=== PATIENT | male | born 1960 | race African-American/Black ===

== ENCOUNTER 2018-09-30 00:09 | Inpatient (IN) ==
[2018-09-30] MEDS ORDERED: D5% in 0.45% NACL 1,000 ML IVC PRN (01:43)
[2018-09-30] MEDS ORDERED: Insulin Regular, Human 100 UNIT/ML IV PRN ×2 (01:43)
[2018-09-30] MEDS ORDERED: 0.9 % Sodium Chloride 1,000 ML IVC PRN ×2 (01:45)
[2018-09-30] MEDS ORDERED: 0.9 % Sodium Chloride w KCl 20 MEQ/1,000 ML MLS IVC PRN (01:45)
--- NOTE | 2018-09-30 01:47 | Internal Med History&Physical ---
<Taniya San N - Last Filed: 09/30/18 05:51> Date of Encounter: 09/30/18 Time of Encounter: 01:47 Internal Medicine - H&P: HPI Chief complaint: Nausea/vomiting Admitted From: Hospital to Hospital Transfer Plans for Post Hospital Care: Home History of present illness: Mr. Vick is a 58 year old male with a history of asthma, CAD, diabetes, hypertension, renal disease, hypercholesterolemia, and myocardial infarction. Recent medical history is significant for hospitalization at this facility on 09/19/2018 for management of DKA and NSTEMI, with discharge on 09/25/2018. He arrived at [facility] as a transfer from [facility], where he presented for evaluation of nausea and vomiting. Patient was found to be in DKA, with glucose >700. Laboratory studies were also significant for WBC 28, troponin 0.67, and lactic acid 6.9. Patient was started on an insulin gtt and fluid hydration per DKA protocol. Patient was seen and evaluated shortly after arrival to this facility. At that time, he was somewhat uncooperative with exam, providing minimal response to questions. He voices significant nausea, but denies any abdominal pain, chest pain, shortness of breath, or other complaints at this time. Past Med Surg Social Fam HX - Past Medical History Medical history: asthma, coronary artery disease, diabetes, hypertension, myocardial infarction, RA, renal disease, other Additional medical history: hypercholesterolemia. chronic renal insufficiency stage III. diabetic neuropathy. diabetic retinopathy. vitamin d deficiency. overweight. riht sided spondyloysis. bronchitis Psychiatric history: no psych history - Past Surgical History Surgical History: cataract, cholecystectomy, orthopedic, other, other Additional surgical history: rotator cuff repair left. laser treatmet of both eyes. rotator cuff repair right. gallbladder surgery. left elbow surgery secondary to arthritis. right elbow surgery secondary to arthritis. heart cath- no stents. L elbow lateral epicondylitis. steroid injection back - Social History Smoking Status: Never smoker Smokeless Tobacco Status: No Alcohol use: none Drug use: none Internal Medicine - H&P: Meds Albuterol Sulfate [Proair Hfa] 2 puff IH Q4-6H PRN 09/19/18 [History] Atorvastatin Calcium [Lipitor] 20 mg PO DAILY 09/19/18 [History] Gabapentin 600 mg PO TID 09/19/18 [History] Insulin DETEMIR [Levemir] 20 unit SQ HS 09/19/18 [History] Insulin LISPRO [HumaLOG] 0 unit SQ TID 09/19/18 [History] Losartan Potassium 100 mg PO DAILY 09/19/18 [History] Metoprolol Succinate [Toprol Xl] 25 mg PO DAILY 09/19/18 [History] Famotidine [Pepcid] 20 mg PO BID tablet 09/25/18 [Rx] Famotidine [Pepcid] 20 mg PO BID 30 Days #60 tablet 09/25/18 [Rx] Mag Hydrox/Al Hydrox/Simeth [Maalox] 30 ml PO Q4H PRN udc 09/25/18 [Rx] Metoclopramide [Reglan] 10 mg PO QIDAC tablet 09/25/18 [Rx] Metoclopramide [Reglan] 10 mg PO QIDAC #120 tablet 09/25/18 [Rx] Omeprazole [PriLOSEC] 20 mg PO BIDAC #30 cap 09/25/18 [Rx] Omeprazole [PriLOSEC] 20 mg PO DAILY@0630 capsule. 09/25/18 [Rx] Sucralfate [Carafate] 1 gm PO TIDAC udc 09/25/18 [Rx] Sucralfate [Carafate] 1 gm PO TIDAC #90 mls 09/25/18 [Rx] Allergy/AdvReac Type Severity Reaction Status Date / Time morphine Allergy Itching Verified 07/13/18 13:39 ROS unobtainable: due to mental status, other (lack of patient cooperation) All Systems PM: A 10-system review of systems was performed and is negative for pertinent findings except as documented above in the HPI. - Constitutional Exam: GENERAL: Ill-appearing adult male in mild distress secondary to nausea. Patient is reluctant to answer questions, and provides limited information. HEENT: Atraumatic and normocephalic. CARDIOVASCULAR: Regular rate and rhythm. S1 and S2 present. No murmurs, gallops, or rubs. RESPIRATORY: Clear to auscultation bilaterally. Chest rises and falls symmetric ally without accessory muscle use. GASTROINTESTINAL: Abdomen is soft, nontender, nondistended. Bowel sounds present 4 quadrants. EXTREMITIES: No clubbing, cyanosis, or edema present in bilateral lower extremities. Mild right upper extremity edema present. SKIN: Warm, dry, and intact. NEUROLOGIC: No apparent focal deficits. Patient is minimally cooperative with exam. PSYCHIATRIC: Appropriate mood and affect. Internal Med - H&P Results - Labs CBC & Chem 7: 09/30/18 02:11 09/30/18 02:11 - Assessment and Plan (1) DKA (diabetic ketoacidoses) Current Visit: Yes Status: Acute Assessment and plan: Suspect secondary to medication noncompliance. Patient reportedly had initial serum glucose >700. Repeat laboratory studies obtained after arrival at [facility] were significant for glucose 324, with beta hydroxybutyric acid >2.00, and anion gap of 30. VBG demonstrates pH 7.37, PCO2 18, PO2 121, and HCO3 10. Hemoglobin A1c was noted to be elevated at 9.2 on 09/19/2018. Plan: - Continue insulin gtt and IVF hydration per DKA protocol. - Monitor and replete electrolytes Q2H per protocol. Qualifiers: Diabetes mellitus type: type 2 Diabetes mellitus complication detail: without coma Qualified Code(s): E11.10 - Type 2 diabetes mellitus with ketoacidosis without coma (2) NSTEMI (non-ST elevated myocardial infarction) Current Visit: Yes Status: Acute Assessment and plan: Initial troponin at outside facility was elevated at 0.67; repeat troponin obtained after arrival to [facility] was found to be significantly elevated at 13.78. Patient denies any chest pain or discomfort, and EKG performed at [facility] did not show any ST abnormalities or evidence of acute ischemia. - Stat repeat troponin pending. If troponin elevation is confirmed, will start heparin gtt. - Cardiology consult ordered. - Repeat and trend troponin Q6H. (3) Leukocytosis Current Visit: Yes Status: Acute Assessment and plan: Unclear etiology, secondary to DKA versus underlying infectious process. Patient was found to have initial CBC count of 28 at outside facility; repeat laboratory studies upon arrival to [facility] shows persistent leukocytosis with WBC 27.9. Patient was recently hospitalized for DKA, with discharge on 09/25/2018. During that admission, he was treated for suspected community acquired pneumonia //with doxycycline and ceftriaxone. Chest x-ray obtained at [facility] on 09/29/2018 does not demonstrate any findings concerning for acute pneumonia, and appears to be improved from previous studies. Patient does not have any apparent source of infection, and denies any fevers, chills, or acute illness. - No antimicrobial therapy initiated at this time. Patient's leukocytosis may be secondary to DKA; repeat CBC pending at ~1500. Qualifiers: Leukocytosis type: unspecified Qualified Code(s): D72.829 - Elevated white blood cell count, unspecified (4) Lactic acidosis Current Visit: Yes Status: Acute Assessment and plan: Unclear etiology, secondary to DKA versus underlying infectious process. Initial lactic acid at outside facility was elevated at 6.9; repeat obtained after arrival at [facility] was WNL at 1.3. - Continue IVF hydration as detailed above. (5) SENTHIL (acute kidney injury) Current Visit: Yes Status: Acute Assessment and plan: Suspect prerenal etiology of dehydration secondary to DKA. Laboratory studies are significant for a serum creatinine of 2.14; previous serum creatinine on 09/24/2018 was WNL at 1.00. - Continue IVF hydration per DKA protocol. - Avoid nephrotoxins and renally dose medications as appropriate. - Repeat and trend serum creatinine. (6) Swelling of right upper extremity Current Visit: Yes Status: Acute Assessment and plan: Patient reports right upper extremity swelling that has been present for the last week. He denies any pain or discomfort, and extremity does not appear to be cellulitic. - Right upper extremity doppler exam pending to rule out DVT. (7) DVT prophylaxis Current Visit: Yes Status: Acute Assessment and plan: - Heparin 5000units SQ Q12H. - Time Spent With Patient Total time spent is greater than 50% in coordination of care (as documented) at patient's floor/unit and/or counseling patient: <Aneesh Colón - Last Filed: 09/30/18 07:34> Date of Encounter: 09/30/18 Internal Medicine - H&P: HPI History of present illness: Mr. Vick is a 58 year old male All Systems PM: A 10-system review of systems was performed and is negative for pertinent findings except as documented above in the HPI. - Constitutional Vitals: Temp Pulse Resp BP Pulse Ox 100.0 F H 114 18 136/66 98 09/30/18 06:36 09/30/18 06:36 09/30/18 06:36 09/30/18 06:36 09/30/18 06:36 Internal Med - H&P Results - Labs CBC & Chem 7: 09/30/18 02:11 05/18/19 05:51 Labs: Short CBC 09/30/18 Range/Units 02:11 WBC 27.9 H D (4.3-11.1) K/mcL Hgb 11.0 L (12.9-16.9) g/dL Hct 34.4 L (37.5-50.1) % Plt Count 282 (140-400) K/mcL Neutrophils # 23.8 H (1.6-8.9) K/mcL BMP 09/30/18 09/30/18 02:11 05:51 Sodium 144 148 H Potassium 3.4 L 3.1 L Chloride 102 111 H Carbon Dioxide 12 L 16 L BUN 30 H 28 H Creatinine 2.14 H 1.94 H Glucose 324 H 158 H Calcium 8.3 L 8.3 L Cardiac Enzymes 09/30/18 09/30/18 Range/Units 02:11 05:51 Troponin I 13.78 H* 17.23 H* (< 0.04) ng/mL Liver Function 09/30/18 Range/Units 02:11 Total Bilirubin 0.5 (0.3-1.0) mg/dL AST 31 (13-39) Units/L ALT 15 (7-52) Units/L Alkaline Phosphatase 114 H (34-104) Units/L Albumin 3.6 (3.5-5.7) g/dL - ABG Interpretation ABG results: 09/30/18 02:49 VBG pH 7.37 VBG pCO2 18 L VBG pO2 121 H VBG HCO3 10 L - Time Spent With Patient Total time spent is greater than 50% in coordination of care (as documented) at patient's floor/unit and/or counseling patient: - Attending Attestation I saw and evaluated the patient. I reviewed the residents note, performed my own physical examination and agree with findings and plan as documented in the residents note. Patient seen and examined on 09/30/18. Patient presented with DKA, recently in the hospital for DKA, NSTEMI and gastroparesis. He has a history of non-compliance. Currently anion gap not closed, and troponin has elevated to 13.78. Stat repeat this morn ing shows that it has elevated again to 17.23. Patient denies chest pain, EKG does not show ST elevations. Heparin drip ordered, will have cardiology see patient this morning as well. Continue DKA protocol, follow up cardiology recommendations.
[2018-09-30] MEDS: Ondansetron 4 MG/2 ML VIAL IVP PRN ×2 (02:04→14:40)
[2018-09-30] MEDS: 0.9 % Sodium Chloride 1,000 ML IVC SCH (02:09)
[2018-09-30] MEDS: 0.9 % Sodium Chloride w KCl 20 MEQ/1,000 ML MLS IVC PRN ×2 (02:20→04:31)
[2018-09-30 02:22] LABS: Basophils % 0.2 %; Immature Granulocytes % 1.9 % (0-4); Lymphocytes % 3.5 %; Mean Corpuscular Hemoglobin 28.1 pg (28.0-33.3); Mean Platelet Volume 11.3 fL (9.4-12.4); Red Blood Count 3.92 M/mcL (4.19-5.50)
[2018-09-30] MEDS: Insulin Human Regular 100 UNIT in 0.9 % Sodium Chloride 100 ML IVC SCH ×4 (02:22→10:50)
[2018-09-30 02:24] LABS: Basophils # 0.1 K/mcL (0.0-0.2); Hematocrit 34.4 % (37.5-50.1); Mean Corpuscular Volume 87.8 fL (83.0-100.0); Monocytes # 2.5 K/mcL (0.0-1.3); Neutrophils # 23.8 K/mcL (1.6-8.9); Platelet Count 282 K/mcL (140-400); Segmented Neutrophils % 85.4 %
[2018-09-30 02:41] LABS: Albumin 3.6 g/dL (3.5-5.7); Albumin/Globulin Ratio 1.9 (1.1-2.2); Bilirubin,Total 0.5 mg/dL (0.3-1.0); Calcium 8.3 mg/dL (8.6-10.3); Globulin 1.9 g/dL (2.4-3.5); Magnesium 1.9 mg/dL (1.6-2.6); Platelet Estimate Normal (Normal); Potassium 3.4 mEq/L (3.5-5.1); Total Protein 5.5 g/dL (6.4-8.9)
[2018-09-30 02:52] LABS: VBG HCO3 10 mEq/L (21-27); VBG Ionized Calcium 0.97 mmol/L (1.15-1.35); VBG PCO2 18 mmHg (41-51); VBG PH 7.37 pH Units (7.32-7.42); VBG PO2 121 mmHg (25-50)
[2018-09-30 02:55] LABS: Phosphorous 2.5 mg/dL (2.7-4.5)
[2018-09-30] MEDS ORDERED: Naloxone 0.4 MG/ML INJ IVP PRN (03:25)
[2018-09-30] MEDS: D5% in 0.45% NACL w KCl 20 MEQ/1,000 ML MLS IVC PRN ×4 (05:47→22:34)
[2018-09-30] MEDS ORDERED: *HR* Heparin 5,000 UNIT/ML VIAL SQ SCH (06:00)
[2018-09-30 06:18] LABS: Calcium 8.3 mg/dL (8.6-10.3); Potassium 3.1 mEq/L (3.5-5.1)
[2018-09-30 06:39] LABS: Estimated Average Glucose 226 mg/dl; Hemoglobin A1C 9.5 %
[2018-09-30] MEDS ORDERED: *HR* Heparin 5,000 UNIT/ML VIAL IVP PRN ×2 (06:39)
[2018-09-30] MEDS ORDERED: *HR* Heparin 5,000 UNIT/ML VIAL IVP ONE (06:39)
--- NOTE | 2018-09-30 07:34 | Internal Med Progress Note ---
Hospitalist Progress Note - Encounter Date of Encounter: 09/30/18 Time of Encounter: 08:26 - Subjective Interval History: mild central chest pain abdominal pain no headache no dyspnea one PIV, needs central IV access for electrolyte replacement and NSTEMI mgmt - Exam Vitals: Temp Pulse Resp BP Pulse Ox 100.0 F H 114 18 136/66 98 09/30/18 06:36 09/30/18 06:36 09/30/18 06:36 09/30/18 06:36 09/30/18 06:36 Exam: GENERAL: Ill-appearing, no carido resp distress. Patient is reluctant to answer questions, and provides limited information. HEENT: Atraumatic and normocephalic. CARDIOVASCULAR: Regular rate and rhythm. S1 and S2 present. No murmurs, gallops, or rubs. RESPIRATORY: Clear to auscultation bilaterally. Chest rises and falls symmetrically without accessory muscle use. GASTROINTESTINAL: Abdomen is soft, nontender, nondistended. No guarding or rebound EXTREMITIES: No clubbing, cyanosis, or edema present in bilateral lower extremities. Mild right upper extremity edema present. SKIN: Warm, dry, and intact. NEUROLOGIC: No apparent focal deficits. Patient is minimally cooperative with exam. Wakes up to voice and no dysarthria - Assessment and Plan (1) SENTHIL (acute kidney injury) Current Visit: Yes Status: Acute (2) DKA (diabetic ketoacidoses) Current Visit: Yes Status: Acute (3) DVT prophylaxis Current Visit: Yes Status: Acute (4) Leukocytosis Current Visit: Yes Status: Acute (5) NSTEMI (non-ST elevated myocardial infarction) Current Visit: Yes Status: Acute (6) SENTHIL (acute kidney injury) Current Visit: No Status: Acute - Summary of Assessment and Plan Summary of Assessment and Plan: Per H&P: ""Mr. Vick is a 58 year old male with a history of asthma, CAD, di abetes, hypertension, renal disease, hypercholesterolemia, and myocardial infarction. Recent medical history is significant for hospitalization at this facility on 09/19/2018 for management of DKA and NSTEMI, with discharge on 09/25/2018. He arrived at [facility] as a transfer from [facility], where he presented for evaluation of nausea and vomiting. Patient was found to be in DKA, with glucose >700. Laboratory studies were also significant for WBC 28, troponin 0.67, and lactic acid 6.9. Patient was started on an insulin gtt and fluid hydration per DKA protocol. Patient was seen and evaluated shortly after arrival to this facility. At that time, he was somewhat uncooperative with exam, pro viding minimal response to questions. He voices significant nausea, but denies any abdominal pain, chest pain, shortness of breath, or other complaints at this time."" (1) DKA (diabetic ketoacidoses) Suspect secondary to medication non-adherence Hemoglobin A1c was noted to be elevated at 9.2 on 09/19/2018. Plan: - Continue insulin gtt and IVF hydration per DKA protocol. - Monitor and replete electrolytes Q2H per protocol. - IR not available, GS consulted for central venous access, appreciated (2) NSTEMI (non-ST elevated myocardial infarction) Troponin 0.67 --> 13 --> 17 - start heparin gtt once IV access available - Cardiology consult requested, will optimize fluid status and renal function in case he needs a [facility] today - Repeat and trend troponin Q6H - EKG prn chest pain (3) Leukocytosis Unclear etiology, secondary to DKA versus underlying infectious process. Patient was found to have initial CBC count of 28 at outside facility; repeat laboratory studies upon arrival to [facility] shows persistent leukocytosis with WBC 27.9. Patient was recently hospitalized for DKA, with discharge on 09/25/2018. During that admission, he was treated for suspected community acquired pneumonia //with doxycycline and ceftriaxone. Chest x-ray obtained at [facility] on 09/29/2018 does not demonstrate any findings concerning for acute pneumonia, and appears to be improved from previous studies. Patient does not have any apparent source of infection, and denies any fevers, chills, or acute illness. - No antimicrobial therapy initiated at this time. Patient's leukocytosis may be secondary to DKA; repeat CBC pending at ~1500. (4) Lactic acidosis Unclear etiology, secondary to DKA versus underlying infectious process. Initial lactic acid at outside facility was elevated at 6.9; repeat obtained after arrival at [facility] was WNL at 1.3. - Continue IVF hydration as detailed above. (5) SENTHIL (acute kidney injury) Suspect prerenal etiology of dehydration secondary to DKA. Laboratory studies are significant for a serum creatinine of 2.14; previous serum creatinine on 09/24/2018 was WNL at 1.00. - Continue IVF hydration per DKA protocol. - Avoid nephrotoxins and renally dose medications as appropriate. - Repeat and trend serum creatinine. (6) Swelling of right upper extremity Patient reports right upper extremity swelling that has been present for the las t week. He denies any pain or discomfort, and extremity does not appear to be cellulitic. - Right upper extremity doppler exam pending to rule out DVT. (7) DVT prophylaxis - Heparin gtt - Time Spent with Patient Total time spent is greater than 50% in coordination of care (as documented) at patient's floor/unit and/or counseling patient: Internal Medicine: Result - Labs CBC & Chem 7: 09/30/18 02:11 09/30/18 05:51 Labs: Short CBC 09/30/18 Range/Units 02:11 WBC 27.9 H D (4.3-11.1) K/mcL Hgb 11.0 L (12.9-16.9) g/dL Hct 34.4 L (37.5-50.1) % Plt Count 282 (140-400) K/mcL Neutrophils # 23.8 H (1.6-8.9) K/mcL BMP 09/30/18 09/30/18 02:11 05:51 Sodium 144 148 H Potassium 3.4 L 3.1 L Chloride 102 111 H Carbon Dioxide 12 L 16 L BUN 30 H 28 H Creatinine 2.14 H 1.94 H Glucose 324 H 158 H Calcium 8.3 L 8.3 L Cardiac Enzymes 09/30/18 09/30/18 Range/Units 02:11 05:51 Troponin I 13.78 H* 17.23 H* (< 0.04) ng/mL Liver Function 09/30/18 Range/Units 02:11 Total Bilirubin 0.5 (0.3-1.0) mg/dL AST 31 (13-39) Units/L ALT 15 (7-52) Units/L Alkaline Phosphatase 114 H (34-104) Units/L Albumin 3.6 (3.5-5.7) g/dL (2) DKA (diabetic ketoacidoses) Qualifiers: Diabetes mellitus type: type 2 Diabetes mellitus complication detail: without coma Qualified Code(s): E11.10 - Type 2 diabetes mellitus with ketoacidosis without coma (4) Leukocytosis Qualifiers: Leukocytosis type: unspecified Qualified Code(s): D72.829 - Elevated white blood cell count, unspecified
--- NOTE | 2018-09-30 08:59 | Cardiology Consult Note ---
Date of Encounter: 09/30/18 Time of Encounter: 08:00 Assessment and Plan (1) Leukocytosis Current Visit: Yes Status: Acute Per cardiology: -WBC elevated, lactic acid elevated, tachycardic. -Blood cultures pending. -Temp 100.2. -Reports fever, chills. -Management per primary service. Qualifiers: Leukocytosis type: unspecified Qualified Code(s): D72.829 - Elevated white blood cell count, unspecified (2) NSTEMI (non-ST elevated myocardial infarction) Current Visit: Yes Status: Acute Per cardiology: -NSTEMI, trops 0.18 Vani, 13.78, 17.23. -Denies chest pain. -ECG with ST, non-specific ST and T wave abnormalities noted. -Heparin drip ordered, however not on currently due to need for peripheral IV access-Central line placement pending. -ON asa, statin. -TTE 09/2018 with LVEF preserved, no wall motion abnromalities. -[facility] [place] [place] with moderate CAD. -Recommend heparin drip. Will add BB. -Will repeat limited echo. -Plan for LHC when medically stable, prior to discharge. No urgent need for LHC at this time. (3) SENTHIL (acute kidney injury) Current Visit: Yes Status: Acute Per cardiology: -SENTHIL noted, creatinine 2.6 Vani. -Improving. -Management per primary service. (4) DKA (diabetic ketoacidoses) Current Visit: Yes Status: Acute Per cardiology: -DKA noted. -Management per primary service. Qualifiers: Diabetes mellitus type: type 2 Diabetes mellitus complication detail: without coma Qualified Code(s): E11.10 - Type 2 diabetes mellitus with ketoacidosis without coma Discussion w patient/family: The assessment and plan as outlined above was discussed with the patient who expressed understanding and agreement. All questions were answered. Thank you for involving us in the care of your patient. Please call with any questions. Discussed and reviewed with . History of Present Illness Consult date: 09/30/18 Requesting physician: Taniya San Consult reason: NSTEMI Chief complaint: abdominal pain History of present illness: Mr. Vick is a 58 year old male with a relevant past medical history of DM, HTN, HLD, CAD, renal insufficiency, diabetic neuropathy, asthma, recent admission for DKA, pneumonia, who presented to [facility] with complaints of abdominal pain and nausea, vomiting. Patient is somewhat uncooperative with history today. Patient refusing to speak, however will nod his head "yes and no" to questions. Patient denies chest pain. Denies shortness of breath. Reports fatigue. Reports fever, chills. Past Med Surg Social Fam HX - Past Medical History Attestation: Yes The following information was validated with the patient. Source: patient, old records reviewed Medical history: asthma, coronary artery disease, diabetes, hypertension, myocardial infarction, RA, renal disease, other Additional medical history: hypercholesterolemia. chronic renal insufficiency stage III. diabetic neuropathy. diabetic retinopathy. vitamin d deficiency. overweight. riht sided spondyloysis. bronchitis Psychiatric history: no psych history - Past Surgical History Surgical History: cataract, cholecystectomy, orthopedic, other, other Additional surgical history: rotator cuff repair left. laser treatmet of both eyes. rotator cuff repair right. gallbladder surgery. left elbow surgery secondary to arthritis. right elbow surgery secondary to arthritis. heart cath- no stents. L elbow lateral epicondylitis. steroid injection back - Social History Smoking Status: Never smoker Smokeless Tobacco Status: No Alcohol use: none Drug use: none Medications and Allergies Albuterol Sulfate [Proair Hfa] 2 puff IH Q4-6H PRN 09/19/18 [History] Atorvastatin Calcium [Lipitor] 20 mg PO DAILY 09/19/18 [History] Gabapentin 600 mg PO TID 09/19/18 [History] Insulin DETEMIR [Levemir] 20 unit SQ HS 09/19/18 [History] Insulin LISPRO [HumaLOG] 0 unit SQ TID 09/19/18 [History] Losartan Potassium 100 mg PO DAILY 09/19/18 [History] Metoprolol Succinate [Toprol Xl] 25 mg PO DAILY 09/19/18 [History] Famotidine [Pepcid] 20 mg PO BID tablet 09/25/18 [Rx] Famotidine [Pepcid] 20 mg PO BID 30 Days #60 tablet 09/25/18 [Rx] Mag Hydrox/Al Hydrox/Simeth [Maalox] 30 ml PO Q4H PRN udc 09/25/18 [Rx] Metoclopramide [Reglan] 10 mg PO QIDAC tablet 09/25/18 [Rx] Metoclopramide [Reglan] 10 mg PO QIDAC #120 tablet 09/25/18 [Rx] Omeprazole [PriLOSEC] 20 mg PO BIDAC #30 cap 09/25/18 [Rx] Omeprazole [PriLOSEC] 20 mg PO DAILY@0630 capsule. 09/25/18 [Rx] Sucralfate [Carafate] 1 gm PO TIDAC udc 09/25/18 [Rx] Sucralfate [Carafate] 1 gm PO TIDAC #90 mls 09/25/18 [Rx] Allergy/AdvReac Type Severity Reaction Status Date / Time morphine Allergy Itching Verified 07/13/18 13:39 All Systems Review: The remainder of the systems were reviewed and are negative - Cardiovascular Cardiovascular: as per HPI - Gastrointestinal Gastrointestinal: abdominal pain, nausea Physical Examination Vital Signs, Last 4 Hours Temp Pulse Resp BP Pulse Ox 09/30/18 07:30 100.2 F H 09/30/18 06:36 100.0 F H 114 18 136/66 98 General: Other (Ill appearing) HEENT: Atraumatic, Normocephaly, Mucus Membranes Moist Neck: No JVD, Normal carotid pulses Cardiac: Reg Rate and Rhythm, Normal S1 and S2, No Murmur Lungs: Normal Breath Sounds, No Wheeze, Rales, Rhonchi Neuro: Alert and responsive, No focal deficits noted Abdomen: Soft Skin: No rashes noted on visualized skin Musculoskeletal: No Chest Wall Tenderness Extremities: No Clubbing, No Cyanosis, No Edema, Normal Pulses Results 09/30/18 02:11 09/30/18 05:51 Lab Results Active Medications Aspirin (Aspirin) 325 mg PO ONCE ONE Stop: 09/30/18 09:06 Aspirin (Aspirin) 81 mg PO DAILY MAYRA Stop: 04/02/19 09:01 Atorvastatin Calcium (Lipitor) 80 mg PO HS MAYRA Stop: 04/01/19 09:16 Dextrose/Water (Dextrose 50% (Syg)) 25 ml IVP [id number] PRN PRN Reason: Hypoglycemia Stop: 04/01/19 01:44 Heparin Sodium (Porcine) (Heparin) 4,000 unit IVP Q6HR PRN PRN Reason: SEE COMMENTS Stop: 04/01/19 06:40 Heparin Sodium (Porcine) (Heparin) 2,000 unit IVP Q6H PRN PRN Reason: SEE COMMENTS Stop: 04/01/19 06:40 Sodium Chloride (0.9 % Sodium Chloride) 1,000 mls @ 500 mls/hr IVC .Q2H PRN; Protocol PRN Reason: SEE COMMENTS Stop: 04/01/19 01:46 Sodium Chloride (0.9 % Sodium Chloride) 1,000 mls @ 750 mls/hr IVC .Q1H20M PRN; Protocol PRN Reason: SEE COMMENTS Stop: 04/01/19 01:46 Potassium Chloride/Sodium Chloride (Kcl 20 Meq In 0.9% Sodium Chloride) 20 meq in 1,000 mls @ 500 mls/hr IVC .Q2H PRN; Protocol PRN Reason: SEE COMMENTS Stop: 04/01/19 01:46 Last Titration: 09/30/18 05:48 Dose: 0 mls/hr, 0 mls/hr Documented by: Potassium Chloride/Sodium Chloride (Kcl 20 Meq In 0.9% Sodium Chloride) 20 meq in 1,000 mls @ 750 mls/hr IVC .Q1H20M PRN; Protocol PRN Reason: SEE COMMENTS Stop: 04/01/19 01:46 Dextrose/Sodium Chloride (D5% And 0.45% Nacl 1000 Ml Bag) 1,000 mls @ 250 mls/hr IVC .Q4H PRN PRN Reason: See comments Stop: 04/01/19 01:44 Potassium Chloride/Dextrose/Sod Cl (Kcl 20meq In D5%-0.45 Nacl) 20 meq in 1,000 mls @ 250 mls/hr IVC .Q4H PRN PRN Reason: See Comments Stop: 04/01/19 01:44 Last Admin: 09/30/18 05:47 Dose: 250 mls/hr Documented by: Insulin Human Regular 100 unit (/ Sodium Chloride) 101 mls @ 9.272 mls/hr IVC CONT MAYRA; Protocol Stop: 04/01/19 01:46 Last Titration: 09/30/18 08:43 Dose: 0.35 unit/kg/hr, 32.5 mls/hr Documented by: Insulin Human Regular 100 unit (/ Sodium Chloride) 101 mls @ 9.272 mls/hr IVC CONT MAYRA; Protocol Stop: 04/01/19 01:46 Last Titration: 09/30/18 06:20 Dose: Infused Documented by: Potassium Chloride (Potassium Chloride 10 Meq/100ml) 10 meq in 100 mls @ 100 mls/hr IVPB Q1H PRN PRN Reason: Potassium less than 3.3 mEq/L Calcium Gluconate 1,000 mg/ (Sodium Chloride) 110 mls @ 220 mls/hr IVPB Q6HR PRN PRN Reason: Hypocalcemia Stop: 04/01/19 02:58 Magnesium Sulfate 2 gm/ Sodium (Chloride) 104 mls @ 52 mls/hr IVPB Q6H PRN PRN Reason: hypomagnesemia Stop: 04/01/19 02:58 Last Admin: 09/30/18 05:00 Dose: 52 mls/hr Documented by: Potassium Phosphate 44 meq/ (Sodium Chloride) 260 mls @ 40 mls/hr IVPB Q10H PRN PRN Reason: Phosphate less than 3 Stop: 04/01/19 02:58 Heparin Sodium/Dextrose (Heparin 25,000 Unit/250 Ml D5w) 25,000 unit in 250 mls @ 10.098 mls/hr IVC .Q24H [facility]; Protocol Stop: 04/01/19 06:46 Insulin Human Regular (Humulin R) 10 unit 0.14 unit/kg (10 unit) IV ONCE PRN PRN Reason: SEE COMMENTS Insulin Human Regular (Humulin R) 5 unit IV ONCE PRN PRN Reason: SEE COMMENTS Stop: 04/01/19 01:44 Naloxone HCl (Narcan) 0.4 mg IVP Q2MPRN PRN PRN Reason: SEE COMMENTS Stop: 04/01/19 03:26 Ondansetron HCl (Zofran) 4 mg IVP Q6HR PRN; Protocol PRN Reason: Nausea And Vomiting Stop: 04/01/19 01:47 Last Admin: 09/30/18 02:04 Dose: 4 mg Documented by: Promethazine HCl (Phenergan) 12.5 mg IVP Q6HR PRN PRN Reason: Nausea And Vomiting Stop: 04/01/19 07:13 Last Admin: 09/30/18 09:13 Dose: 12.5 mg Documented by: Laboratory Tests 09/24/18 09/30/18 09/30/18 06:15 02:11 02:11 WBC 27.9 H D Hgb 11.0 L Creatinine 1.00 2.14 H Troponin I 09/30/18 09/30/18 02:11 05:51 WBC Hgb Creatinine Troponin I 13.78 H* 17.23 H* - Imaging and Cardiology Chest Xray: report reviewed Echo: pending, report reviewed - EKG Interpretation EKG results cardiology: personally reviewed (ECG with ST, HR 107. Non-specific ST and T wave abnormalities noted.), other (Telemetry reviewed with average HR previous 12 hours noted to be 111, ST. PVCs and PACs noted.)
[2018-09-30] MEDS ORDERED: Aspirin 325 MG TABLET PO ONE (09:05)
--- NOTE | 2018-09-30 09:10 | Acute Care Surg Procedure Note ---
Date of procedure: 09/30/18 Pre-op diagnosis: Difficult IV access Post-op diagnosis: same Procedure: Right IJ CVC placement Findings: After obtaining consent the patient right lateral neck was prepped and draped in normal fashion. A timeout was performed and the patient was placed in a Trendelenburg position. First a sterile ultrasound probe was used to identify the location of the right internal jugular vein. 1% lidocaine was then used to infiltrate the epidermal and dermal layer overlying the vein followed by accessing the vein via the Seldinger technique with an 16-gauge needle. A guidewire was then advanced through the needle into the vein followed by removal of the vein and advancement of a 16 cm triple lumen catheter. The catheter was secured in place with 3-0 silk sutures and each port was tested for patency with withdrawal of blood and infusion of normal saline. A Tegaderm was placed over the insertion site had a chest x-ray is pending for placement. Anesthesia: local Surgeon: Benji Lima Pathology: none sent Condition: stable Disposition: no change
[2018-09-30] MEDS: *HR* Promethazine 25 MG/ML VIAL IVP PRN ×2 (09:13→20:40)
[2018-09-30] MEDS ORDERED: Nitroglycerin 1 INCH/GM PACKET TP ONE (09:21)
[2018-09-30 09:39] LABS: Basophils % 0.1 %; Hematocrit 33.5 % (37.5-50.1); Hemoglobin 11.4 g/dL (12.9-16.9); Immature Granulocytes % 0.7 % (0-4); Lymphocytes # 1.2 K/mcL (0.6-4.6); Lymphocytes % 4.9 %; Mean Corpuscular Hemoglobin 28.7 pg (28.0-33.3); Mean Corpuscular Volume 84.4 fL (83.0-100.0); Mean Platelet Volume 10.6 fL (9.4-12.4); Monocytes # 2.2 K/mcL (0.0-1.3); Monocytes % 9.3 %; Neutrophils # 20.3 K/mcL (1.6-8.9); Platelet Count 347 K/mcL (140-400); Red Blood Count 3.97 M/mcL (4.19-5.50); Red Cell Distribution Width 13.7 % (11.5-14.5)
[2018-09-30 09:46] LABS: Heparin anti-factor XA UFH 0.06 IU/mL (0.30-0.70)
[2018-09-30 09:47] LABS: Prothrombin Time 11.6 Seconds (9.4-12.1)
[2018-09-30 09:53] LABS: Albumin 3.5 g/dL (3.5-5.7); Albumin/Globulin Ratio 1.8 (1.1-2.2); Bilirubin,Total 0.4 mg/dL (0.3-1.0); Calcium 8.6 mg/dL (8.6-10.3); Globulin 1.9 g/dL (2.4-3.5); Magnesium 2.1 mg/dL (1.6-2.6); Potassium 2.7 mEq/L (3.5-5.1); Total Protein 5.4 g/dL (6.4-8.9)
[2018-09-30] MEDS: Potassium Phosphate 44 MEQ in 0.9 % Sodium Chloride 250 ML IVPB PRN (10:12)
[2018-09-30] MEDS: Heparin 25,000 UNIT/250 ML D5W 25,000 UNIT/250 ML IV.SOLN IVC SCH (10:13)
[2018-09-30] MEDS: *HR* Dextrose 50 % in Water (Syg) 50 ML SYRINGE IVP PRN (10:54)
[2018-09-30 11:21] LABS: Troponin I 15.72 ng/mL (< 0.04)
[2018-09-30] MEDS: Metoprolol XL (24 HR) Succ 25 MG TAB.ER.24H PO SCH (11:32)
[2018-09-30 13:10] LABS: Basophils % 0.1 %; Hematocrit 33.6 % (37.5-50.1); Hemoglobin 11.4 g/dL (12.9-16.9); Immature Granulocytes % 0.7 % (0-4); Lymphocytes # 1.4 K/mcL (0.6-4.6); Mean Corpuscular HGB Conc 33.9 g/dL (31.6-35.5); Mean Corpuscular Hemoglobin 28.8 pg (28.0-33.3); Mean Corpuscular Volume 84.8 fL (83.0-100.0); Mean Platelet Volume 10.5 fL (9.4-12.4); Monocytes # 2.9 K/mcL (0.0-1.3); Monocytes % 12.2 %; Neutrophils # 19.4 K/mcL (1.6-8.9); Platelet Count 336 K/mcL (140-400); Red Blood Count 3.96 M/mcL (4.19-5.50)
[2018-09-30 13:18] LABS: VBG HCO3 24 mEq/L (21-27); VBG PCO2 42 mmHg (41-51); VBG PH 7.36 pH Units (7.32-7.42); VBG PO2 141 mmHg (25-50)
[2018-09-30 13:30] LABS: Potassium 3.1 mEq/L (3.5-5.1)
[2018-09-30 16:08] LABS: Calcium 7.7 mg/dL (8.6-10.3); Potassium 3.7 mEq/L (3.5-5.1)
[2018-09-30 16:19] LABS: Troponin I 9.25 ng/mL (< 0.04)
[2018-09-30] MEDS: Piperacillin/Tazobactam 3.375 GM in 0.9 % Sodium Chloride Mini Bag 100 ML IVPB SCH ×2 (16:24→23:42)
[2018-09-30 17:09] LABS: VBG HCO3 22 mEq/L (21-27); VBG PCO2 39 mmHg (41-51); VBG PH 7.37 pH Units (7.32-7.42); VBG PO2 200 mmHg (25-50)
[2018-09-30 17:30] LABS: Calcium 7.7 mg/dL (8.6-10.3); Potassium 3.7 mEq/L (3.5-5.1)
[2018-09-30 21:07] LABS: VBG HCO3 24 mEq/L (21-27); VBG Ionized Calcium 1.17 mmol/L (1.15-1.35); VBG PCO2 41 mmHg (41-51); VBG PH 7.38 pH Units (7.32-7.42); VBG PO2 163 mmHg (25-50)
[2018-09-30 21:21] LABS: Albumin 3.1 g/dL (3.5-5.7); Albumin/Globulin Ratio 1.7 (1.1-2.2); Bilirubin,Total 0.4 mg/dL (0.3-1.0); Calcium 8.3 mg/dL (8.6-10.3); Globulin 1.8 g/dL (2.4-3.5); Potassium 3.1 mEq/L (3.5-5.1); Total Protein 4.9 g/dL (6.4-8.9)
[2018-09-30 21:21] LABS: Magnesium 1.8 mg/dL (1.6-2.6); Phosphorous 1.7 mg/dL (2.7-4.5)
[2018-09-30 21:31] LABS: Troponin I 7.01 ng/mL (< 0.04)
[2018-09-30] MEDS: Metoclopramide 10 MG/2 ML VIAL IVP SCH (23:40)
[2018-10-01] MEDS: *HR* Dextrose 50 % in Water (Syg) 50 ML SYRINGE IVP PRN (00:28)
[2018-10-01] MEDS: Potassium Phosphate 44 MEQ in 0.9 % Sodium Chloride 250 ML IVPB PRN (00:31)
[2018-10-01] MEDS: D5% in 0.45% NACL w KCl 20 MEQ/1,000 ML MLS IVC PRN ×3 (02:45→19:02)
[2018-10-01] MEDS: Insulin Human Regular 100 UNIT in 0.9 % Sodium Chloride 100 ML IVC SCH ×3 (04:40→22:06)
[2018-10-01 05:04] LABS: Basophils % 0.1 %; Eosinophils % 0.1 %; Hematocrit 31.8 % (37.5-50.1); Hemoglobin 10.4 g/dL (12.9-16.9); Immature Granulocytes % 0.3 % (0-4); Lymphocytes # 1.5 K/mcL (0.6-4.6); Lymphocytes % 10.1 %; Mean Corpuscular HGB Conc 32.7 g/dL (31.6-35.5); Mean Corpuscular Hemoglobin 28.1 pg (28.0-33.3); Mean Corpuscular Volume 85.9 fL (83.0-100.0); Monocytes # 1.3 K/mcL (0.0-1.3); Monocytes % 8.6 %; Neutrophils # 12.3 K/mcL (1.6-8.9); Platelet Count 264 K/mcL (140-400); Red Cell Distribution Width 14.1 % (11.5-14.5); Segmented Neutrophils % 80.8 %
[2018-10-01 05:09] LABS: VBG Ionized Calcium 1.12 mmol/L (1.15-1.35)
[2018-10-01 05:15] LABS: Heparin anti-factor XA UFH 0.35 IU/mL (0.30-0.70)
[2018-10-01 05:16] LABS: INR 1.1; Prothrombin Time 12.1 Seconds (9.4-12.1)
[2018-10-01 05:25] LABS: Albumin 2.9 g/dL (3.5-5.7); Albumin/Globulin Ratio 1.5 (1.1-2.2); Bilirubin,Total 0.5 mg/dL (0.3-1.0); Calcium 7.5 mg/dL (8.6-10.3); Globulin 1.9 g/dL (2.4-3.5); Potassium 3.4 mEq/L (3.5-5.1); Total Protein 4.8 g/dL (6.4-8.9)
[2018-10-01 05:28] LABS: Troponin I 5.27 ng/mL (< 0.04)
[2018-10-01] MEDS: Metoclopramide 10 MG/2 ML VIAL IVP SCH ×4 (05:57→23:00)
[2018-10-01] MEDS: Heparin 25,000 UNIT/250 ML D5W 25,000 UNIT/250 ML IV.SOLN IVC SCH (06:55)
--- NOTE | 2018-10-01 07:26 | Internal Med Progress Note ---
Hospitalist Progress Note - Encounter Date of Encounter: 10/01/18 Time of Encounter: 07:36 - Subjective Interval History: mild central chest pain from yesterday has now resolved abdominal pain from yesterday has now resolved no headache, dizziness no dyspnea no further cough, sputum, chills or rigors still having nausea, and unable to take PO intake - Exam Vitals: Temp Pulse Resp BP Pulse Ox 99.7 F H 113 20 164/102 94 10/01/18 06:37 10/01/18 06:37 10/01/18 06:37 10/01/18 06:37 10/01/18 06:37 Exam: GENERAL: appears better than yesterday, now chronically ill appearing, no cardio resp distress. Patient is reluctant to answer questions, and provides limited information though did answer non-leading quesitons today HEENT: Atraumatic and normocephalic. CARDIOVASCULAR: Regular rate and rhythm. S1 and S2 present. No murmurs, gallops, or rubs. RESPIRATORY: Left basilar crackles. Chest rises and falls symmetrically without accessory muscle use. GASTROINTESTINAL: Abdomen is soft, nontender, nondistended. No guarding or rebound EXTREMITIES: No clubbing, cyanosis, or edema present in bilateral lower extremities. Mild right upper extremity edema present. SKIN: Warm, dry, and intact. NEUROLOGIC: No apparent focal deficits. Wakes up to voice and no dysarthria or gross focal deficits. - Assessment and Plan (1) SENTHIL (acute kidney injury) Current Visit: Yes Status: Acute (2) DKA (diabetic ketoacidoses) Current Visit: Yes Status: Acute (3) DVT prophylaxis Current Visit: Yes Status: Acute (4) Leukocytosis Current Visit: Yes Status: Acute (5) NSTEMI (non-ST elevated myocardial infarction) Current Visit: Yes Status: Acute (6) SENTHIL (acute kidney injury) Current Visit: No Status: Acute (7) Pneumonia Current Visit: No Status: Acute (8) Sepsis Current Visit: No Status: Acute - Summary of Assessment and Plan Summary of Assessment and Plan: Per H&P: ""Mr. Vick is a 58 year old male with a history of asthma, CAD, diabetes, hypertension, renal disease, hypercholesterolemia, and myocardial infarction. Recent medical history is significant for hospitalization at this facility on 09/19/2018 for management of DKA and NSTEMI, with discharge on 09/25/2018. He arrived at [facility] as a transfer from [facility], where he presented for evaluation of nausea and vomiting. Patient was found to be in DKA, with glucose >700. Laboratory studies were also significant for WBC 28, troponin 0.67, and lactic acid 6.9. Patient was started on an insulin gtt and fluid hydration per DKA protocol. Patient was seen and evaluated shortly after arrival to this facility. At that time, he was somewhat uncooperative with exam, providing minimal response to questions. He voices significant nausea, but denies any abdominal pain, chest pain, shortness of breath, or other complaints at this time."" (1) DKA (diabetic ketoacidoses), resolving Suspect secondary to pneumonia. Medication non-adherence has been suspected in the past, but patient reports not missing basal insulin, his stated dose and administration corroborates with whats in the chart Hemoglobin A1c was noted to be elevated at 9.2 on 09/19/2018. - Continue insulin gtt and IVF hydration per DKA protocol; transition to subcutaneous insulin when able to tolerate oral intake - Monitor and replete electrolytes Q2H per protocol. (2) NSTEMI (non-ST elevated myocardial infarction) Troponin peak 17 - cont heparin gtt for 48 hours total - Cardiology appreciated: [facility] once recovered from SENTHIL and DKA - No further troponin checks indicated - EKG prn chest pain - Echo: 65-70%, left pleural effusion - Patient could not take aspirin and metoprolol due to nausea, counseled and he will try today (3) HCAP/sepsis - Patient reported chills, rigors, cough with brown sputum, symptoms similar to prior pneumonia and sepsis before admission. Initial CXR unremarkable at [facility] likely due to volume depletion, and repeat CXR here showed new basilar opacities. Recently treated for community acquired pneumonia with doxycycline and ceftriaxone around 09/25/18, so this could be HCAP, possibly Abx failure as he never completely recovered from last episode. - WBC 28k --> 15k - Cont Zosyn/vancomycin (09/30 PM - current) (4) Lactic acidosis, resolved - Unclear etiology, secondary to DKA versus underlying infectious process. Initial lactic acid at outside facility was elevated at 6.9; repeat obtained after arrival at [facility] was WNL at 1.3. - Continue IVF hydration as detailed above. (5) SENTHIL (acute kidney injury) (6) Urinary retention 09/30/18 with 700 ml retained - Cr 2.1 --> 1.5 (baseline 1.0) - Continue IVF hydration per DKA protocol. - Avoid nephrotoxins and renally dose medications as appropriate. (7) RUE basilic and cephalic vein supeficial thrombosis - Warm compresses (8) DVT prophylaxis - Heparin gtt, switch to SubQa after 48 hours - Time Spent with Patient Total time spent is greater than 50% in coordination of care (as documented) at patient's floor/unit and/or counseling patient: Internal Medicine: Result - Labs CBC & Chem 7: 10/01/18 04:25 10/01/18 04:25 Labs: Short CBC 09/30/18 09/30/18 10/01/18 Range/Units 09:17 12:56 04:25 WBC 23.9 H 23.9 H 15.2 H (4.3-11.1) K/mcL Hgb 11.4 L 11.4 L 10.4 L (12.9-16.9) g/dL Hct 33.5 L 33.6 L 31.8 L (37.5-50.1) % Plt Count 347 336 264 (140-400) K/mcL Neutrophils # 20.3 H 19.4 H 12.3 H (1.6-8.9) K/mcL BMP 09/30/18 09/30/18 09/30/18 09:17 12:56 15:25 Sodium 148 H 147 H 144 Potassium 2.7 L 3.1 L 3.7 Chloride 110 H 111 H 109 H Carbon Dioxide 25 23 21 L BUN 24 H 23 H 22 H Creatinine 1.78 H 1.67 H 1.56 H Glucose 119 H 140 H 231 H Calcium 8.6 8.0 L 7.7 L 09/30/18 09/30/18 10/01/18 16:55 20:44 04:25 Sodium 144 145 144 Potassium 3.7 3.1 L 3.4 L Chloride 109 H 113 H 112 H Carbon Dioxide 22 L 24 23 BUN 21 H 19 16 Creatinine 1.52 H 1.55 H 1.55 H Glucose 266 H 163 H 167 H Calcium 7.7 L 8.3 L 7.5 L Cardiac Enzymes 09/30/18 09/30/1819 Range/Units 09:17 15:25 20:44 Troponin I 15.72 H* 9.25 H* 7.01 H* (< 0.04) ng/mL 10/01/18 Range/Units 04:25 Troponin I 5.27 H* (< 0.04) ng/mL Liver Function 09/30/18 09/30/18 10/01/18 Range/Units 09:17 20:44 04:25 Total Bilirubin 0.4 0.4 0.5 (0.3-1.0) mg/dL AST 38 29 25 (13-39) Units/L ALT 16 14 13 (7-52) Units/L Alkaline Phosphatase 106 H 95 92 (34-104) Units/L Albumin 3.5 3.1 L 2.9 L (3.5-5.7) g/dL - ABG Interpretation ABG results: PT/INR, D-dimer PT 12.1 Seconds (9.4-12.1) 10/01/18 04:25 - Impressions Impressions Chest X-Ray 09/30/18 09:20 IMPRESSION: 1. Right CVC tip in the distal superior vena cava. No pneumothorax. 2. New mild medial bibasilar opacities which may represent atelectasis versus developing pneumonia. D/ / Devaughn Zeng MD / Devaughn Zeng MD Interpreting Provider: Devaughn Zeng MD Consult Discharge Plan - Plan Referrals: Darien Santiago MD [Primary Care Provider] - (2) DKA (diabetic ketoacidoses) Qualifiers: Diabetes mellitus type: type 2 Diabetes mellitus complication detail: without coma Qualified Code(s): E11.10 - Type 2 diabetes mellitus with ketoacidosis without coma (4) Leukocytosis Qualifiers: Leukocytosis type: unspecified Qualified Code(s): D72.829 - Elevated white blood cell count, unspecified (7) Pneumonia Qualifiers: Qualified Code(s): J18.9 - Pneumonia, unspecified organism (8) Sepsis Qualifiers: Sepsis type: sepsis due to unspecified organism Qualified Code(s): A41.9 - Sepsis, unspecified organism
[2018-10-01] MEDS: Metoprolol XL (24 HR) Succ 25 MG TAB.ER.24H PO SCH (08:04)
[2018-10-01] MEDS: Aspirin 81 MG TAB.CHEW PO SCH (08:04)
[2018-10-01] MEDS: Piperacillin/Tazobactam 3.375 GM in 0.9 % Sodium Chloride Mini Bag 100 ML IVPB SCH ×3 (08:04→23:01)
--- NOTE | 2018-10-01 08:04 | Event Note ---
Date of Encounter: 10/01/18 Time of Encounter: 08:02 - Cardiology Event Note NSTEMI in the setting of PNA, DKA. On heparin drip. Denies chest pain. No acute ECG changes noted. Plan for LHC once recovered from acute illness. TTE with LVEF preserved, large pleural effusion noted, no wall motion abnormalities. Ca rdiology will continue to monitor.
[2018-10-01 11:16] LABS: VBG HCO3 24 mEq/L (21-27); VBG PCO2 45 mmHg (41-51); VBG PH 7.35 pH Units (7.32-7.42); VBG PO2 209 mmHg (25-50)
[2018-10-01 11:17] LABS: Calcium 7.6 mg/dL (8.6-10.3); Phosphorous 3.2 mg/dL (2.7-4.5); Potassium 3.3 mEq/L (3.5-5.1)
[2018-10-01] MEDS ORDERED: Nitroglycerin 1 INCH/GM PACKET TP ONE (20:43)
[2018-10-01 23:27] LABS: VBG Ionized Calcium 1.26 mmol/L (1.15-1.35)
[2018-10-02] MEDS: Pantoprazole 40 MG VIAL IVP SCH ×2 (00:05→06:13)
[2018-10-02] MEDS: *HR* Dextrose 50 % in Water (Syg) 50 ML SYRINGE IVP PRN (00:07)
[2018-10-02] MEDS: Heparin 25,000 UNIT/250 ML D5W 25,000 UNIT/250 ML IV.SOLN IVC SCH (03:46)
[2018-10-02] MEDS: D5% in 0.45% NACL w KCl 20 MEQ/1,000 ML MLS IVC PRN (03:50)
[2018-10-02 04:03] LABS: Basophils % 0.2 %; Eosinophils # 0.1 K/mcL (0.0-0.6); Eosinophils % 1.2 %; Hematocrit 30.1 % (37.5-50.1); Hemoglobin 9.8 g/dL (12.9-16.9); Immature Granulocytes % 0.1 % (0-4); Lymphocytes # 1.9 K/mcL (0.6-4.6); Lymphocytes % 21.9 %; Mean Corpuscular HGB Conc 32.6 g/dL (31.6-35.5); Mean Corpuscular Hemoglobin 28.5 pg (28.0-33.3); Mean Corpuscular Volume 87.5 fL (83.0-100.0); Mean Platelet Volume 10.7 fL (9.4-12.4); Monocytes # 0.7 K/mcL (0.0-1.3); Monocytes % 8.4 %; Neutrophils # 5.9 K/mcL (1.6-8.9); Platelet Count 198 K/mcL (140-400); Red Blood Count 3.44 M/mcL (4.19-5.50); Red Cell Distribution Width 14.5 % (11.5-14.5); Segmented Neutrophils % 68.2 %
[2018-10-02 04:23] LABS: BUN/Creatinine Ratio 7 (6-26); Blood Urea Nitrogen 9 mg/dL (6-20); Carbon Dioxide 23 mEq/L (23-29); Chloride 111 mEq/L (98-107); Glucose 175 mg/dL (70-105); Potassium 3.7 mEq/L (3.5-5.1); Sodium 142 mEq/L (136-145); eGFR For Non-African Americans > 60 (> 60)
[2018-10-02 04:24] LABS: Alanine Aminotransferase 12 Units/L (7-52); Albumin 2.8 g/dL (3.5-5.7); Albumin/Globulin Ratio 1.5 (1.1-2.2); Alkaline Phosphatase 85 Units/L (34-104); Aspartate Amino Transferase 19 Units/L (13-39); Bilirubin,Total 0.7 mg/dL (0.3-1.0); Calcium 7.7 mg/dL (8.6-10.3); Globulin 1.9 g/dL (2.4-3.5); Magnesium 1.9 mg/dL (1.6-2.6); Osmolality,Calculated 297 (280-300); Phosphorous 3.1 mg/dL (2.7-4.5); Total Protein 4.7 g/dL (6.4-8.9)
[2018-10-02] MEDS: Metoclopramide 10 MG/2 ML VIAL IVP SCH ×3 (06:12→17:03)
[2018-10-02] MEDS: Aspirin 81 MG TAB.CHEW PO SCH ×2 (07:57→09:36)
[2018-10-02] MEDS: Metoprolol XL (24 HR) Succ 25 MG TAB.ER.24H PO SCH ×2 (07:57→09:35)
[2018-10-02] MEDS: Piperacillin/Tazobactam 3.375 GM in 0.9 % Sodium Chloride Mini Bag 100 ML IVPB SCH ×2 (07:58→16:12)
[2018-10-02] MEDS ORDERED: Insulin DETEMIR 100 UNIT/ML X5UNITS SQ SCH ×3 (09:30→21:00)
[2018-10-02] MEDS: Ondansetron 4 MG/2 ML VIAL IVP PRN (09:42)
--- NOTE | 2018-10-02 09:56 | Electrocardiograph Report ---
[address] [address] Test Date: 2018-09-30 Pat Name: Demetrius Vick Department: 110 Room: [facility] Gender: M Vamp Throater: : 1960 Requested By: Taniya San Order Number: [id number] Reading MD: Minh Menjivar Measurements Intervals [place] Rate: 107 P: 81 HI: 136 QRS: 80 QRSD: 94 T: 22 QT: 383 QTc: 445 Interpretive Statements SINUS TACHYCARDIA NONSPECIFIC ST & T-WAVE ABNORMALITY Electronically Signed On 10-02-2018 9:54:50 EDT by Minh Menjivar
--- NOTE | 2018-10-02 10:25 | Internal Med Progress Note ---
Hospitalist Progress Note - Encounter Date of Encounter: 10/02/18 Time of Encounter: 11:24 - Subjective Interval History: No acute event overnight. Reviewed the vitals oxygen saturation in high 90s on 2 L oxygen by nasal cannula. Review the lab with low potassium. Patient denies fever or chills vomiting headache dizziness chest pain shortness of breath abdominal pain diarrhea in a patient complained of nausea therefore refusing to eat. His anion gap is closed but it still insulin drip is running. - Exam Vitals: Temp Pulse Resp BP Pulse Ox 99.9 F H 93 18 146/97 94 10/02/18 06:55 10/02/18 06:55 10/02/18 06:55 10/02/18 06:55 10/02/18 06:55 Exam: GENERAL: No acute distress. Alert awake oriented 3. Not very much communicative. Slow speech and responds HEENT: Atraumatic and normocephalic. CARDIOVASCULAR: Regular rate and rhythm. S1 and S2 present. No murmurs, gallops, or rubs. RESPIRATORY: Decreased breath sound bilaterally GASTROINTESTINAL: Abdomen is soft, nontender, nondistended. No guarding or rebound EXTREMITIES: No clubbing, cyanosis, or edema present in bilateral lower extremities. SKIN: Warm, dry, and intact. NEUROLOGIC: No apparent focal deficits. Motor 5 x 5 in all 4 extremity. Cranial nerves II-12 intact - Summary of Assessment and Plan Summary of Assessment and Plan: Per H&P: ""Mr. Vick is a 58 year old male with a history of asthma, CAD, diabetes, hypertension, renal disease, hypercholesterolemia, and myocardial infarction. Recent medical history is significant for hospitalization at this facility on 09/19/2018 for management of DKA and NSTEMI, with discharge on 2018. He arrived at [facility] as a transfer from [facility], where he presented for evaluation of nausea and vomiting. Patient was found to be in DKA, with glucose >700. Laboratory studies were also significant for WBC 28, troponin 0.67, and lactic acid 6.9. Patient was started on an insulin gtt and fluid hydration per DKA protocol. Patient was seen and evaluated shortly after arrival to this facility. At that time, he was somewhat uncooperative with exam, providing minimal response to questions. He voices significant nausea, but denies any abdominal pain, chest pain, shortness of breath, or other complaints at this time."" (1) DKA (diabetic ketoacidoses), resolving. Anion gap is closed. Patient is is still nothing by mouth due to nausea. Antiemetic given and encouraged to take liquid diet. Long-acting Levemir 10 units twice a day started patient takes 20 units of Levemir in the night. Will restart to wean off insulin drip and medium sliding started. Continue Accu-Chek. Diabetic diet. Suspect secondary to pneumonia. Medication non-adherence has been suspected in the past, but patient reports not missing basal insulin, his stated dose and administration corroborates with whats in the chart Hemoglobin A1c was noted to be elevated at 9.2 on 09/19/2018. (2) NSTEMI (non-ST elevated myocardial infarction)- Troponin peak 17. Continue heparin drip. Cardiology on board and plan for heart catheterization once recover from acute illness. - Echo: 65-70%, left pleural effusion-will repeat chest x-ray and consult manager content if needed - Patient could not take aspirin and metoprolol due to nausea, counseled and he will try today (3) HCAP/sepsis - Patient reported chills, rigors, cough with brown sputum, symptoms similar to prior pneumonia and sepsis before admission. Initial CXR unremarkable at [facility] likely due to volume depletion, and repeat CXR here showed new basilar opacities. Recently treated for community acquired pneumonia with doxycycline and ceftriaxone around 09/25/18, so this could be HCAP, possibly Abx failure as he never completely recovered from last episode. Trending down white count and now normal. Continue broader spectrum antibiotic for now and will restart to de-escalate based on clinical response Cont Zosyn/vancomycin (09/30 PM - current)-MRSA nasal swab ordered Chest x-ray- MPRESSION: 1. Right CVC tip in the distal superior vena cava. No pneumothorax. 2. New mild medial bibasilar opacities which may represent atelectasis versus developing pneumonia. (4) Lactic acidosis, resolved - Unclear etiology, secondary to DKA versus underlying infectious process. Initial lactic acid at outside facility was elevated at 6.9; repeat obtained after arrival at [facility] was WNL at 1.3. - IV fluid and antibiotic. (5) SENTHIL (acute kidney injury)- Improved (6) Urinary retention 09/30/18 with 700 ml retained - Improved creatinine. Continue Iqbal catheter with a strict I&O's. Will give void trial. - Avoid nephrotoxins and renally dose medications as appropriate. (7) RUE basilic and cephalic vein supeficial thrombosis - Warm compresses (8) DVT prophylaxis - Heparin gtt, switch to SubQa after 48 hours Electrolyte imbalance replacement and monitoring- Specimen more than 35 minute inpatient care and communication with consultants,, nursing staff and patient. Reviewed the securities consultant notes - Time Spent with Patient Total time spent is greater than 50% in coordination of care (as documented) at patient's floor/unit and/or counseling patient: Greater than 35 minutes Plan of Care Discussed with: patient Internal Medicine: Result - Labs CBC & Chem 7: 10/02/18 03:50 10/02/18 03:50 Labs: Short CBC 10/02/18 Range/Units 03:50 WBC 8.6 (4.3-11.1) K/mcL Hgb 9.8 L (12.9-16.9) g/dL Hct 30.1 L (37.5-50.1) % Plt Count 198 (140-400) K/mcL Neutrophils # 5.9 (1.6-8.9) K/mcL BMP 10/01/18 10/02/18 10:40 03:50 Sodium 145 142 Potassium 3.3 L 3.7 Chloride 114 H 111 H Carbon Dioxide 24 23 BUN 14 9 Creatinine 1.48 H 1.23 Glucose 93 175 H Calcium 7.6 L 7.7 L Cardiac Enzymes 10/01/18 Range/Units 23:10 Troponin I 2.77 H* (< 0.04) ng/mL Liver Function 10/02/18 Range/Units 03:50 Total Bilirubin 0.7 (0.3-1.0) mg/dL AST 19 (13-39) Units/L ALT 12 (7-52) Units/L Alkaline Phosphatase 85 (34-104) Units/L Albumin 2.8 L (3.5-5.7) g/dL - ABG Interpretation ABG results: PT/INR, D-dimer PT 12.1 Seconds (9.4-12.1) 10/01/18 04:25 Consult Discharge Plan - Plan Referrals: Darien Santiago MD [Primary Care Provider] - 10/11/18 9:45 am
--- NOTE | 2018-10-02 10:25 | Electrocardiograph Report ---
[place] [id number] Test Date: 2018-10-01 Pat Name: Demetrius Vick Department: 110 Room: [facility] Gender: M Neon Glass Blower: : 1960 Requested By: Taniya San Order Number: [id number] Reading MD: Minh Menjivar Measurements Intervals [place] Rate: 93 P: 67 IN: 147 QRS: 83 QRSD: 95 T: 14 QT: 377 QTc: 427 Interpretive Statements SINUS RHYTHM NONSPECIFIC T-WAVE ABNORMALITY Electronically Signed On 10-02-2018 10:23:48 EDT by Minh Menjivar
[2018-10-02] MEDS ORDERED: Dextrose Gel 15 GM/37.5 ML TUBE PO PRN ×2 (11:11)
[2018-10-02] MEDS ORDERED: D5% in Water 1,000 ML IVC PRN (11:11)
[2018-10-02] MEDS ORDERED: *HR* Dextrose 50 % in Water (Syg) 50 ML SYRINGE IVP PRN (11:11)
[2018-10-02 11:12] LABS: Heparin anti-factor XA UFH 0.37 IU/mL (0.30-0.70); INR 1.1; Prothrombin Time 12.1 Seconds (9.4-12.1)
[2018-10-02] MEDS: Insulin LISPRO 300 UNITS/3 ML VIAL SQ SCH ×3 (11:19→21:45)
--- NOTE | 2018-10-02 11:20 | Cardiology Progress Note ---
Date of Encounter: 10/02/18 Time of Encounter: 09:45 Assessment and Plan (1) Leukocytosis Current Visit: Yes Status: Acute Per cardiology: -WBC elevated, lactic acid elevated, tachycardic. -Blood cultures pending. -Temp 100.2. -Reports fever, chills. -PNA noted. -Management per primary service. Qualifiers: Leukocytosis type: unspecified Qualified Code(s): D72.829 - Elevated white blood cell count, unspecified (2) NSTEMI (non-ST elevated myocardial infarction) Current Visit: Yes Status: Acute Per cardiology: -NSTEMI, with peak troponin 17.23, now downtrending. -Reports some atypical, plueritic chest pain. Denies angina. -ECG with ST, non-specific ST and T wave abnormalities noted. -ON asa, statin, BB heparin drip. -TTE 09/2018 with LVEF preserved, no wall motion abnromalities. -Repeat limited TTE with LVEF 65-70%, no wall motion abnormalities noted. -LHC [facility] [place] with moderate CAD. -Discussed with , patient has been on heparin drip for 48 hours, hemoglobin down trending. Will stop heparin drip. Will start plavix. -Plan for LHC when medically stable, prior to discharge. No urgent need for LHC at this time. (3) SENTHIL (acute kidney injury) Current Visit: Yes Status: Acute Per cardiology: -SENTHIL noted, creatinine 2.6 Vani. -Improving. -Management per primary service. (4) DKA (diabetic ketoacidoses) Current Visit: Yes Status: Acute Per cardiology: -DKA noted. -Management per primary service. Qualifiers: Diabetes mellitus type: type 2 Diabetes mellitus complication detail: without coma Qualified Code(s): E11.10 - Type 2 diabetes mellitus with ke toacidosis without coma (5) Anemia Current Visit: Yes Status: Acute Per cardiology: -Hemoglobin 9.6. -Baseline hemoglobin 11-13s. -Reports stools have been "dark" -Will check Stool OB. -May need GI evaluation prior to LHC. Qualifiers: Anemia type: unspecified type Qualified Code(s): D64.9 - Anemia, unspecified Discussion w patient/family: The assessment and plan as outlined above was discussed with the patient who expressed understanding and agreement. All questions were answered. Thank you for involving us in the care of your patient. Please call with any questions. Discussed and reviewed with . Subjective Principal diagnosis: Pneumonia, DKA, SENTHIL, NSTEMI Interval history: Patient reports fever, chills. States he feels terrible today. Reports some atypical, pleuritic chest pain. Concerned about not being able to eat, hold anythin down. Objective Vital Signs, Last 4 Hours Temp Pulse Resp BP Pulse Ox 10/02/18 11:14 99.4 F 86 16 153/93 94 General: Conversant, No Apparent Distress HEENT: Atraumatic, Normocephaly, Mucus Membranes Moist Neck: No JVD, Normal carotid pulses Cardiac: Reg Rate and Rhythm, Normal S1 and S2, No Murmur Lungs: Other (Lung sounds diminished throughout. ) Neuro: Alert and responsive, No focal deficits noted Abdomen: Soft, Non-Tender Skin: No rashes noted on visualized skin Musculoskeletal: No Chest Wall Tenderness Extremities: No Clubbing, No Cyanosis, No Edema, Normal Pulses Results 10/02/18 03:50 10/02/18 03:50 Lab Results Active Medications Aspirin (Aspirin) 81 mg PO DAILY [facility] Stop: 04/02/19 09:01 Last Admin: 10/02/18 09:36 Dose: 81 mg Documented by: Atorvastatin Calcium (Lipitor) 80 mg PO HS [facility] Stop: 04/01/19 09:16 Last Admin: 10/01/18 19:04 Dose: Not Given Documented by: Clopidogrel Bisulfate (Plavix) 75 mg PO DAILY [facility] Stop: 04/03/19 11:31 Dextrose/Water (Dextrose 50% (Syg)) 25 ml IVP [id number] PRN PRN Reason: Hypoglycemia Stop: 04/01/19 01:44 Last Admin: 10/02/18 00:07 Dose: 25 ml Documented by: Dextrose/Water (Dextrose 50% (Syg)) 25 ml IVP AD PRN PRN Reason: Hypoglycemia Stop: 04/03/19 11:12 Famotidine (Pepcid) 20 mg PO BIDAC [facility]; Protocol Stop: 04/03/19 16:31 Glucagon (Glucagen) 1 mg IM ONCE PRN PRN Reason: Hypoglycemia Stop: 04/03/19 11:12 Glucose (Gluctose) 15 gm PO ONCE PRN PRN Reason: Hypoglycemia Stop: 04/03/19 11:12 Glucose (Gluctose) 30 gm PO ONCE PRN PRN Reason: Hypoglycemia Stop: 04/03/19 11:12 Heparin Sodium (Porcine) (Heparin) 5,000 unit SQ Q12HCO [facility] Stop: 04/03/19 18:01 Dextrose/Sodium Chloride (D5% And 0.45% Nacl 1000 Ml Bag) 1,000 mls @ 250 mls/hr IVC .Q4H PRN PRN Reason: See comments Stop: 04/01/19 01:44 Calcium Gluconate 1,000 mg/ (Sodium Chloride) 110 mls @ 220 mls/hr IVPB Q6HR PRN PRN Reason: Hypocalcemia Stop: 04/01/19 02:58 Magnesium Sulfate 2 gm/ Sodium (Chloride) 104 mls @ 52 mls/hr IVPB Q6H PRN PRN Reason: hypomagnesemia Stop: 04/01/19 02:58 Last Admin: 10/02/18 07:58 Dose: 52 mls/hr Documented by: Potassium Phosphate 44 meq/ (Sodium Chloride) 260 mls @ 40 mls/hr IVPB Q10H PRN PRN Reason: Phosphate less than 3 Stop: 04/01/19 02:58 Last Infusion: 10/01/18 07:05 Dose: Infused Documented by: Piperacillin Sod/Tazobactam (Sod 3.375 gm/ Sodium Chloride) 100 mls @ 25 mls/hr IVPB Q8HR [facility] Stop: 04/01/19 16:01 Last Admin: 10/02/18 07:58 Dose: 25 mls/hr Documented by: Vancomycin HCl 1,500 mg/ (Sodium Chloride) 250 mls @ 166.667 mls/hr IVPB Q12H [facility] Stop: 04/03/19 18:01 Dextrose (Dextrose 5%) 1,000 mls @ 100 mls/hr IVC .Q10H PRN PRN Reason: HYPOGLYCEMIA Stop: 04/03/19 11:12 Insulin Detemir (Levemir) 10 unit SQ BID [facility] Stop: 04/03/19 21:01 Insulin Human Lispro (Humalog) 0 units SQ TIDAC [facility]; Protocol Stop: 04/03/19 11:31 Insulin Human Lispro (Humalog) 0 units SQ HS [facility]; Protocol Stop: 04/03/19 21:01 Metoclopramide HCl (Reglan) 10 mg IVP Q6HR [facility] Stop: 04/02/19 00:01 Last Admin: 10/02/18 06:12 Dose: 10 mg Documented by: Metoprolol Succinate (Toprol Xl) 25 mg PO DAILY [facility] Stop: 04/01/19 09:31 Last Admin: 10/02/18 09:35 Dose: 25 mg Documented by: Naloxone HCl (Narcan) 0.4 mg IVP Q2MPRN PRN PRN Reason: SEE COMMENTS Stop: 04/01/19 03:26 Ondansetron HCl (Zofran) 4 mg IVP Q6HR PRN; Protocol PRN Reason: Nausea And Vomiting Stop: 04/01/19 01:47 Last Admin: 10/02/18 09:42 Dose: 4 mg Documented by: Pantoprazole Sodium (Protonix) 40 mg IVP 0630 [facility] Stop: 04/02/19 23:16 Last Admin: 10/02/18 06:13 Dose: 40 mg Documented by: Sucralfate (Carafate) 1 gm PO TIDAC [facility] Stop: 04/03/19 11:3 Laboratory Tests 09/30/18 10/01/18 10/02/18 02:11 04:25 03:50 Hgb 11.0 L 9.8 L Creatinine 1.55 H 10/02/18 03:50 Hgb Creatinine 1.23 - Imaging and Cardiology Chest Xray: report reviewed Echo: report reviewed - EKG Interpretation EKG results cardiology: other (Telemetry reviewed with average HR previous 12 hours noted to be 90, SR. PVCs and PACs noted.) Consult Discharge Plan - Plan Referrals: Darien Santiago MD [Primary Care Provider] - 10/11/18 9:45 am
[2018-10-02] MEDS: Famotidine 20 MG TABLET PO SCH (16:13)
[2018-10-02] MEDS: *HR* Heparin 5,000 UNIT/ML VIAL SQ SCH (17:03)
[2018-10-02] MEDS: 0.9 % Sodium Chloride 1,000 ML IVC SCH (18:59)
[2018-10-02] MEDS: Insulin DETEMIR 100 UNIT/ML X5UNITS SQ SCH (21:45)
[2018-10-03] MEDS: Piperacillin/Tazobactam 3.375 GM in 0.9 % Sodium Chloride Mini Bag 100 ML IVPB SCH ×3 (01:12→16:40)
[2018-10-03] MEDS: Metoclopramide 10 MG/2 ML VIAL IVP SCH ×4 (01:12→16:40)
[2018-10-03] MEDS ORDERED: *HR* Metoprolol 5 MG/5 ML VIAL IVP ONE ×2 (01:13→11:04)
[2018-10-03 04:04] LABS: Basophils % 0.4 %; Eosinophils # 0.2 K/mcL (0.0-0.6); Hematocrit 32.6 % (37.5-50.1); Hemoglobin 10.7 g/dL (12.9-16.9); Immature Granulocytes % 0.3 % (0-4); Lymphocytes # 1.7 K/mcL (0.6-4.6); Lymphocytes % 18.4 %; Mean Corpuscular HGB Conc 32.8 g/dL (31.6-35.5); Mean Corpuscular Hemoglobin 28.6 pg (28.0-33.3); Mean Corpuscular Volume 87.2 fL (83.0-100.0); Mean Platelet Volume 10.9 fL (9.4-12.4); Monocytes # 0.7 K/mcL (0.0-1.3); Monocytes % 7.8 %; Neutrophils # 6.4 K/mcL (1.6-8.9); Platelet Count 188 K/mcL (140-400); Red Blood Count 3.74 M/mcL (4.19-5.50); Red Cell Distribution Width 13.9 % (11.5-14.5); Segmented Neutrophils % 71.1 %
[2018-10-03 04:18] LABS: BUN/Creatinine Ratio 9 (6-26); Blood Urea Nitrogen 9 mg/dL (6-20); Calcium 8.1 mg/dL (8.6-10.3); Carbon Dioxide 27 mEq/L (23-29); Chloride 103 mEq/L (98-107); Glucose 171 mg/dL (70-105); Magnesium 2.1 mg/dL (1.6-2.6); Osmolality,Calculated 291 (280-300); Potassium 3.9 mEq/L (3.5-5.1); Sodium 139 mEq/L (136-145); eGFR For Non-African Americans > 60 (> 60)
[2018-10-03] MEDS: 0.9 % Sodium Chloride 1,000 ML IVC SCH ×3 (05:16→20:01)
[2018-10-03] MEDS: Pantoprazole 40 MG VIAL IVP SCH (05:17)
[2018-10-03] MEDS: *HR* Heparin 5,000 UNIT/ML VIAL SQ SCH ×2 (05:35→16:40)
[2018-10-03] MEDS: Insulin LISPRO 300 UNITS/3 ML VIAL SQ SCH ×4 (08:18→20:12)
[2018-10-03] MEDS: Famotidine 20 MG TABLET PO SCH ×2 (08:25→16:30)
[2018-10-03] MEDS: Insulin DETEMIR 100 UNIT/ML X5UNITS SQ SCH ×3 (08:25→22:26)
[2018-10-03] MEDS: Aspirin 81 MG TAB.CHEW PO SCH (08:50)
[2018-10-03] MEDS: amLODIPine 5 MG TABLET PO SCH (08:51)
[2018-10-03] MEDS: Metoprolol XL (24 HR) Succ 50 MG TAB.ER.24H PO SCH (08:51)
[2018-10-03] MEDS ORDERED: *HR* Promethazine 25 MG/ML VIAL IVP PRN (08:54)
[2018-10-03] MEDS ORDERED: *HR* Labetalol 20 MG/4 ML SYRINGE IVP ONE ×2 (08:59→09:01)
[2018-10-03] MEDS ORDERED: NON-FORMULARY MEDICATION 1 EACH EACH (Atorvastatin Calcium [Lipitor] 20 MG) PO SCH (09:00)
[2018-10-03] MEDS: *HR* Metoprolol 5 MG/5 ML VIAL IVP SCH ×4 (11:13→20:01)
--- NOTE | 2018-10-03 11:16 | Internal Med Progress Note ---
Hospitalist Progress Note - Encounter Date of Encounter: 10/03/18 Time of Encounter: 11:55 - Subjective Interval History: No acute event overnight but is still has persistent nausea. He feels slight better on Reglan. Does not want to eat. Review the blood pressure-high. Review of the labs. Denies fever or chills headache vomiting dizziness chest pain short of breath abdominal pain and diarrhea. - Exam Vitals: Temp Pulse Resp BP Pulse Ox 98.5 F 91 16 202/106 97 10/03/18 11:03 10/03/18 11:03 10/03/18 11:03 10/03/18 11:03 10/03/18 11:03 Exam: GENERAL: No acute distress. Alert awake oriented 3. Son at bedside HEENT: Atraumatic and normocephalic. CARDIOVASCULAR: Regular rate and rhythm. S1 and S2 present. No murmurs, gallops, or rubs. RESPIRATORY: Decreased breath sound bilaterally GASTROINTESTINAL: Abdomen is soft, nontender, nondistended. No guarding or rebound EXTREMITIES: No clubbing, cyanosis, or edema present in bilateral lower extr emities. SKIN: Warm, dry, and intact. NEUROLOGIC: No apparent focal deficits. Motor 5 x 5 in all 4 extremity. Cranial nerves II-12 intact Psych-limited communication. Flat affect. Denies suicidal or homicidal thoughts or plan - Summary of Assessment and Plan Summary of Assessment and Plan: Per H&P: ""Mr. Vick is a 58 year old male with a history of asthma, CAD, diabetes, hypertension, renal disease, hypercholesterolemia, and myocardial infarction. Recent medical history is significant for hospitalization at this facility on 09/19/2018 for management of DKA and NSTEMI, with discharge on 09/25/2018. He arrived at [facility] as a transfer from [facility], where he presented for evaluation of nausea and vomiting. Patient was found to be in DKA, with glucose >700. Laboratory studies were also significant for WBC 28, troponin 0.67, and lactic acid 6.9. Patient was started on an insulin gtt and fluid hydration per DKA protocol. Patient was seen and evaluated shortly after arrival to this facility. At that time, he was somewhat uncooperative with exam, providing minimal response to questions. He voices significant nausea, but denies any abdominal pain, chest pain, shortness of breath, or other complaints at this time."" Persistent nausea-for few weeks and has seen GI specialist. patient had recent upper GI endoscope on 09/22/2018 with finding of nonbleeding the symphyseal ulcer, gastritis, gastroparesis secondary to diabetes mellitus, normal ampulla first and second portion of duodenum and recommended PPI and Carafate. I made adjustment in antiemetic medicine with [id number] Zofran when necessary, Reglan and added Phenergan. Consulted GI specialist. Will also give IV antihypertensive medicine as he is not willing to take by mouth medicine today. Hypertension- high blood pressure. Patient is refusing to take oral medication. IV metoprolol 5 mg 4 hours with hold parameter scheduled, hydralazine 10 mg every 4 hours when necessary. If is still high then will consider clonidine patch. (1) DKA (diabetic ketoacidoses), improved Anion gap is closed. Clear to advance diet as tolerated but patient has been elected and due to persistent nausea. Long-acting Levemir 10 units twice a day started patient takes 20 units of Levemir in the night. Stopped insulin drip and medium sliding started. Continue Accu-Chek. Diabetic diet. Suspect secondary to pneumonia. Medication non-adherence has been suspected in the past, but patient reports not missing basal insulin, his stated dose and administration corroborates with whats in the chart Hemoglobin A1c was noted to be elevated at 9.2 on 09/19/2018. (2) NSTEMI (non-ST elevated myocardial infarction)- Troponin peak 17. Continue heparin drip. Cardiology on board and plan for heart catheterization once recover from acute illness. as per cardio note- Echo: 65-70%, left pleural effusion-will repeat chest x-ray and consult nursery teacher if needed - Continue aspirin beta [place], nitroglycerin, statin. [employer] on board. -TTE 09/2018 with LVEF preserved, no wall motion abnromalities. -Repeat limited TTE with LVEF 65-70%, no wall motion abnormalities noted. -LHC [facility] [place] with moderate CAD. -Plan for LHC when medically stable, prior to discharge. No urgent need for LHC at this time. Counselled patient about the importance of taking aspirin and Plavix-he agreed to take (3) HCAP/sepsis - Patient reported chills, rigors, cough with brown sputum, symptoms similar to prior pneumonia and sepsis before admission. Initial CXR unremarkable at [facility] likely due to volume depletion, and repeat CXR here showed new basilar opacities. Recently treated for community acquired pneumonia with doxycycline and ceftriaxone around 09/25/18, so this could be HCAP, possibly Abx failure as he never completely recovered from last episode. Trending down white count and now normal. Continue broader spectrum antibiotic for now and will restart to de-escalate based on clinical response Cont Zosyn/vancomycin (09/30 PM - current)-MRSA nasal swab positive Chest x-ray- MPRESSION: 1. Right CVC tip in the distal superior vena cava. No pneumothorax. 2. New mild medial bibasilar opacities which may represent atelectasis versus developing pneumonia. (4) Lactic acidosis, resolved - Unclear etiology, secondary to DKA versus underlying infectious process. Initial lactic acid at outside facility was elevated at 6.9; repeat obtained after arrival at [facility] was WNL at 1.3. - IV fluid and antibiotic. (5) SENTHIL (acute kidney injury)- Improved (6) Urinary retention 09/30/18 with 700 ml retained - Improved creatinine. Continue Iqbal catheter with a strict I&O's. Will give void trial. - Avoid nephrotoxins and renally dose medications as appropriate. (7) RUE basilic and cephalic vein supeficial thrombosis - Warm compresses (8) DVT prophylaxis - Heparin gtt, switch to SubQa after 48 hours Electrolyte imbalance replacement and monitoring- Specimen more than 35 minute inpatient care and communication with consultants,, nursing staff and patient. Reviewed the men's custom hair piece consultant notes - Time Spent with Patient Total time spent is greater than 50% in coordination of care (as documented) at patient's floor/unit and/or counseling patient: Greater than 35 minutes Plan of Care Discussed with: patient Internal Medicine: Result - Labs CBC & Chem 7: 10/03/18 03:41 10/03/18 03:41 Labs: Short CBC 10/03/18 Range/Units 03:41 WBC 9.1 (4.3-11.1) K/mcL Hgb 10.7 L (12.9-16.9) g/dL Hct 32.6 L (37.5-50.1) % Plt Count 188 (140-400) K/mcL Neutrophils # 6.4 (1.6-8.9) K/mcL BMP 10/03/18 03:41 Sodium 139 Potassium 3.9 Chloride 103 Carbon Dioxide 27 BUN 9 Creatinine 0.95 Glucose 171 H Calcium 8.1 L - ABG Interpretation ABG results: PT/INR, D-dimer PT 12.1 Seconds (9.4-12.1) 10/02/18 10:41 - Impressions Impressions Chest X-Ray 10/02/18 15:50 IMPRESSION: Small left pleural effusion with patchy left basilar opacity suggesting possible pneumonia. Slight improvement compared to prior examination. D/ / Eris Farrell MD / Eris Farrell MD Interpreting Provider: Eris Farrell MD Consult Discharge Plan - Plan Referrals: Darien Santiago MD [Primary Care Provider] - 10/11/18 9:45 am
--- NOTE | 2018-10-03 14:05 | Cardiology Progress Note ---
Date of Encounter: 10/03/18 Time of Encounter: 13:00 Assessment and Plan (1) Leukocytosis Current Visit: Yes Status: Acute Per cardiology: -WBC elevated, lactic acid elevated, tachycardic. -Blood cultures pending. -Temp 100.2. -Reports fever, chills. -PNA noted. -Management per primary service. Qualifiers: Leukocytosis type: unspecified Qualified Code(s): D72.829 - Elevated white blood cell count, unspecified (2) NSTEMI (non-ST elevated myocardial infarction) Current Visit: Yes Status: Acute Per cardiology: -NSTEMI, with peak troponin 17.23, now downtrending. -Reports some atypical, plueritic chest pain. Denies angina. -ECG with ST, non-specific ST and T wave abnormalities noted. -ON asa, statin, BB, plavix. -TTE 09/2018 with LVEF preserved, no wall motion abnromalities. -Repeat limited TTE with LVEF 65-70%, no wall motion abnormalities noted. -LHC 2008 [facility] with moderate CAD. -Plan for LHC when medically stable, prior to discharge. No urgent need for LHC at this time. Of note, still coughing, unable to take oral medications due to nausea/vomiting, anemia stool OB pending. May need GI eval prior to LHC. -Of note, hypertensive today, however patient states unable to take oral meds. IV meds were added by primary service. -Will continue to monitor. (3) SENTHIL (acute kidney injury) Current Visit: Yes Status: Acute Per cardiology: -SENTHIL noted, creatinine 2.6 Vani. -Improving. -Management per primary service. (4) DKA (diabetic ketoacidoses) Current Visit: Yes Status: Acute Per cardiology: -DKA noted. -Management per primary service. Qualifiers: Diabetes mellitus type: type 2 Diabetes mellitus complication detail: without coma Qualified Code(s): E11.10 - Type 2 diabetes mellitus with ketoacidosis without coma (5) Anemia Current Visit: Yes Status: Acute Per cardiology: -Hemoglobin 9.6. -Baseline hemoglobin 11-13s. -Reports stools have been "dark" -Will check Stool OB. -May need GI evaluation prior to LHC. Qualifiers: Anemia type: unspecified type Qualified Code(s): D64.9 - Anemia, unspecified Discussion w patient/family: The assessment and plan as outlined above was discussed with the patient who expressed understanding and agreement. All questions were answered. Thank you for involving us in the care of your patient. Please call with any questions. Discussed and reviewed with . Subjective Principal diagnosis: Pneumonia, DKA, SENTHIL, NSTEMI Interval history: Patient states he feels terrible today. Reports some atypical, pleuritic chest pain. Concerned about not being able to eat, hold anything down. States he could not even take his medications last night without throwing up. Objective Vital Signs, Last 4 Hours Temp Pulse Resp BP Pulse Ox 10/03/18 12:34 107 149/84 10/03/18 11:54 168/96 10/03/18 11:46 87 182/97 10/03/18 11:03 98.5 F 91 16 202/106 97 General: Conversant, No Apparent Distress HEENT: Atraumatic, Normocephaly, Mucus Membranes Moist Neck: No JVD, Normal carotid pulses Cardiac: Reg Rate and Rhythm, Normal S1 and S2, No Murmur Lungs: Other (Lung sounds diminished throughout. ) Neuro: Alert and responsive, No focal deficits noted Abdomen: Soft, Non-Tender Skin: No rashes noted on visualized skin Musculoskeletal: No Chest Wall Tenderness Extremities: No Clubbing, No Cyanosis, No Edema, Normal Pulses Results 10/03/18 03:41 10/03/18 03:41 Lab Results Impressions Chest X-Ray 10/02/18 15:50 IMPRESSION: Small left pleural effusion with patchy left basilar opacity suggesting possible pneumonia. Slight improvement compared to prior examination. D/ / Eris Farrell MD / Eris Farrell MD Interpreting Provider: Eris Farrell MD Active Medications Amlodipine Besylate (Norvasc) 5 mg PO DAILY [facility]; Protocol Stop: 04/04/19 09:01 Last Admin: 10/03/18 08:51 Dose: Not Given Documented by: Aspirin (Aspirin) 81 mg PO DAILY [facility] Stop: 04/02/19 09:01 Last Admin: 10/03/18 08:50 Dose: Not Given Documented by: Atorvastatin Calcium (Lipitor) 80 mg PO HS [facility] Stop: 04/01/19 09:16 Last Admin: 10/02/18 21:37 Dose: 80 mg Documented by: Clopidogrel Bisulfate (Plavix) 75 mg PO DAILY [facility] Stop: 04/03/19 11:31 Last Admin: 10/03/18 08:50 Dose: Not Given Documented by: Dextrose/Water (Dextrose 50% (Syg)) 25 ml IVP [id number] PRN PRN Reason: Hypoglycemia Stop: 04/01/19 01:44 Last Admin: 10/02/18 00:07 Dose: 25 ml Documented by: Dextrose/Water (Dextrose 50% (Syg)) 25 ml IVP AD PRN PRN Reason: Hypoglycemia Stop: 04/03/19 11:12 Famotidine (Pepcid) 20 mg PO BIDAC [facility]; Protocol Stop: 04/03/19 16:31 Last Admin: 10/03/18 08:25 Dose: Not Given Documented by: Glucagon (Glucagen) 1 mg IM ONCE PRN PRN Reason: Hypoglycemia Stop: 04/03/19 11:12 Glucose (Gluctose) 15 gm PO ONCE PRN PRN Reason: Hypoglycemia Stop: 04/03/19 11:12 Glucose (Gluctose) 30 gm PO ONCE PRN PRN Reason: Hypoglycemia Stop: 04/03/19 11:12 Heparin Sodium (Porcine) (Heparin) 5,000 unit SQ Q12HCO [facility] Stop: 04/03/19 18:01 Last Admin: 10/03/18 05:35 Dose: 5,000 unit Documented by: Hydralazine HCl (Hydralazine) 10 mg IVP Q4H PRN PRN Reason: Hypertension Stop: 04/03/19 21:56 Last Admin: 10/03/18 11:47 Dose: 10 mg Documented by: Dextrose/Sodium Chloride (D5% And 0.45% Nacl 1000 Ml Bag) 1,000 mls @ 250 mls/hr IVC .Q4H PRN PRN Reason: See comments Stop: 04/01/19 01:44 Calcium Gluconate 1,000 mg/ (Sodium Chloride) 110 mls @ 220 mls/hr IVPB Q6HR PRN PRN Reason: Hypocalcemia Stop: 04/01/19 02:58 Magnesium Sulfate 2 gm/ Sodium (Chloride) 104 mls @ 52 mls/hr IVPB Q6H PRN PRN Reason: hypomagnesemia Stop: 04/01/19 02:58 Last Infusion: 10/02/18 21:36 Dose: Infused Documented by: Potassium Phosphate 44 meq/ (Sodium Chloride) 260 mls @ 40 mls/hr IVPB Q10H PRN PRN Reason: Phosphate less than 3 Stop: 04/01/19 02:58 Last Infusion: 10/01/18 07:05 Dose: Infused Documented by: Piperacillin Sod/Tazobactam (Sod 3.375 gm/ Sodium Chloride) 100 mls @ 25 mls/hr IVPB Q8HR [facility] Stop: 04/01/19 16:01 Last Admin: 10/03/18 08:25 Dose: 25 mls/hr Documented by: Dextrose (Dextrose 5%) 1,000 mls @ 100 mls/hr IVC .Q10H PRN PRN Reason: HYPOGLYCEMIA Stop: 04/03/19 11:12 Sodium Chloride (0.9 % Sodium Chloride) 1,000 mls @ 75 mls/hr IVC .[id number] [facility] Stop: 04/04/19 07:43 Last Admin: 10/03/18 08:24 Dose: 75 mls/hr Documented by: Vancomycin HCl 1,250 mg/ (Sodium Chloride) 250 mls @ 166.67 mls/hr IVPB Q12H [facility] Stop: 04/04/19 18:01 Insulin Detemir (Levemir) 10 unit SQ BID [facility] Stop: 04/03/19 21:01 Last Admin: 10/03/18 11:16 Dose: 10 unit Documented by: Insulin Human Lispro (Humalog) 0 units SQ TIDAC [facility]; Protocol Stop: 04/03/19 11:31 Last Admin: 10/03/18 11:13 Dose: 8 unit Documented by: Insulin Human Lispro (Humalog) 0 units SQ [facility]; Protocol Stop: 04/03/19 21:01 Last Admin: 10/02/18 21:45 Dose: 3 units Documented by: Lisinopril (Zestril) 10 mg PO DAILY [facility]; Protocol Stop: 04/04/19 09:01 Last Admin: 10/03/18 08:50 Dose: Not Given Documented by: Metoclopramide HCl (Reglan) 10 mg IVP Q6HR [facility] Stop: 04/02/19 00:01 Last Admin: 10/03/18 11:13 Dose: 10 mg Documented by: Metoprolol Succinate (Toprol Xl) 50 mg PO DAILY [facility] Stop: 04/04/19 09:01 Last Admin: 10/03/18 08:51 Dose: Not Given Documented by: Metoprolol Tartrate (Lopressor) 5 mg IVP Q4HR [facility] Stop: 04/04/19 11:02 Last Admin: 10/03/18 11:24 Dose: Not Given Documented by: Naloxone HCl (Narcan) 0.4 mg IVP Q2MPRN PRN PRN Reason: SEE COMMENTS Stop: 04/01/19 03:26 Ondansetron HCl (Zofran) 4 mg IVP Q6HR PRN; Protocol PRN Reason: Nausea And Vomiting Stop: 04/01/19 01:47 Last Admin: 10/02/18 09:42 Dose: 4 mg Documented by: Pantoprazole Sodium (Protonix) 40 mg IVP 0630 [facility] Stop: 04/02/19 23:16 Last Admin: 10/03/18 05:17 Dose: 40 mg Documented by: Promethazine HCl (Phenergan) 12.5 mg IVP Q6HR PRN PRN Reason: Nausea And Vomiting Stop: 04/04/19 08:55 Last Admin: 10/03/18 11:47 Dose: 12.5 mg Documented by: Sucralfate (Carafate) 1 gm PO TIDAC [facility] Stop: 04/03/19 11:31 Last Admin: 10/03/18 10:15 Dose: Not Given Documented by: Laboratory Tests 10/03/18 10/03/18 03:41 03:41 Hgb 10.7 L Creatinine 0.95 - Imaging and Cardiology Chest Xray: report reviewed Echo: report reviewed - EKG Interpretation EKG results cardiology: other (Telemetry reviewed with average HR previous 12 hours noted to be 91, SR. PVCs, PACs noted.) Consult Discharge Plan - Plan Referrals: Darien Santiago MD [Primary Care Provider] - 10/11/18 9:45 am
[2018-10-04] MEDS: Metoclopramide 10 MG/2 ML VIAL IVP SCH ×4 (00:45→16:58)
[2018-10-04] MEDS: *HR* Metoprolol 5 MG/5 ML VIAL IVP SCH ×6 (00:45→20:22)
[2018-10-04] MEDS: Piperacillin/Tazobactam 3.375 GM in 0.9 % Sodium Chloride Mini Bag 100 ML IVPB SCH ×3 (00:46→16:58)
[2018-10-04] MEDS: Pantoprazole 40 MG VIAL IVP SCH (04:57)
[2018-10-04] MEDS: *HR* Heparin 5,000 UNIT/ML VIAL SQ SCH ×2 (04:57→18:57)
[2018-10-04] MEDS: Insulin LISPRO 300 UNITS/3 ML VIAL SQ SCH ×4 (07:37→20:18)
[2018-10-04] MEDS: Aspirin 81 MG TAB.CHEW PO SCH (07:57)
[2018-10-04] MEDS: amLODIPine 5 MG TABLET PO SCH (07:57)
[2018-10-04] MEDS: Famotidine 20 MG TABLET PO SCH ×2 (07:57→17:06)
[2018-10-04] MEDS: Insulin DETEMIR 100 UNIT/ML X5UNITS SQ SCH ×2 (07:58→20:22)
[2018-10-04] MEDS: Metoprolol XL (24 HR) Succ 50 MG TAB.ER.24H PO SCH (07:58)
[2018-10-04 08:31] LABS: Basophils % 0.2 %; Eosinophils # 0.3 K/mcL (0.0-0.6); Eosinophils % 3.3 %; Hematocrit 29.2 % (37.5-50.1); Hemoglobin 9.6 g/dL (12.9-16.9); Immature Granulocytes % 0.1 % (0-4); Lymphocytes # 1.6 K/mcL (0.6-4.6); Lymphocytes % 19.7 %; Mean Corpuscular HGB Conc 32.9 g/dL (31.6-35.5); Mean Corpuscular Hemoglobin 28.2 pg (28.0-33.3); Mean Corpuscular Volume 85.6 fL (83.0-100.0); Mean Platelet Volume 11.2 fL (9.4-12.4); Monocytes # 0.9 K/mcL (0.0-1.3); Monocytes % 11.1 %; Neutrophils # 5.4 K/mcL (1.6-8.9); Platelet Count 174 K/mcL (140-400); Red Blood Count 3.41 M/mcL (4.19-5.50); Red Cell Distribution Width 13.6 % (11.5-14.5); Segmented Neutrophils % 65.6 %
[2018-10-04 08:44] LABS: BUN/Creatinine Ratio 7 (6-26); Blood Urea Nitrogen 8 mg/dL (6-20); Calcium 8.6 mg/dL (8.6-10.3); Carbon Dioxide 29 mEq/L (23-29); Chloride 102 mEq/L (98-107); Glucose 135 mg/dL (70-105); Osmolality,Calculated 290 (280-300); Potassium 3.5 mEq/L (3.5-5.1); Sodium 140 mEq/L (136-145); eGFR For Non-African Americans > 60 (> 60)
--- NOTE | 2018-10-04 11:08 | Gastroenterology Consult Note ---
Date of Encounter: 10/04/18 Time of Encounter: 10:05 - Assessment and plan (1) Anemia Current Visit: Yes Status: Acute Assessment and plan: On admission Hgb 11, dropped to 9.8 on 10/02, and today Hgb 10.7. Fecal occult blood test negative. Continue to monitor CBC and transfuse PRBC as needed. No indication for EGD or colonoscopy at this time. Qualifiers: Anemia type: unspecified type Qualified Code(s): D64.9 - Anemia, unspecified (2) Gastroparesis Current Visit: Yes Status: Acute Assessment and plan: Likely worsening due to uncontrolled blood sugar and diet choices. Continue anti-emetics and Reglan. With gastroparesis recommend: 1. Small frequent meals 2. Avoid fried and fatty foods 3. Chew food well 4. Blenderize food when symptomatic 5. Reduce or avoid high-fiber foods and medications 6. Avoid raw vegetables 7. If you have diabetes, keep blood sugars well controlled 8. Avoid medications that can delay gastric emptying such as narcotics, high- fiber medications, and high-fiber foods. Discussed Reglan side effects that include: "Muscle spasm" type immediate reactions. Within the first week patient may experience: Anxiety/restlessness Insomnia or excessive sleep or fatigue. long-term side effects of Reglan include: Depression Parkinsonism (tremor, rigidity, generalized slowness of movement, postural instability) Tardive dyskinesia (abnormal involuntary movement of the face, mouth and tongue) Endocrine & metabolic effects such as amenorrhea, galactorrhea, gynecomastia, hyperprolactinemia, impotence. (3) NSTEMI (non-ST elevated myocardial infarction) Current Visit: Yes Status: Acute Assessment and plan: Cardiology consulted. - Time Spent With Patient Total time spent is greater than 50% in coordination of care (as documented) at patient's floor/unit and/or counseling patient: GI History of Present Illness - Data of Consult Patient: known to practice within the last 3 years Consult date: 10/04/18 Requesting Physician: Dre García MD - Consult Narrative Reason for consult: Intractable nausea History of present illness: Mr. Vick is a 58 year old male with PMHx of asthma, CAD, DM, HTN, PR, CKD, recent admission for DKA, pneumonia, who presented to [facility] with complaints of abdominal pain and nausea, vomiting. Patient was found to be in DKA, with glucose >700. Laboratory studies were also significant for WBC 28, troponin 0.67, and lactic acid 6.9. Cardiology consulted for NSTEMI, with troponin peak of 17.23. We were consulted to evaluate intractable nausea and vomiting. EGD completed 09/22 with gastroparesis and esophageal ulcers. Patient has been refusing medications since yesterday due to nausea. On admission Hgb 1 1, dropped to 9.8 on 10/02, and today Hgb 10.7. Fecal occult blood test negative. Procedures: EGD 09/22/2018 Dr. De La Garza: Many linear and superficial esophageal ulcers might gastritis, gastroparesis. NSAIDs: None Anticoagulation: None Past Med Surg Social Fam HX - Past Medical History Medical history: asthma, coronary artery disease, diabetes, hypertension, myocardial infarction, RA, renal disease, other Additional medical history: hypercholesterolemia. chronic renal insufficiency stage III. diabetic neuropathy. diabetic retinopathy. vitamin d deficiency. overweight. riht sided spondyloysis. bronchitis Psychiatric history: no psych history - Past Surgical History Surgical History: cataract, cholecystectomy, orthopedic, other, other Additional surgical history: rotator cuff repair left. laser treatmet of both eyes. rotator cuff repair right. gallbladder surgery. left elbow surgery sec ondary to arthritis. right elbow surgery secondary to arthritis. heart cath- no stents. L elbow lateral epicondylitis. steroid injection back - Social History Smoking Status: Never smoker Smokeless Tobacco Status: No Alcohol use: none Drug use: none - Gastrointestinal Gastrointestinal: Present: as per HPI - Constitutional Constitutional: as per HPI - EENT Eyes: as per HPI Ears: Present: as per HPI Nose, mouth and throat: Present: as per HPI - Cardiovascular Cardiovascular ROS: Present: as per HPI - Respiratory Respiratory IM: Present: as per HPI - Genitourinary Genitourinary: Absent: change in color, Urinary frequency - Neurological ROS Neurological GI: Present: as per HPI - Hematologic/Lymphatic Hematologic/Lymphatic pediatric: Present: as per HPI - Musculoskeletal Musculoskeletal ROS GI: Present: as per HPI - Integumentary Integumentary GI: Present: as per HPI - Psychiatric ROS Psychiatric GI: Present: as per HPI - Endocrine Endocrine IM: Present: as per HPI - Constitutional Vitals: Temp Pulse Resp BP Pulse Ox 98.2 F 89 18 182/96 95 10/04/18 07:24 10/04/18 07:24 10/04/18 07:24 10/04/18 07:24 10/04/18 07:24 General appearance: Present: cooperative, A&O X 3, no acute distress, answers questions appropriately - Head Head exam: Present: atraumatic, normocephalic - Eye Eye exam: Present: normal appearance, sclera anicteric - ENT ENT exam: Present: mucous membranes dry - Neck Neck exam general surgery: Present: normal inspection, trachea midline - Respiratory Respiratory exam: Present: decreased breath sounds, CTAB. Absent: rales, rhonchi - Cardiovascular Cardiovascular exam: Present: RRR, +S1, +S2 - GI/Abdominal GI/Abdominal exam: Present: soft, no peritoneal signs. Absent: distended, firm, guarding, tenderness - Rectal Rectal exam: Present: deferred - Extremities Exam Extremities exam: Present: warm - Neurological Exam Neurological exam: Present: no focal deficits - Psychiatric Psychiatric exam: Present: normal affect, normal mood - Skin Skin exam: Present: dry, intact, normal color, warm Results - Labs CBC & Chem 7: 10/04/18 08:13 10/04/18 08:13 Labs: Last Result 10/04/18 10/04/18 03:49 08:13 Calcium 8.6 Stool Occult Blood Negative Entire Visit 10/04/18 08:13 Hgb 9.6 L Hct 29.2 L - ABG ABG results: PT/INR, D-dimer PT 12.1 Seconds (9.4-12.1) 10/02/18 10:41 Consult Discharge Plan - Plan Referrals: Darien Santiago MD [Primary Care Provider] - 10/11/18 9:45 am
--- NOTE | 2018-10-04 11:27 | Cardiology Progress Note ---
Date of Encounter: 10/04/18 Time of Encounter: 10:00 Assessment and Plan (1) NSTEMI (non-ST elevated myocardial infarction) Current Visit: Yes Status: Acute Per cardiology: -NSTEMI, with peak troponin 17.23, now downtrending. -Reports some atypical, plueritic chest pain. Denies angina. -ECG with ST, non-specific ST and T wave abnormalities noted. -ON asa, statin, BB, plavix. -TTE 09/2018 with LVEF preserved, no wall motion abnormalities. -Repeat limited TTE with LVEF 65-70%, no wall motion abnormalities noted. -LHC 2008 [facility] with moderate CAD. -Plan for LHC when medically stable, prior to discharge. No urgent need for LHC at this time. Of note, still coughing, unable to take oral medications due to nausea/vomiting--will need to be able to tolerate po meds prior to LHC -Recent EGD--no active bleeding (09/22/18). -Of note, hypertensive today, however patient states unable to take oral meds. IV meds were added by primary service. -Will continue to monitor, NPO after MN and re-evaluate in AM (2) Leukocytosis Current Visit: Yes Status: Acute Per cardiology: -WBC elevated, lactic acid elevated, tachycardic upon admission, now resolved. -Has been afebrile for 24+hours -Management per primary service. Qualifiers: Leukocytosis type: unspecified Qualified Code(s): D72.829 - Elevated white blood cell count, unspecified (3) SENTHIL (acute kidney injury) Current Visit: Yes Status: Acute Per cardiology: -Resolved, SCr 1.12 today. -Management per primary service. (4) Anemia Current Visit: Yes Status: Acute Per cardiology: -H/H stable, slight downtrend today, 9.6. -Denies active bleeding. -Recent GI evaluation 09/22--no active bleeding noted. Procedures: EGD 09/22/2018 Dr. De La Garza: Many linear and superficial esophageal ulcers might gastritis, gastroparesis -Appreciate GI recommendations regarding DAPT--asa/plavix therapy. Qualifiers: Anemia type: unspecified type Qualified Code(s): D64.9 - Anemia, unspecified (5) DKA (diabetic ketoacidoses) Current Visit: Yes Status: Acute Per cardiology: -DKA noted. -Management per primary service. Qualifiers: Diabetes mellitus type: type 2 Diabetes mellitus complication detail: without coma Qualified Code(s): E11.10 - Type 2 diabetes mellitus with ketoacidosis without coma Discussion w patient/family: The assessment and plan as outlined above was discussed with the patient and/or family members who expressed understanding and agreement. All questions were answered. Thank you for involving us in the care of your patient. Please call with any questions. The patient will be discussed and reviewed with Dr. Menjivar; changes to be made accordingly. Subjective Principal diagnosis: Pneumonia, DKA, SENTHIL, NSTEMI Interval history: Seen and examined. Reports intractable nausea, "feels horrible" No chest pain/angina reported. Objective General: Conversant, No Apparent Distress HEENT: Atraumatic, Normocephaly Cardiac: Reg Rate and Rhythm, Normal S1 and S2 Lungs: Normal Breath Sounds Neuro: Alert and responsive Abdomen: Soft Skin: No rashes noted on visualized skin Musculoskeletal: No Chest Wall Tenderness Extremities: No Edema, Normal Pulses Results 10/04/18 08:13 10/04/18 08:13 Lab Results 10/04/18 10/04/18 08:13 08:13 WBC 8.2 Hgb 9.6 L Hct 29.2 L Plt Count 174 Sodium 140 Potassium 3.5 Chloride 102 Carbon Dioxide 29 BUN 8 Creatinine 1.12 Glucose 135 H Calcium 8.6 Active Medications Amlodipine Besylate (Norvasc) 5 mg PO DAILY [facility]; Protocol Stop: 04/04/19 09:01 Last Admin: 10/04/18 07:57 Dose: Not Given Documented by: Aspirin (Aspirin) 81 mg PO DAILY [facility] Stop: 04/02/19 09:01 Last Admin: 10/04/18 07:57 Dose: Not Given Documented by: Atorvastatin Calcium (Lipitor) 80 mg PO HS [facility] Stop: 04/01/19 09:16 Last Admin: 10/03/18 20:01 Dose: 80 mg Documented by: Clopidogrel Bisulfate (Plavix) 75 mg PO DAILY [facility] Stop: 04/03/19 11:31 Last Admin: 10/04/18 07:58 Dose: Not Given Documented by: Dextrose/Water (Dextrose 50% (Syg)) 25 ml IVP [id number] PRN PRN Reason: Hypoglycemia Stop: 04/01/19 01:44 Last Admin: 10/02/18 00:07 Dose: 25 ml Documented by: Dextrose/Water (Dextrose 50% (Syg)) 25 ml IVP AD PRN PRN Reason: Hypoglycemia Stop: 04/03/19 11:12 Famotidine (Pepcid) 20 mg PO BIDAC [facility]; Protocol Stop: 04/03/19 16:31 Last Admin: 10/04/18 07:57 Dose: Not Given Documented by: Glucagon (Glucagen) 1 mg IM ONCE PRN PRN Reason: Hypoglycemia Stop: 04/03/19 11:12 Glucose (Gluctose) 15 gm PO ONCE PRN PRN Reason: Hypoglycemia Stop: 04/03/19 11:12 Glucose (Gluctose) 30 gm PO ONCE PRN PRN Reason: Hypoglycemia Stop: 04/03/19 11:12 Heparin Sodium (Porcine) (Heparin) 5,000 unit SQ Q12HCO [facility] Stop: 04/03/19 18:01 Last Admin: 10/04/18 04:57 Dose: 5,000 unit Documented by: Hydralazine HCl (Hydralazine) 10 mg IVP Q4H PRN PRN Reason: Hypertension Stop: 04/03/19 21:56 Last Admin: 10/03/18 11:47 Dose: 10 mg Documented by: Piperacillin Sod/Tazobactam (Sod 3.375 gm/ Sodium Chloride) 100 mls @ 25 mls/hr IVPB Q8HR [facility] Stop: 04/01/19 16:01 Last Admin: 10/04/18 07:52 Dose: 25 mls/hr Documented by: Dextrose (Dextrose 5%) 1,000 mls @ 100 mls/hr IVC .Q10H PRN PRN Reason: HYPOGLYCEMIA Stop: 04/03/19 11:12 Sodium Chloride (0.9 % Sodium Chloride) 1,000 mls @ 75 mls/hr IVC .[id number] [facility] Stop: 04/04/19 07:43 Last Admin: 10/03/18 20:01 Dose: 75 mls/hr Documented by: Vancomycin HCl 1,250 mg/ (Sodium Chloride) 250 mls @ 166.67 mls/hr IVPB Q12H [facility] Stop: 04/04/19 18:01 Last Admin: 10/04/18 04:56 Dose: 166.7 mls/hr Documented by: Insulin Detemir (Levemir) 10 unit SQ BID [facility] Stop: 04/03/19 21:01 Last Admin: 10/04/18 07:58 Dose: Not Given Documented by: Insulin Human Lispro (Humalog) 0 units SQ TIDAC [facility]; Protocol Stop: 04/03/19 11:31 Last Admin: 10/04/18 07:37 Dose: Not Given Documented by: Insulin Human Lispro (Humalog) 0 units SQ HS [facility]; Protocol Stop: 04/03/19 21:01 Last Admin: 10/03/18 20:12 Dose: Not Given Documented by: Lisinopril (Zestril) 10 mg PO DAILY [facility]; Protocol Stop: 04/04/19 09:01 Last Admin: 10/04/18 07:58 Dose: Not Given Documented by: Metoclopramide HCl (Reglan) 10 mg IVP Q6HR [facility] Stop: 04/02/19 00:01 Last Admin: 10/04/18 04:57 Dose: 10 mg Documented by: Metoprolol Succinate (Toprol Xl) 50 mg PO DAILY [facility] Stop: 04/04/19 09:01 Last Admin: 10/04/18 07:58 Dose: Not Given Documented by: Metoprolol Tartrate (Lopressor) 5 mg IVP Q4HR [facility] Stop: 04/04/19 11:02 Last Admin: 10/04/18 07:53 Dose: 5 mg Documented by: Naloxone HCl (Narcan) 0.4 mg IVP Q2MPRN PRN PRN Reason: SEE COMMENTS Stop: 04/01/19 03:26 Ondansetron HCl (Zofran) 4 mg IVP Q6HR [facility]; Protocol PRN Reason: Nausea And Vomiting Stop: 04/01/19 01:47 Last Admin: 10/02/18 09:42 Dose: 4 mg Documented by: Pantoprazole Sodium (Protonix) 40 mg IVP 0630 [facility] Stop: 04/02/19 23:16 Last Admin: 10/04/18 04:57 Dose: 40 mg Documented by: Promethazine HCl (Phenergan) 12.5 mg IVP Q6HR PRN PRN Reason: Nausea And Vomiting Stop: 04/04/19 08:55 Last Admin: 10/03/18 11:47 Dose: 12.5 mg Documented by: Sucralfate (Carafate) 1 gm PO TIDAC [facility] Stop: 04/03/19 11:31 Last Admin: 10/04/18 07:57 Dose: Not Given Documented by: - Imaging and Cardiology Echo: report reviewed Other Results: 12 hour tele: avg HR=89 SR. No events noted. Consult Discharge Plan - Plan Referrals: Darien Santiago MD [Primary Care Provider] - 10/11/18 9:45 am
[2018-10-04] MEDS: Ondansetron 4 MG/2 ML VIAL IVP PRN (12:14)
[2018-10-04] MEDS ORDERED: Benzonatate 100 MG CAPSULE PO PRN (13:03)
--- NOTE | 2018-10-04 16:06 | Internal Med Progress Note ---
Hospitalist Progress Note - Encounter Date of Encounter: 10/04/18 Time of Encounter: 08:00 - Subjective Interval History: CAme in for DKA and elevated troponins. Stable this am - Exam Vitals: Temp Pulse Resp BP Pulse Ox 98.7 F 91 18 185/96 93 10/04/18 11:26 10/04/18 11:26 10/04/18 11:26 10/04/18 11:10/04/18 11:26 Exam: GENERAL: No acute distress. Alert awake oriented 3. Son at bedside HEENT: Atraumatic and normocephalic. CARDIOVASCULAR: Regular rate and rhythm. S1 and S2 present. No murmurs, gallops, or rubs. RESPIRATORY: Decreased breath sound bilaterally GASTROINTESTINAL: Abdomen is soft, nontender, nondistended. No guarding or rebound EXTREMITIES: No clubbing, cyanosis, or edema present in bilateral lower extremities. SKIN: Warm, dry, and intact. NEUROLOGIC: No apparent focal deficits. Motor 5 x 5 in all 4 extremity. Cranial nerves II-12 intact Psych-limited communication. Flat affect. Denies suicidal or homicidal thoughts or plan - Assessment and Plan (1) DKA (diabetic ketoacidoses) Current Visit: Yes Status: Acute Assessment and Plan: Patient came in with blood sugar greater than 700 and elevated anion gap of 30 Was started on insulin drip and gap has closed Continue diabetic diet and subcutaneous insulin with meals and at bedtime (2) NSTEMI (non-ST elevated myocardial infarction) Current Visit: Yes Status: Acute Assessment and Plan: Patient had troponins that peaked at 17 on admission and was initially on a heparin drip Cardiology following and plan for [facility] once medically stable. Echo showed preserved EF with no wall motion abnormalities (3) Sepsis Current Visit: Yes Status: Acute Assessment and Plan: Likely secondary to pneumonia Plan to complete course of vanc and zosyn tomorrow (4) Pneumonia Current Visit: Yes Status: Acute Assessment and Plan: Continue on vanc and zosyn. Plan to complete 5 day course (5) Nausea & vomiting Current Visit: Yes Status: Acute Assessment and Plan: Pt has persistent nausea and vomiting despie multiple antiemetics GI consulted and plan for EGD in am (6) DVT prophylaxis Current Visit: Yes Status: Acute Assessment and Plan: On heparin sc - Time Spent with Patient Total time spent is greater than 50% in coordination of care (as documented) at patient's floor/unit and/or counseling patient: Internal Medicine: Result - Labs CBC & Chem 7: 10/04/18 08:13 10/04/18 08:13 Labs: Short CBC 10/04/18 Range/Units 08:13 WBC 8.2 (4.3-11.1) K/mcL Hgb 9.6 L (12.9-16.9) g/dL Hct 29.2 L (37.5-50.1) % Plt Count 174 (140-400) K/mcL Neutrophils # 5.4 (1.6-8.9) K/mcL BMP 10/04/18 08:13 Sodium 140 Potassium 3.5 Chloride 102 Carbon Dioxide 29 BUN 8 Creatinine 1.12 Glucose 135 H Calcium 8.6 - ABG Interpretation ABG results: PT/INR, D-dimer PT 12.1 Seconds (9.4-12.1) 10/02/18 10:41 Consult Discharge Plan - Plan Referrals: Darien Santiago MD [Primary Care Provider] - 10/11/18 9:45 am (1) DKA (diabetic ketoacidoses) Qualifiers: Diabetes mellitus type: type 2 Diabetes mellitus complication detail: without coma Qualified Code(s): E11.10 - Type 2 diabetes mellitus with ketoacidosis without coma (3) Sepsis Qualifiers: Sepsis type: sepsis due to unspecified organism Qualified Code(s): A41.9 - Sepsis, unspecified organism (4) Pneumonia Qualifiers: Qualified Code(s): J18.9 - Pneumonia, unspecified organism (5) Nausea & vomiting Qualifiers: Vomiting type: unspecified Vomiting Intractability: non-intractable Qualified Code(s): R11.2 - Nausea with vomiting, unspecified
--- NOTE | 2018-10-04 19:03 | Anesthesia Evaluation PreOp ---
Date of Encounter: 10/04/18 Time of Encounter: 19:01 - Past History Planned Operation: EGD Cardiac History: [place] (2008), HTN, Hyperlipidemia Other Medical History: Renal (CRD stage 3), Diabetes Type II, GERD Alcohol Use: none, heavy Drug use: none Medications and Allergies Albuterol Sulfate [Proair Hfa] 2 puff IH Q4-6H PRN 09/19/18 [History] Atorvastatin Calcium [Lipitor] 20 mg PO DAILY 09/19/18 [History] Gabapentin 600 mg PO TID 09/19/18 [History] Insulin DETEMIR [Levemir] 20 unit SQ HS 09/19/18 [History] Insulin LISPRO [HumaLOG] 0 unit SQ TID 09/19/18 [History] Losartan Potassium 100 mg PO DAILY 09/19/18 [History] Metoprolol Succinate [Toprol Xl] 25 mg PO DAILY 09/19/18 [History] Famotidine [Pepcid] 20 mg PO BID 30 Days #60 tablet 09/25/18 [Rx] Mag Hydrox/Al Hydrox/Simeth [Maalox] 30 ml PO Q4H PRN udc 09/25/18 [Rx] Metoclopramide [Reglan] 10 mg PO QIDAC #120 tablet 09/25/18 [Rx] Omeprazole [PriLOSEC] 20 mg PO BIDAC #30 cap 09/25/18 [Rx] Sucralfate [Carafate] 1 gm PO TIDAC udc 09/25/18 [Rx] Allergy/AdvReac Type Severity Reaction Status Date / Time morphine Allergy Itching Verified 07/13/18 13:39 - Meds/Allergy Pre-op Review Medications Reviewed: Yes Allergies Reviewed: Yes Beta Blockers on Current Med List: Yes Anesthesia Results - Labs 10/04/18 08:13 10/04/18 08:13 - Imaging EKG: report reviewed (SINUS RHYTHM NONSPECIFIC T-WAVE ABNORMALITY) Additional studies: Echocardiogram Name: Demetrius Vick Date of Study: 09/19/2018 EV/EV echocardiogram Impressions: LVEF 60-65%. Mild left ventricular diastolic dysfunction. Normal right ventricular structure and function. No evidence of pulmonary hypertension. No significant valvular dysfunction. 08/21/18 Stress EF-59% No ischemia Anesthesia Exam Vital Signs/O2 Sat, Most Current Temp Pulse Resp BP Pulse Ox 98.8 F 96 18 183/92 91 10/04/18 16:40 10/04/18 16:40 10/04/18 16:40 10/04/18 16:40 10/04/18 16:40 NPO (# of Hours): > 8 hrs Pain Scale: 0 Pain Scale Used: Numeric (1 - 10) - HEENT Pupil (Motor): Pupils equal, EOMI Mallampati: I Teeth: Normal Oral Opening: Greater than 3 - BATTER OUT LOC: Oriented BATTER OUT Motor: Normal RUE, Normal LUE, Normal RLE, Normal LLE, Normal Face BATTER OUT Sensory: Normal: RUE, LUE, RLE, LLE, Face - Cardiac Rhythm: Regular Murmur: None JVD: No Carotid Bruit: No - Pulmonary Breath Sounds: bilateral Clear Respiratory Effort: Symmetrical Anesthesia Assess/Plan ASA Score: 3 Level of consciousness: Oriented Anesthetic Plan: MAC Autologous Blood: Yes Monitoring Plan: Standard Monitors Recovery Plan: Other
[2018-10-05] MEDS: *HR* Metoprolol 5 MG/5 ML VIAL IVP SCH ×3 (00:58→10:00)
[2018-10-05] MEDS: Piperacillin/Tazobactam 3.375 GM in 0.9 % Sodium Chloride Mini Bag 100 ML IVPB SCH ×3 (00:59→15:47)
[2018-10-05] MEDS: Metoclopramide 10 MG/2 ML VIAL IVP SCH ×5 (00:59→23:58)
[2018-10-05] MEDS: *HR* Heparin 5,000 UNIT/ML VIAL SQ SCH ×2 (05:41→17:50)
[2018-10-05] MEDS: Pantoprazole 40 MG VIAL IVP SCH (05:41)
--- NOTE | 2018-10-05 08:51 | Internal Med Progress Note ---
Hospitalist Progress Note - Encounter Date of Encounter: 10/05/18 Time of Encounter: 08:50 - Subjective Interval History: Admitted for DKA and elevated troponins. Gap has closed. S/p endoscopy. Planned for LHC in am - Exam Vitals: Temp Pulse Resp BP Pulse Ox 99.1 F 87 15 168/82 93 10/05/18 06:32 10/05/18 06:32 10/05/18 06:32 10/05/18 06:32 10/05/18 06:32 Exam: GENERAL: No acute distress. Alert awake oriented 3. Son at bedside HEENT: Atraumatic and normocephalic. CARDIOVASCULAR: Regular rate and rhythm. S1 and S2 present. No murmurs, gallops, or rubs. RESPIRATORY: Decreased breath sound bilaterally GASTROINTESTINAL: Abdomen is soft, nontender, nondistended. No guarding or rebound EXTREMITIES: No clubbing, cyanosis, or edema present in bilateral lower extremities. SKIN: Warm, dry, and intact. NEUROLOGIC: No apparent focal deficits. Motor 5 x 5 in all 4 extremity. Cranial nerves II-12 intact Psych-limited communication. Flat affect. Denies suicidal or homicidal thoughts or plan - Assessment and Plan (1) DKA (diabetic ketoacidoses) Current Visit: Yes Status: Acute Assessment and Plan: Patient came in with blood sugar greater than 700 and elevated anion gap of 30 Was started on insulin drip and gap has closed Continue diabetic diet and subcutaneous insulin with meals and at bedtime (2) NSTEMI (non-ST elevated myocardial infarction) Current Visit: Yes Status: Acute Assessment and Plan: Patient had troponins that peaked at 17 on admission and was initially on a heparin drip Cardiology following and plan for [facility] once medically stable. Echo showed preserved EF with no wall motion abnormalities Left heart cath planned for am per cardiology. NPO from midnight (3) Sepsis Current Visit: Yes Status: Acute Assessment and Plan: Likely secondary to pneumonia Plan to complete course of vanc and zosyn tomorrow Resolved. D?C vanc and zosyn today (4) Pneumonia Current Visit: Yes Status: Acute Assessment and Plan: Continue on vanc and zosyn. Plan to complete 5 day course (5) Nausea & vomiting Current Visit: Yes Status: Acute Assessment and Plan: Pt has persistent nausea and vomiting despie multiple antiemetics GI consulted and plan for EGD in am EGD done today and showed two non bleeding ulcers. Continue on protonix Zofran and phenergan (6) DVT prophylaxis Current Visit: Yes Status: Acute Assessment and Plan: On heparin sc - Time Spent with Patient Total time spent is greater than 50% in coordination of care (as documented) at patient's floor/unit and/or counseling patient: Internal Medicine: Result - Labs CBC & Chem 7: 10/05/18 12:08 10/05/18 12:08 - ABG Interpretation ABG results: PT/INR, D-dimer PT 12.1 Seconds (9.4-12.1) 10/02/18 10:41 Consult Discharge Plan - Plan Referrals: Darien Santiago MD [Primary Care Provider] - 10/11/18 9:45 am (1) DKA (diabetic ketoacidoses) Qualifiers: Diabetes mellitus type: type 2 Diabetes mellitus complication detail: without coma Qualified Code(s): E11.10 - Type 2 diabetes mellitus with ketoacidosis without coma (3) Sepsis Qualifiers: Sepsis type: sepsis due to unspecified organism Qualified Code(s): A41.9 - Sepsis, unspecified organism (4) Pneumonia Qualifiers: Qualified Code(s): J18.9 - Pneumonia, unspecified organism (5) Nausea & vomiting Qualifiers: Vomiting type: unspecified Vomiting Intractability: non-intractable Qualified Code(s): R11.2 - Nausea with vomiting, unspecified
[2018-10-05] MEDS ORDERED: Lidocaine 2% Syringe 100 MG/5 ML IV ONE (09:29)
[2018-10-05] MEDS ORDERED: *HR* Propofol 200 MG/20 ML VIAL IVP ONE (09:29)
[2018-10-05] MEDS ORDERED: Aminoglycoside Consult 1 EACH MC ONE (09:29)
[2018-10-05] MEDS: Famotidine 20 MG TABLET PO SCH ×2 (09:58→15:46)
[2018-10-05] MEDS: Metoprolol XL (24 HR) Succ 50 MG TAB.ER.24H PO SCH (09:58)
[2018-10-05] MEDS: Aspirin 81 MG TAB.CHEW PO SCH (09:58)
[2018-10-05] MEDS: amLODIPine 5 MG TABLET PO SCH (09:59)
[2018-10-05] MEDS: Insulin LISPRO 300 UNITS/3 ML VIAL SQ SCH ×4 (10:00→21:44)
[2018-10-05] MEDS: Insulin DETEMIR 100 UNIT/ML X5UNITS SQ SCH ×2 (10:13→21:48)
--- NOTE | 2018-10-05 11:43 | Event Note ---
Date of Encounter: 10/05/18 Time of Encounter: 11:42 - Cardiology Event Note Patient is pending GI evaluation today. Further cardiology recs pending GI eval. PLan for LHC when able. Will make NPO after midnight for potential LHC in am.
[2018-10-05 12:28] LABS: Basophils # 0.1 K/mcL (0.0-0.2); Basophils % 0.5 %; Eosinophils # 0.3 K/mcL (0.0-0.6); Eosinophils % 3.6 %; Hematocrit 31.1 % (37.5-50.1); Hemoglobin 10.3 g/dL (12.9-16.9); Immature Granulocytes % 0.3 % (0-4); Lymphocytes # 1.3 K/mcL (0.6-4.6); Lymphocytes % 14.1 %; Mean Corpuscular HGB Conc 33.1 g/dL (31.6-35.5); Mean Corpuscular Hemoglobin 28.4 pg (28.0-33.3); Mean Corpuscular Volume 85.7 fL (83.0-100.0); Mean Platelet Volume 11.5 fL (9.4-12.4); Monocytes # 0.8 K/mcL (0.0-1.3); Monocytes % 8.5 %; Neutrophils # 6.7 K/mcL (1.6-8.9); Platelet Count 199 K/mcL (140-400); Red Blood Count 3.63 M/mcL (4.19-5.50); Red Cell Distribution Width 13.2 % (11.5-14.5)
[2018-10-05 12:46] LABS: BUN/Creatinine Ratio 6 (6-26); Blood Urea Nitrogen 7 mg/dL (6-20); Calcium 8.3 mg/dL (8.6-10.3); Carbon Dioxide 28 mEq/L (23-29); Chloride 100 mEq/L (98-107); Glucose 201 mg/dL (70-105); Osmolality,Calculated 290 (280-300); Potassium 3.6 mEq/L (3.5-5.1); Sodium 138 mEq/L (136-145); eGFR For Non-African Americans > 60 (> 60)
--- NOTE | 2018-10-05 14:33 | Event Note ---
Date of Encounter: 10/05/18 Time of Encounter: 14:30 - Cardiology Event Note EGD results: 2 nonbleeding ulcers and recommendations for PPI. NPO after MN for possible LHC tomorrow. We will follow H&H.
[2018-10-05] MEDS: Ondansetron 4 MG/2 ML VIAL IVP PRN (17:50)
[2018-10-06] MEDS: *HR* Heparin 5,000 UNIT/ML VIAL SQ SCH ×2 (05:43→19:07)
[2018-10-06] MEDS: Insulin LISPRO 300 UNITS/3 ML VIAL SQ SCH ×4 (05:52→21:55)
[2018-10-06] MEDS: Pantoprazole 40 MG VIAL IVP SCH (05:52)
[2018-10-06] MEDS: Metoclopramide 10 MG/2 ML VIAL IVP SCH ×3 (05:52→19:07)
[2018-10-06 06:43] LABS: Basophils % 0.5 %; Eosinophils # 0.4 K/mcL (0.0-0.6); Eosinophils % 4.3 %; Hematocrit 32.5 % (37.5-50.1); Hemoglobin 10.8 g/dL (12.9-16.9); Immature Granulocytes % 0.4 % (0-4); Lymphocytes # 1.6 K/mcL (0.6-4.6); Lymphocytes % 19.6 %; Mean Corpuscular HGB Conc 33.2 g/dL (31.6-35.5); Mean Corpuscular Hemoglobin 28.4 pg (28.0-33.3); Mean Corpuscular Volume 85.5 fL (83.0-100.0); Mean Platelet Volume 11.3 fL (9.4-12.4); Monocytes # 0.8 K/mcL (0.0-1.3); Monocytes % 9.7 %; Neutrophils # 5.4 K/mcL (1.6-8.9); Platelet Count 230 K/mcL (140-400); Red Cell Distribution Width 13.2 % (11.5-14.5); Segmented Neutrophils % 65.5 %
[2018-10-06 07:00] LABS: BUN/Creatinine Ratio 7 (6-26); Blood Urea Nitrogen 8 mg/dL (6-20); Calcium 8.6 mg/dL (8.6-10.3); Carbon Dioxide 28 mEq/L (23-29); Chloride 100 mEq/L (98-107); Glucose 218 mg/dL (70-105); Magnesium 1.9 mg/dL (1.6-2.6); Osmolality,Calculated 289 (280-300); Phosphorous 2.8 mg/dL (2.7-4.5); Potassium 3.5 mEq/L (3.5-5.1); Sodium 137 mEq/L (136-145); eGFR For Non-African Americans > 60 (> 60)
--- NOTE | 2018-10-06 08:11 | Event Note ---
Date of Encounter: 10/06/18 Time of Encounter: 08:10 - Cardiology Event Note Laboratory Tests 09/30/18 10/02/18 10/04/18 02:11 10:41 08:13 Hgb 11.0 L 9.6 L Hct 34.4 L 29.2 L INR 1.1 Creatinine Est GFR (Non-Af Amer) Magnesium 10/06/18 10/06/18 04:00 04:00 Hgb 10.8 L Hct 32.5 L INR Creatinine 1.20 Est GFR (Non-Af Amer) > 60 Magnesium 1.9 Chest pain-free. Patient agreeable to left heart catheterization. Further recommendations after catheterization. All questions answered.
[2018-10-06] MEDS: Aspirin 81 MG TAB.CHEW PO SCH (08:35)
[2018-10-06] MEDS: Metoprolol XL (24 HR) Succ 50 MG TAB.ER.24H PO SCH (08:36)
[2018-10-06] MEDS: Famotidine 20 MG TABLET PO SCH ×2 (08:36→19:07)
[2018-10-06] MEDS: amLODIPine 5 MG TABLET PO SCH (08:36)
--- NOTE | 2018-10-06 10:49 | Internal Med Progress Note ---
Hospitalist Progress Note - Encounter Date of Encounter: 10/06/18 Time of Encounter: 14:00 - Subjective Interval History: No acute events overnight. Planned for cath today - Exam Vitals: Temp Pulse Resp BP Pulse Ox 99.0 F 88 16 166/84 93 10/06/18 07:00 10/06/18 07:00 10/06/18 07:00 10/06/18 07:00 10/06/18 07:00 Exam: GENERAL: No acute distress. Alert awake oriented 3. Son at bedside HEENT: Atraumatic and normocephalic. CARDIOVASCULAR: Regular rate and rhythm. S1 and S2 present. No murmurs, gallops, or rubs. RESPIRATORY: Decreased breath sound bilaterally GASTROINTESTINAL: Abdomen is soft, nontender, nondistended. No guarding or rebound EXTREMITIES: No clubbing, cyanosis, or edema present in bilateral lower extremities. SKIN: Warm, dry, and intact. NEUROLOGIC: No apparent focal deficits. Motor 5 x 5 in all 4 extremity. Cranial nerves II-12 intact Psych-limited communication. Flat affect. Denies suicidal or homicidal thoughts or plan - Assessment and Plan (1) DKA (diabetic ketoacidoses) Current Visit: Yes Status: Acute Assessment and Plan: Patient came in with blood sugar greater than 700 and elevated anion gap of 30 Was started on insulin drip and gap has closed Continue diabetic diet and subcutaneous insulin with meals and at bedtime (2) NSTEMI (non-ST elevated myocardial infarction) Current Visit: Yes Status: Acute Assessment and Plan: Patient had troponins that peaked at 17 on admission and was initially on a heparin drip Cardiology following and plan for [facility] once medically stable. Echo showed preserved EF with no wall motion abnormalities Left heart cath planned for today (3) Sepsis Current Visit: Yes Status: Acute Assessment and Plan: Likely secondary to pneumonia Plan to complete course of vanc and zosyn tomorrow Resolved. vanc and zosyn d/c (4) Pneumonia Current Visit: Yes Status: Acute Assessment and Plan: Continue on vanc and zosyn. Plan to complete 5 day course (5) Nausea & vomiting Current Visit: Yes Status: Acute Assessment and Plan: Pt has persistent nausea and vomiting despie multiple antiemetics GI consulted and plan for EGD in am EGD done today and showed two non bleeding ulcers. Continue on protonix Zofran and phenergan (6) DVT prophylaxis Current Visit: Yes Status: Acute Assessment and Plan: On heparin sc - Time Spent with Patient Total time spent is greater than 50% in coordination of care (as documented) at patient's floor/unit and/or counseling patient: Internal Medicine: Result - Labs CBC & Chem 7: 10/06/18 04:00 10/06/18 04:00 Labs: Short CBC 10/05/18 10/06/18 Range/Units 12:08 04:00 WBC 9.2 8.2 (4.3-11.1) K/mcL Hgb 10.3 L 10.8 L (12.9-16.9) g/dL Hct 31.1 L 32.5 L (37.5-50.1) % Plt Count 199 230 (140-400) K/mcL Neutrophils # 6.7 5.4 (1.6-8.9) K/mcL BMP 10/05/18 10/06/18 12:08 04:00 Sodium 138 137 Potassium 3.6 3.5 Chloride 100 100 Carbon Dioxide 28 28 BUN 7 8 Creatinine 1.17 1.20 Glucose 201 H 218 H Calcium 8.3 L 8.6 - ABG Interpretation ABG results: PT/INR, D-dimer PT 12.1 Seconds (9.4-12.1) 10/02/18 10:41 Consult Discharge Plan - Plan Referrals: Darien Santiago MD [Primary Care Provider] - 10/11/18 9:45 am (1) DKA (diabetic ketoacidoses) Qualifiers: Diabetes mellitus type: type 2 Diabetes mellitus complication detail: without coma Qualified Code(s): E11.10 - Type 2 diabetes mellitus with ketoacidosis without coma (3) Sepsis Qualifiers: Sepsis type: sepsis due to unspecified organism Qualified Code(s): A41.9 - Sepsis, unspecified organism (4) Pneumonia Qualifiers: Qualified Code(s): J18.9 - Pneumonia, unspecified organism (5) Nausea & vomiting Qualifiers: Vomiting type: unspecified Vomiting Intractability: non-intractable Qualified Code(s): R11.2 - Nausea with vomiting, unspecified
--- NOTE | 2018-10-06 15:14 | Pre-Sedation Evaluation ---
Pre-sedation evaluation - Pre-sedation checklist Date of procedure: 09/30/18 Procedure: LHC Recent Vitals: Last Vital Signs Temp 99.1 F 10/06/18 12:14 Pulse 90 10/06/18 12:14 Resp 18 10/06/18 12:14 BP 160/76 10/06/18 12:14 Pulse Ox 95 10/06/18 12:14 ASA Classification *see protocol: CLASS II-Mild systemic disease Cardiac Registry (Cardio Only) - Functional Capacity Functional Capacity: >=4 METS without symptoms - Clincal Frailty Scale Clinical Frailty Scale: Vulnerable
[2018-10-06] MEDS ORDERED: 0.9 % Sodium Chloride 2,000 ML ONE (17:30)
[2018-10-06] MEDS ORDERED: Heparin 1,000 UNITS/500 mL 500 ML ONE (17:31)
[2018-10-06] MEDS ORDERED: *HR* Heparin 10,000 UNIT/10 ML VIAL ONE (17:31)
[2018-10-06] MEDS ORDERED: ISOVUE-370 200 ML INFUS..BTL ONE (17:31)
[2018-10-06] MEDS ORDERED: Nitroglycerin 1,000 MCG/10 ML VIAL IV ONE (17:31)
[2018-10-06] MEDS ORDERED: *HR* FentaNYL (PF) 100 MCG/2 ML VIAL ONE (17:44)
[2018-10-06] MEDS ORDERED: *HR* Midazolam HCl 2 MG/2 ML VIAL ONE (17:44)
--- NOTE | 2018-10-06 18:34 | Invasive Diagnostic Lab Proc ---
Name: Demetrius Vick Date of Study: 10/06/2018 Date: 1960 Ht: 70.1in Medical Record#: [id number] Age: 58 Wt: 180.78lb Gender: Male BSA: 2. Order #: [id number] BMI: 25.88 Physicians Procedure Physician: Dalia Basilio MD Referring MD: Referring MD: Staff Name Position Time In Nanci Ferreira RT (R) Monitor 05:50 PM CassiLeonor RT (R) Scrub 05:50 PM Chano Wharton RN Quartz Cutter 05:50 PM Indications Indication Non-Stemi Procedures Performed Procedure L HRT ARTERY/VENTRICLE ANGIO Pre-Procedure Checklist Informed consent is complete signed and on chart. H&P is on chart. ID band is on and ID verified with patient. Patient NPO for procedure The procedure was described for the patient and questions were answered. Blood Pressure: 153/80 ECG is on chart. Rhythm: NSR Plan of Care Patient will tolerate the procedure without complications. Adequate level of comfort will be maintained. Hemodynamics will remain stable Patient will recover from procedure without complications. Respiratory function will be maintained. Cardiac rhythm will remain stable. Patient temperature will be maintained. Patient and/or family have verbalized understanding of the procedure. Patient Education Chief Complaint/Reason for Test: Cardiac Cath Developmental Category: Adult (18-64 years) Developmentally Appropriate for Age: Yes Learning Barriers: None Education Needs: Procedure Education Method: Verbal Information Taught: Cardiac Cath Educational Evaluation: Able to repeat information Intravenous Access Time IV Size Location DC'd Fluid/Drip Rate Units RN PICC Line Lt Cephalic 0.9NaCl ml/hr Chano Wharton RN Allergies No Known Allergies Meloxicam morphine Vital Signs Time BP (mmHg) HR (bpm) O2 Sat. RR (bpm) LOC 05:52 PM 152 / 90 93 97 % 18 05:57 PM / % 4 = Oriented but drowsy 05:52 PM 152 / 90 93 97 % 05:57 PM 149 / 85 92 97 % 17 06:02 PM 151 / 84 91 97 % 17 06:07 PM 158 / 88 93 97 % 16 05:57 PM / % 4 = Oriented but drowsy Procedural Medications Time Medication Dose Units Method Given By 05:53 PM Oxygen 2 L/min nasal cannula Chano Wharton RN 05:53 PM Versed 1 mg Intravenous Chano Wharton RN 05:54 PM Fentanyl 50 mcg Intravenous Chano Wharton RN 05:57 PM Lidocaine 2% 10 ml Subcutaneous Dalia Basilio MD ASA Classification: CLASS II- Mild systemic disease (i.e. well-controlled diabetes, hypertension, asthma, cigarette smoking) Mey Score Preprocedure Postprocedure Activity 2- Moves 4 extremities sustained head lift Activity 2- Moves 4 extremities sustained head lift Circulation 2- SBP +/= 20 points of pre-anesthetic level Circulation 2- SBP +/= 20 points of pre-anesthetic level Consciousness 2- Awake and alert oriented x 3 Consciousness 2- Awake and alert oriented x 3 O2 Saturation 2- Able to maintain O2 satruation of 92% on room air O2 Saturation 2- Able to maintain O2 satruation of 92% on room air Respiratory 2- Able to deep breathe and cough well Respiratory 2- Able to deep breathe and cough well Total Score 10 Total Score 10 Contrast Agent: Isovue Diagnostic Contrast: 50 ml Total Contrast: 50 ml Fluoro Dose: 21 mGy Procedure Log Time Note Enter By 05:49 PM CathStat 05:49 PM Vitals capture started with the following parameters, Patient=Adult, Interval=5 min, Initial Hzqdozsk=708 mmHg, Deflation Rate=5 mmHg, Cuff placed on Left Arm 05:50 PM Pt arrived to cleaner laboratory equipment 2 at 17:50 tsites 05:50 PM Nanci Ferreira RT (R) Position: Monitor Time in: 17:50 tsites 05:50 PM Leonor Ye RT (R) Position: Scrub Time in: 17:50 tsites 05:50 PM Chano Wharton RN Position: Quartz Cutter Time in: 17:50 tsites 05:50 PM Patient charges- Angio tray pack, Navilyst 3mm J, Pulse Oximetry and ACIST tubing and transducer tsites 05:50 PM Case Delayed No tsites 05:50 PM Hair removed from procedure site in holding area using clippers. Bilateral groin prepped with Chloraprep by Nicolas Escoto RN, then patient was draped. Skin intact. tsites 05:50 PM Physician arrived 17:50 tsites 05:51 PM Meet and greet completed tsites 05:51 PM Sign in performed according to hospital policy. Informed consent was obtained. tsites 05:51 PM Procedure start 17:51 tsites 05:51 PM ASA Class CLASS II- Mild systemic disease (i.e. well-controlled diabetes, hypertension, asthma, cigarette smoking) tsites 05:51 PM Vitals capture started with the following parameters, Patient=Adult, Interval=5 min, Initial Zgavnqim=511 mmHg, Deflation Rate=5 mmHg, Cuff placed on Left Arm 05:51 PM Recorded ECG: HR=94 Condition=Condition 1 05:52 PM HR=93 bpm, LSVG=982/90 mmhg, SpO2=97.0 %, Comment=NSR 05:53 PM Time: 17:53 Oxygen on at 2 L/min per nasal cannula by Chano Wharton RN [email or web address] 05:54 PM Time: 17:53 Versed 1 mg Intravenous Given by Chano Wharton [email or web address] 05:54 PM Time: 17:54 Fentanyl 50 mcg Intravenous Given by Chano Wharton RN [email or web address] 05:55 PM Pressure channel 1 zeroed. 05:56 PM Pressure channel 1 zeroed. 05:56 PM Pressure channel 1 zeroed. 05:57 PM HR=92 bpm, QGOO=376/85 mmhg, SpO2=97.0 %, Resp=17 B/min, Comment=NSR 05:57 PM Time: 17:57 Patient comfortable and pain free: Yes [email or web address] 05:57 PM Time: 17:57LOC: 4 = Oriented but drowsy [email or web address] 05:57 PM Time out was performed according to hospital policy. Conscious sedation and anesthesia was achieved (see medication log with in this report above) [email or web address] 05:57 PM Time: 17:57 10 ml Lidocaine 2% to right groin Subcutaneous Given by Dalia Basilio MD [email or web address] 05:57 PM Micro-Introducer Kit utilized for sheath placement [email or web address] 05:57 PM 3 mls contrast injected into Rt groin. [email or web address] 05:58 PM Access obtained by percutaneous puncture. 6Fr 10cm Terumo [place] sheath placed in right Femoral artery. [id number] [email or web address] 05:59 PM 0.035 145cm Navilyst 3mmJ wire [id number] [email or web address] 05:59 PM 5Fr FR 4 catheter inserted over the wire [facility] [email or web address] 05:59 PM Recorded Pressure: LV, HR=91, Condition=Condition 1 (Left Ventricle) LV 135/7/10 05:59 PM Recorded Pressure: LV, Ao, HR=91, Condition=Condition 1 (Left Ventricle) LV 130/6/9, (Aorta) Ao 132/18/70 06:00 PM Catheter crossed the aortic valve and was selectively placed in the left ventricle. Pressures recorded on pullback for left heart catheterization. [email or web address] 06:00 PM RCA angiography performed in multiple views. [email or web address] 06:00 PM Coronary Dominance: right [email or web address] 06:00 PM Lesion found in Right PDA. Pre Stenosis: 50 Pre KURT Flow: 3: Complete and Brisk Flow/Perfusion [email or web address] 06:01 PM Catheter removed [email or web address] 06:01 PM 5Fr FL 4 catheter inserted over the wire DNC [email or web address] 06:01 PM LCA angiography performed in multiple views. [email or web address] 06:02 PM HR=91 bpm, YWVS=503/84 mmhg, SpO2=97.0 %, Resp=17 B/min, Comment=NSR 06:02 PM Recorded Pressure: Ao, HR=91, Condition=Condition 1 (Aorta) Ao 122/79/99 06:03 PM Recorded Pressure: Ao, HR=91, Condition=Condition 1 (Aorta) Ao 122/77/98 06:04 PM Catheter removed [email or web address] 06:04 PM Procedure completed at 18:04 10/06/2018 [email or web address] 06:04 PM Did you address KURT flow and Dominance? Coronary Dominance: right [email or web address] 06:06 PM Sign out completed: Radiation Dose 133.46 mGy, 21.2 Gy/cm2 Fluoro Time: 1.3 Isovue 370 - 200ml contrast 50 ml given by Dalia Basilio MD. Complications: None. 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 Sedation minutes 15. Cardiac Rehab Consult needed: No. Confirmed administered medications: Yes [email or web address] 06:06 PM Isovue 370 - 200ml,1 Bottle(s) used. [email or web address] 06:06 PM Arterial sheath pulled, Mynx closure device used and was Successful S/N. [email or web address] 06:06 PM Estimated Blood Loss: minimal [email or web address] 06:06 PM Post ECG NSR [email or web address] 06:06 PM Post Blood Pressure 151/84 [email or web address] 06:06 PM 18:06 Post Pulses Bilateral DP & PT 2+ [email or web address] 06:06 PM Information taught Cardiac Cath and Mynx [email or web address] 06:07 PM HR=93 bpm, DSTA=580/88 mmhg, SpO2=97.0 %, Resp=16 B/min, Comment=NSR 06:10 PM Education needs Procedure, Plan of Care, and Disease Process [email or web address] 06:10 PM Learning barriers :None [email or web address] 06:10 PM Education Methods Verbal [email or web address] 06:10 PM Education evaluation Able to repeat information [email or web address] 06:10 PM Site status No bleeding/hematoma - Rt Groin as reported by Sites, Leonor RT (R) at 18:10 [email or web address] 06:11 PM Opsite applied [email or web address] 06:11 PM Delay to floor No [email or web address] 06:11 PM Family placed in consult room. [email or web address] 06:11 PM Complications: None [email or web address] 06:11 PM Patient out of room: 18:11 [email or web address] 06:14 PM Time: 17:57LOC: 4 = Oriented but drowsy [email or web address] 06:14 PM Time: 17:57 Patient comfortable and pain free: No [email or web address] 06:21 PM Report given to Maria Elena THOMSON Pt taken to 3A Room #33. 18:21 [email or web address] 06:21 PM Patient out of room: 18:21 [email or web address] Complications Complication None None Hemodynamics Pressures Site Systolic/A Wave Diastolic/V Wave Mean LV 135 7 10 LV 130 6 9 AO 132 18 70 AO 122 79 99 AO 122 77 98 Post Procedure Information Blood Pressure: 151/84 mmHg Rhythm: NSR Post procedural instructions were given Closure Device Time Device Success/Fail 10/06/2018 6:11:00 PM MynxGrip yes Site Checks Time Location Status Staff Sheath In? Note 06:10 PM Rt Groin No bleeding/hematoma Sites, Leonor RT (R) Pulses Time Site Pre-Procedure Post-Procedure Note Bilateral DP & PT 2+ Bilateral radial 2+ 6:06:00 PM Bilateral DP & PT 2+ Updated by Nanci Ferreira, RT(R) on 10/06/2018 6:24:39 PM electronically signed on 10/06/2018 6:25:00 PM with status of Final
[2018-10-06] MEDS ORDERED: Insulin LISPRO 300 UNITS/3 ML VIAL SQ SCH (21:15)
[2018-10-06] MEDS: Insulin DETEMIR 100 UNIT/ML X5UNITS SQ SCH (21:28)
[2018-10-07] MEDS: Metoclopramide 10 MG/2 ML VIAL IVP SCH ×3 (01:20→12:06)
[2018-10-07] MEDS: *HR* Heparin 5,000 UNIT/ML VIAL SQ SCH ×2 (06:09→17:32)
[2018-10-07 06:39] LABS: Basophils % 0.4 %; Eosinophils # 0.3 K/mcL (0.0-0.6); Eosinophils % 3.7 %; Hematocrit 33.1 % (37.5-50.1); Hemoglobin 10.8 g/dL (12.9-16.9); Immature Granulocytes % 0.4 % (0-4); Lymphocytes # 1.6 K/mcL (0.6-4.6); Lymphocytes % 23.5 %; Mean Corpuscular HGB Conc 32.6 g/dL (31.6-35.5); Mean Corpuscular Hemoglobin 27.8 pg (28.0-33.3); Mean Corpuscular Volume 85.1 fL (83.0-100.0); Mean Platelet Volume 11.1 fL (9.4-12.4); Platelet Count 306 K/mcL (140-400); Red Blood Count 3.89 M/mcL (4.19-5.50); Red Cell Distribution Width 13.4 % (11.5-14.5)
[2018-10-07 06:55] LABS: BUN/Creatinine Ratio 9 (6-26); Blood Urea Nitrogen 11 mg/dL (6-20); Calcium 8.7 mg/dL (8.6-10.3); Carbon Dioxide 28 mEq/L (23-29); Chloride 98 mEq/L (98-107); Glucose 305 mg/dL (70-105); Magnesium 1.9 mg/dL (1.6-2.6); Osmolality,Calculated 295 (280-300); Phosphorous 3.3 mg/dL (2.7-4.5); Potassium 3.8 mEq/L (3.5-5.1); Sodium 137 mEq/L (136-145); eGFR For Non-African Americans > 60 (> 60)
[2018-10-07] MEDS ORDERED: Insulin LISPRO 300 UNITS/3 ML VIAL SQ SCH (07:30)
[2018-10-07] MEDS: Insulin LISPRO 300 UNITS/3 ML VIAL SQ SCH ×4 (08:22→21:10)
[2018-10-07] MEDS: Aspirin 81 MG TAB.CHEW PO SCH (08:25)
[2018-10-07] MEDS: amLODIPine 5 MG TABLET PO SCH (08:25)
[2018-10-07] MEDS: Metoprolol XL (24 HR) Succ 50 MG TAB.ER.24H PO SCH (08:25)
[2018-10-07] MEDS: Famotidine 20 MG TABLET PO SCH ×2 (08:25→16:25)
--- NOTE | 2018-10-07 10:08 | Cardiology Progress Note ---
Date of Encounter: 10/07/18 Time of Encounter: 10:00 Assessment and Plan (1) NSTEMI (non-ST elevated myocardial infarction) Current Visit: Yes Status: Acute Per Cardiology: [facility] [address] [place] with moderate CAD. NSTEMI, with peak troponin 17.23. TTE 09/2018 with LVEF preserved, no wall motion abnormalities. Repeat limited TTE with LVEF 65-70%, no wall motion abnormalities noted. [facility] 10/06/18: reviewed with Dr. Hope Larkin, moderate CAD with no intervention warranted. On aspirin, Plavix, statin, beta [place], JOEY inhibitor. Post procedure complications provided. Cardiology signing off, re-consult as needed, follow-up arranged. Discussed with primary service. Discussion w patient/family: The assessment and plan as outlined above was discussed with the patient and/or family members who expressed understanding and agreement. All questions were answered. Thank you for involving us in the care of your patient. Please call with any questions. Subjective Principal diagnosis: Pneumonia, DKA, SENTHIL, NSTEMI Interval history: Denies any chest pain, shortness of breath, palpitations. Denies any concerns overnight. Denies any concerns from his right groin site. Objective Vital Signs, Last 4 Hours Temp Pulse Resp BP Pulse Ox 10/07/18 08:10 98.6 F 96 16 149/84 93 General: Conversant, No Apparent Distress HEENT: Atraumatic, Normocephaly, Mucus Membranes Moist Neck: No JVD, Normal carotid pulses Cardiac: Reg Rate and Rhythm, Normal S1 and S2, No Murmur Lungs: Normal Breath Sounds, No Wheeze, Rales, Rhonchi Neuro: Alert and responsive, No focal deficits noted Abdomen: Soft, Non-Tender Skin: No rashes noted on visualized skin, Other (Right groin site remained intact, no hematoma, no ecchymosis, no bleeding, right PT and DP pulses 2+ palpable) Musculoskeletal: No Chest Wall Tenderness Extremities: No Clubbing, No Cyanosis, No Edema, Normal Pulses Results 10/07/18 06:04 10/07/18 06:04 Lab Results Laboratory Tests 10/07/18 10/07/18 06:04 06:04 Hgb 10.8 L Hct 33.1 L Creatinine 1.21 Est GFR (Non-Af Amer) > 60 ITS Impressions Chest X-Ray 09/30/18 09:20 IMPRESSION: 1. Right CVC tip in the distal superior vena cava. No pneumothorax. 2. New mild medial bibasilar opacities which may represent atelectasis versus developing pneumonia. D/ / Devaughn Zeng MD / Devaughn Zeng MD Interpreting Provider: Devaughn Zeng MD Chest X-Ray 10/02/18 15:50 IMPRESSION: Small left pleural effusion with patchy left basilar opacity suggesting possible pneumonia. Slight improvement compared to prior examination. D/ / Eris Farrell MD / Eris Farrell MD Interpreting Provider: Eris Farrell MD Active Medications Amlodipine Besylate (Norvasc) 10 mg PO DAILY [facility]; Protocol Stop: 04/07/19 09:01 Last Admin: 10/07/18 08:25 Dose: 10 mg Documented by: Aspirin (Aspirin) 81 mg PO DAILY [facility] Stop: 04/02/19 09:01 Last Admin: 10/07/18 08:25 Dose: 81 mg Documented by: Atorvastatin Calcium (Lipitor) 80 mg PO HS [facility] Stop: 04/01/19 09:16 Last Admin: 10/06/18 23:23 Dose: Not Given Documented by: Benzonatate (Tessalon) 100 mg PO TID PRN PRN Reason: Cough Stop: 04/05/19 13:04 Clopidogrel Bisulfate (Plavix) 75 mg PO DAILY [facility] Stop: 04/03/19 11:31 Last Admin: 10/07/18 08:25 Dose: 75 mg Documented by: Dextrose/Water (Dextrose 50% (Syg)) 25 ml IVP [id number] PRN PRN Reason: Hypoglycemia Stop: 04/01/19 01:44 Last Admin: 10/02/18 00:07 Dose: 25 ml Documented by: Dextrose/Water (Dextrose 50% (Syg)) 25 ml IVP AD PRN PRN Reason: Hypoglycemia Stop: 04/03/19 11:12 Famotidine (Pepcid) 20 mg PO BIDAC [facility]; Protocol Stop: 04/03/19 16:31 Last Admin: 10/07/18 08:25 Dose: Not Given Documented by: Glucagon (Glucagen) 1 mg IM ONCE PRN PRN Reason: Hypoglycemia Stop: 04/03/19 11:12 Glucose (Gluctose) 15 gm PO ONCE PRN PRN Reason: Hypoglycemia Stop: 04/03/19 11:12 Glucose (Gluctose) 30 gm PO ONCE PRN PRN Reason: Hypoglycemia Stop: 04/03/19 11:12 Heparin Sodium (Porcine) (Heparin) 5,000 unit SQ Q12HCO [facility] Stop: 04/03/19 18:01 Last Admin: 10/07/18 06:09 Dose: 5,000 unit Documented by: Hydralazine HCl (Hydralazine) 10 mg IVP Q4H PRN PRN Reason: Hypertension Stop: 04/03/19 21:56 Last Admin: 10/03/18 11:47 Dose: 10 mg Documented by: Dextrose (Dextrose 5%) 1,000 mls @ 100 mls/hr IVC .Q10H PRN PRN Reason: HYPOGLYCEMIA Stop: 04/03/19 11:12 Insulin Detemir (Levemir) 10 unit SQ HS [facility] Stop: 04/06/19 21:01 Last Admin: 10/06/18 21:28 Dose: 10 unit Documented by: Insulin Human Lispro (Humalog) 0 units SQ TIDAC [facility]; Protocol Stop: 04/08/19 07:31 Last Admin: 10/07/18 08:22 Dose: 8 units Documented by: Insulin Human Lispro (Humalog) 0 units SQ HS [facility]; Protocol Stop: 04/07/19 21:46 Last Admin: 10/06/18 21:55 Dose: 6 units Documented by: Lisinopril (Zestril) 10 mg PO DAILY [facility]; Protocol Stop: 04/04/19 09:01 Last Admin: 10/07/18 08:26 Dose: 10 mg Documented by: Metoclopramide HCl (Reglan) 10 mg IVP Q6HR [facility] Stop: 04/02/19 00:01 Last Admin: 10/07/18 06:09 Dose: 10 mg Documented by: Metoprolol Succinate (Toprol Xl) 50 mg PO DAILY [facility] Stop: 04/04/19 09:01 Last Admin: 10/07/18 08:25 Dose: 50 mg Documented by: Mupirocin (Bactroban Oint) 1 appl NS BID [facility] Stop: 10/10/18 21:01 Last Admin: 10/07/18 08:23 Dose: 1 appl Documented by: Naloxone HCl (Narcan) 0.4 mg IVP Q2MPRN PRN PRN Reason: SEE COMMENTS Stop: 04/01/19 03:26 Omeprazole (Prilosec) 20 mg PO DAILY@0630 [facility]; Protocol Stop: 04/08/19 06:31 Last Admin: 10/07/18 06:09 Dose: 20 mg Documented by: Ondansetron HCl (Zofran) 4 mg IVP Q6HR PRN; Protocol PRN Reason: Nausea And Vomiting Stop: 04/01/19 01:47 Last Admin: 10/05/18 17:50 Dose: 4 mg Documented by: Promethazine HCl (Phenergan) 12.5 mg IVP Q6HR PRN PRN Reason: Nausea And Vomiting Stop: 04/04/19 08:55 Last Admin: 10/03/18 11:47 Dose: 12.5 mg Documented by: Sucralfate (Carafate) 1 gm PO QIDAC [facility] Stop: 04/05/19 16:31 Last Admin: 10/07/18 08:24 Dose: 1 gm Documented by: - Imaging and Cardiology Echo: report reviewed Cardiac cath: report reviewed Consult Discharge Plan - Plan Referrals: Darien Santiago MD [Primary Care Provider] - 10/11/18 9:45 am
--- NOTE | 2018-10-07 10:30 | Discharge Summary ---
Date of Encounter: 10/07/18 Time of Encounter: 10:00 - Discharge Diagnosis (1) DKA (diabetic ketoacidoses) Priority: Primary Status: Acute Assessment and Plan: 58 year old male with a history of asthma, CAD, diabetes, hypertension, renal disease, hypercholesterolemia, and myocardial infarction. Recent medical history is significant for hospitalization at this facility on 09/19/2018 for management of DKA and NSTEMI, with discharge on 09/25/2018. He arrived at [facility] as a transfer from [facility], where he presented for evaluation of nausea and vomiting. Patient was found to be in DKA, with glucose >700. Laboratory studies were also significant for WBC 28, troponin 0.67, and lactic acid 6.9. Patient was started on an insulin gtt and fluid hydration per DKA protocol. He was assessed omn admission with DKA with blood sugar greater than 700 and elevated anion gap of 30. Was started on insulin drip and gap has closed. Continue diabetic diet and subcutaneous insulin with meals and at bedtime. He had persistent nausea for a couple of days for which he got an EGD which showed no acute findings. Nausea may be secondary to gastroparesis from diabetes. He is continue his home reglan. He was also assessed with sepsis secondary to pneumonia for which he completed a 5 day course of vanc ad zosyn His troponins were also elevated and peaked at 17. he was seen by cardiology and had a LHC done showing moderate CAD with no intervention on warranted. He was discharged on aspirin. BP meds were also adjusted on discharge. 35 minutes was spent discharging this patient Qualifiers: Diabetes mellitus type: type 2 Diabetes mellitus complication detail: without coma Qualified Code(s): E11.10 - Type 2 diabetes mellitus with ketoacidosis without coma (2) NSTEMI (non-ST elevated myocardial infarction) Priority: Primary Status: Acute (3) Sepsis Priority: Primary Status: Acute Qualifiers: Sepsis type: sepsis due to unspecified organism Qualified Code(s): A41.9 - Sepsis, unspecified organism (4) Pneumonia Priority: Primary Status: Acute Qualifiers: Qualified Code(s): J18.9 - Pneumonia, unspecified organism (5) Nausea & vomiting Priority: Primary Status: Acute Qualifiers: Vomiting type: unspecified Vomiting Intractability: non-intractable Qualified Code(s): R11.2 - Nausea with vomiting, unspecified (6) DVT prophylaxis Priority: Primary Status: Acute Hospital course: Mr. Vikc is a 58 year old male - Time Spent with Patient Total time spent providing and/or coordinating discharge services: - Discharge Medications Prescriptions: New Lisinopril [Zestril] 10 mg PO DAILY #30 tablet amLODIPine [Norvasc] 10 mg PO DAILY #60 tablet Aspirin 81 mg PO DAILY #60 tab.chew Continued Atorvastatin Calcium [Lipitor] 20 mg PO DAILY Metoprolol Succinate [Toprol Xl] 25 mg PO DAILY Insulin LISPRO [HumaLOG] 0 unit SQ TID Insulin DETEMIR [Levemir] 20 unit SQ HS Gabapentin 600 mg PO TID Albuterol Sulfate [Proair Hfa] 2 puff IH Q4-6H PRN PRN Reason: Shortness Of Breath Mag Hydrox/Al Hydrox/Simeth [Maalox] 30 ml PO Q4H PRN udc PRN Reason: Heartburn Sucralfate [Carafate] 1 gm PO TIDAC udc Famotidine [Pepcid] 20 mg PO BID 30 Days #60 tablet Omeprazole [PriLOSEC] 20 mg PO BIDAC #30 cap Metoclopramide [Reglan] 10 mg PO QIDAC #120 tablet Discontinued Losartan Potassium 100 mg PO DAILY Home Medications: Albuterol Sulfate [Proair Hfa] 2 puff IH Q4-6H PRN 09/19/18 [History] Atorvastatin Calcium [Lipitor] 20 mg PO DAILY 09/19/18 [History] Gabapentin 600 mg PO TID 09/19/18 [History] Insulin DETEMIR [Levemir] 20 unit SQ HS 09/19/18 [History] Insulin LISPRO [HumaLOG] 0 unit SQ TID 09/19/18 [History] Metoprolol Succinate [Toprol Xl] 25 mg PO DAILY 09/19/18 [History] Famotidine [Pepcid] 20 mg PO BID 30 Days #60 tablet 09/25/18 [Rx] Mag Hydrox/Al Hydrox/Simeth [Maalox] 30 ml PO Q4H PRN udc 09/25/18 [Rx] Metoclopramide [Reglan] 10 mg PO QIDAC #120 tablet 09/25/18 [Rx] Omeprazole [PriLOSEC] 20 mg PO BIDAC #30 cap 09/25/18 [Rx] Sucralfate [Carafate] 1 gm PO TIDAC udc 09/25/18 [Rx] Aspirin 81 mg PO DAILY #60 tab.chew 10/07/18 [Rx] Lisinopril [Zestril] 10 mg PO DAILY #30 tablet 10/07/18 [Rx] amLODIPine [Norvasc] 10 mg PO DAILY #60 tablet 10/07/18 [Rx] Allergies/Adverse Reactions: Allergy/AdvReac Type Severity Reaction Status Date / Time morphine Allergy Itching Verified 07/13/18 13:39 Date of admission: 09/30/18 03:57 Primary care physician: Darien Santiago MD Consults: 09/30/18 02:00 Consult to Nutrition [CONS] Routine Comment: Consulting Provider: NUTRITION Reason for Dietary Consult: MST Score 09/30/18 05:12 Consult to Cardiology [CONS] Routine Comment: Consulting Provider: Cardiology Mariam Reason for Consult: NSTEMI; troponin elevated at 13.78 Time Notified: 05:13 Call Completed: No 09/30/18 08:27 Consult to Interventional Radiology [CONS] Routine Consulting Provider: Radiology Interventional Cols Reason for Consult: central venous access for DKA and NSTEMI Call Completed: Yes 09/30/18 08:37 Consult to Surgery [CONS] Stat Consulting Provider: Benji Lima Reason for Consult: central venous access Call Completed: Yes 10/02/18 10:51 Consult to Invasive Line Access Team [CONS] Routine Reason for Consult: epiv Line Type: EPIV 10/03/18 15:27 Consult to Gastroenterology [CONS] Routine Consulting Provider: Gastroenterology Mariam Reason for Consult: intractable nausea Call Completed: Yes 10/06/18 09:43 Consult to Cardiac Rehabilitation-Phase1 [CONS] Routine Comment: Reason for Consult: NSTEMI Call Completed: No - Constitutional Vitals: Temp Pulse Resp BP Pulse Ox 98.6 F 96 16 149/84 93 10/07/18 08:10 10/07/18 08:10 10/07/18 08:10 10/07/18 08:10 10/07/18 08:10 Exam: GENERAL: No acute distress. Alert awake oriented 3. Son at bedside HEENT: Atraumatic and normocephalic. CARDIOVASCULAR: Regular rate and rhythm. S1 and S2 present. No murmurs, gallops, or rubs. RESPIRATORY: Decreased breath sound bilaterally GASTROINTESTINAL: Abdomen is soft, nontender, nondistended. No guarding or rebound EXTREMITIES: No clubbing, cyanosis, or edema present in bilateral lower extremities. SKIN: Warm, dry, and intact. NEUROLOGIC: No apparent focal deficits. Motor 5 x 5 in all 4 extremity. Cranial nerves II-12 intact Psych-limited communication. Flat affect. Denies suicidal or homicidal thoughts or plan - Patient Status Disposition: Home, Self-Care - Discharge Instructions Follow Up With: Darien Santiago MD [Primary Care Provider] - 10/11/18 9:45 am
[2018-10-07] MEDS: Insulin DETEMIR 100 UNIT/ML X5UNITS SQ SCH (21:15)
[2018-10-08] MEDS: *HR* Heparin 5,000 UNIT/ML VIAL SQ SCH (05:56)
[2018-10-08 07:27] VITALS: BP 136/72
[2018-10-08] MEDS: Insulin LISPRO 300 UNITS/3 ML VIAL SQ SCH (07:29)
[2018-10-08] MEDS: Famotidine 20 MG TABLET PO SCH (07:30)
[2018-10-08] MEDS: Aspirin 81 MG TAB.CHEW PO SCH (07:30)
[2018-10-08] MEDS: Metoprolol XL (24 HR) Succ 50 MG TAB.ER.24H PO SCH (07:31)
[2018-10-08] MEDS: amLODIPine 5 MG TABLET PO SCH (07:31)
--- NOTE | 2018-10-08 08:04 | Internal Med Progress Note ---
Hospitalist Progress Note - Encounter Date of Encounter: 10/08/18 Time of Encounter: 08:00 - Subjective Interval History: No acute events overnight - Exam Vitals: Temp Pulse Resp BP Pulse Ox 98.5 F 98 16 136/72 97 10/08/18 07:24 10/08/18 07:24 10/08/18 07:24 10/08/18 07:24 10/08/18 07:24 Exam: GENERAL: No acute distress. Alert awake oriented 3. Son at bedside HEENT: Atraumatic and normocephalic. CARDIOVASCULAR: Regular rate and rhythm. S1 and S2 present. No murmurs, gallops, or rubs. RESPIRATORY: Decreased breath sound bilaterally GASTROINTESTINAL: Abdomen is soft, nontender, nondistended. No guarding or rebound EXTREMITIES: No clubbing, cyanosis, or edema present in bilateral lower extremities. SKIN: Warm, dry, and intact. NEUROLOGIC: No apparent focal deficits. Motor 5 x 5 in all 4 extremity. Cranial nerves II-12 intact Psych-limited communication. Flat affect. Denies suicidal or homicidal thoughts or plan - Assessment and Plan (1) DKA (diabetic ketoacidoses) Status: Acute Assessment and Plan: 58 year old male with a history of asthma, CAD, diabetes, hypertension, renal disease, hypercholesterolemia, and myocardial infarction. Recent medical history is significant for hospitalization at this facility on 09/19/2018 for management of DKA and NSTEMI, with discharge on 09/25/2018. He arrived at [facility] as a transfer from [facility], where he presented for evaluation of nausea and vomiting. Patient was found to be in DKA, with glucose >700. Laboratory studies were also significant for WBC 28, troponin 0.67, and lactic acid 6.9. Patient was started on an insulin gtt and fluid hydration per DKA protocol. He was assessed omn admission with DKA with blood sugar greater than 700 and elevated anion gap of 30. Was started on insulin drip and gap has closed. Continue diabetic diet and subcutaneous insulin with meals and at bedtime. He had persistent nausea for a couple of days for which he got an EGD which showed no acute findings. Nausea may be secondary to gastroparesis from diabetes. He is continue his home reglan. He was also assessed with sepsis secondary to pneumonia for which he completed a 5 day course of vanc ad zosyn His troponins were also elevated and peaked at 17. he was seen by cardiology and had a LHC done showing moderate CAD with no intervention on warranted. He was discharged on aspirin. BP meds were also adjusted on discharge. 35 minutes was spent discharging this patient Patient wasnt discharged overnight due to home and social issues. His son was able to pick him up this am (2) NSTEMI (non-ST elevated myocardial infarction) Status: Acute Assessment and Plan: Patient had troponins that peaked at 17 on admission and was initially on a heparin drip Cardiology following and plan for LHC once medically stable. Echo showed preser mateo EF with no wall motion abnormalities Left heart cath planned for today (3) Sepsis Status: Acute Assessment and Plan: Likely secondary to pneumonia Plan to complete course of vanc and zosyn tomorrow Resolved. vanc and zosyn d/c (4) Pneumonia Status: Acute Assessment and Plan: Continue on vanc and zosyn. Plan to complete 5 day course (5) Nausea & vomiting Status: Acute Assessment and Plan: Pt has persistent nausea and vomiting despie multiple antiemetics GI consulted and plan for EGD in am EGD done today and showed two non bleeding ulcers. Continue on protonix Zofran and phenergan (6) DVT prophylaxis Status: Acute Assessment and Plan: On heparin sc - Time Spent with Patient Total time spent is greater than 50% in coordination of care (as documented) at patient's floor/unit and/or counseling patient: Internal Medicine: Result - Labs CBC & Chem 7: 10/07/18 06:04 10/07/18 06:04 - ABG Interpretation ABG results: PT/INR, D-dimer PT 12.1 Seconds (9.4-12.1) 10/02/18 10:41 Consult Discharge Plan - Plan Referrals: Darien Santiago MD [Primary Care Provider] - 10/11/18 9:45 am Prescriptions: Aspirin 81 mg PO DAILY #60 tab.chew amLODIPine [Norvasc] 10 mg PO DAILY #60 tablet Lisinopril [Zestril] 10 mg PO DAILY #30 tablet _ (1) DKA (diabetic ketoacidoses) Qualifiers: Diabetes mellitus type: type 2 Diabetes mellitus complication detail: without coma Qualified Code(s): E11.10 - Type 2 diabetes mellitus with ketoacidosis without coma (3) Sepsis Qualifiers: Sepsis type: sepsis due to unspecified organism Qualified Code(s): A41.9 - Sepsis, unspecified organism (4) Pneumonia Qualifiers: Qualified Code(s): J18.9 - Pneumonia, unspecified organism (5) Nausea & vomiting Qualifiers: Vomiting type: unspecified Vomiting Intractability: non-intractable Qualified Code(s): R11.2 - Nausea with vomiting, unspecified
== END 2018-10-08 09:30 | disposition home or self-care (01) | DRG 871 ==
LOC: 2NNU → 3ANU 10-04 21:47
PROVIDERS: ADMIT Internal Medicine; ATTEND Internal Medicine
PROC: ENDOEBX (2018-10-05 13:45)

== ENCOUNTER 2020-01-17 09:15 | Inpatient (IN) ==
[2020-01-17] MEDS ORDERED: 0.9 % Sodium Chloride 1,000 ML IVC STA (10:26)
[2020-01-17] MEDS ORDERED: Naloxone 0.4 MG/ML INJ IVP PRN (13:49)
[2020-01-17] MEDS ORDERED: Dextrose Gel 15 GM/37.5 ML TUBE PO PRN ×2 (13:52)
[2020-01-17] MEDS ORDERED: D5% in Water 1,000 ML IVC PRN (13:52)
[2020-01-17] MEDS ORDERED: *HR* Dextrose 50 % in Water (Vial) 50 ML VIAL IVP PRN (13:52)
[2020-01-17] MEDS ORDERED: Perflutren Lipid Microsphere 1.3 ML in 0.9 % Sodium Chloride 8.7 ML IVP PRN (15:21)
[2020-01-17] MEDS ORDERED: *HR* Metoprolol 5 MG/5 ML VIAL IVP PRN (15:22)
[2020-01-17] MEDS: Insulin LISPRO 300 UNITS/3 ML VIAL SQ SCH ×2 (16:49→17:09)
[2020-01-17] MEDS: carvediloL 6.25 MG TABLET PO SCH ×2 (16:50→17:09)
[2020-01-17] MEDS ORDERED: carvediloL 6.25 MG TABLET PO SCH (17:00)
[2020-01-17] MEDS: Gabapentin 300 MG CAPSULE PO SCH ×2 (17:09→21:35)
[2020-01-17] MEDS: *HR* Heparin 5,000 UNIT/ML VIAL SQ SCH (17:10)
[2020-01-17] MEDS: 0.9 % Sodium Chloride 1,000 ML IVC SCH (17:10)
[2020-01-17 20:06] LABS: Amphetamine Screen,Urine Negative ng/mL (Cutoff=1000); Bacteria,Urine Few per hpf (None-Few); Barbiturate Screen,Urine Negative ng/mL (Cutoff=200); Benzodiazepines Screen,Urine Negative ng/mL (Cutoff=200); Bilirubin,Urine Negative (Negative); Blood,Urine Moderate (Negative); Cannabinoid Screen,Urine Negative ng/mL (Cutoff = 50); Clarity,Urine Clear (Clear); Cocaine Screen,Urine Negative ng/mL (Cutoff= 300); Color,Urine Colorless (Yellow); Glucose,Urine (UA) >=1000 mg/dL (Normal); Hyaline Casts,Urine Few per lpf (None Seen); Ketones,Urine 20 mg/dL (Negative); Leukocyte Esterase,Urine Negative (Negative); Mucus,Urine Few per lpf (None-Few); Nitrite,Urine Negative (Negative); Opiate Screen,Urine Negative ng/mL (Cutoff=300); PH,Urine 5.5 pH Units (5.0-8.0); Phencyclidine Screen,Urine Negative ng/mL (Cutoff=25); Protein,Urine Negative (Neg-Trace); Specific Gravity,Urine 1.011 (1.010-1.025); Urobilinogen,Urine Normal (Normal); WBC,Urine 0-3 per hpf (0-3)
[2020-01-17] MEDS ORDERED: Insulin LISPRO 300 UNITS/3 ML VIAL SQ SCH (21:00)
[2020-01-17] MEDS ORDERED: Insulin DETEMIR 100 UNIT/ML X5UNITS SQ ONE (21:36)
[2020-01-18 03:18] LABS: Basophils % 0.1 %; Eosinophils # 0.2 K/mcL (0.0-0.6); Hematocrit 33.8 % (37.5-50.1); Hemoglobin 11.4 g/dL (12.9-16.9); Immature Granulocytes % 0.4 % (0-4); Lymphocytes # 1.7 K/mcL (0.6-4.6); Mean Corpuscular HGB Conc 33.7 g/dL (31.6-35.5); Mean Corpuscular Hemoglobin 29.3 pg (28.0-33.3); Mean Corpuscular Volume 86.9 fL (83.0-100.0); Monocytes # 0.9 K/mcL (0.0-1.3); Monocytes % 11.2 %; Neutrophils # 5.1 K/mcL (1.6-8.9); Platelet Count 231 K/mcL (140-400); Red Blood Count 3.89 M/mcL (4.19-5.50); Red Cell Distribution Width 12.6 % (11.5-14.5); Segmented Neutrophils % 64.3 %; White Blood Count 7.9 K/mcL (4.3-11.1)
[2020-01-18 03:27] LABS: Albumin 3.3 g/dL (3.5-5.7); Albumin/Globulin Ratio 1.2 (1.1-2.2); Bilirubin,Total 0.8 mg/dL (0.3-1.0); Calcium 8.8 mg/dL (8.6-10.3); Globulin 2.7 g/dL (2.4-3.5); Magnesium 1.8 mg/dL (1.6-2.6); Phosphorous 4.2 mg/dL (2.7-4.5); Potassium 3.9 mEq/L (3.5-5.1)
[2020-01-18 03:45] LABS: Hepatitis B Surface Antigen Nonreactive (Nonreactive)
[2020-01-18 04:14] LABS: Hepatitis B Core IgM Nonreactive (Nonreactive); Hepatitis C Virus Antibody Nonreactive (Nonreactive)
[2020-01-18 04:16] LABS: Hepatitis A Antibody IgM Nonreactive (Nonreactive)
[2020-01-18] MEDS: *HR* Heparin 5,000 UNIT/ML VIAL SQ SCH ×2 (06:19→17:33)
[2020-01-18] MEDS: Insulin DETEMIR 100 UNIT/ML X5UNITS SQ SCH ×2 (10:29→20:49)
[2020-01-18] MEDS: Gabapentin 300 MG CAPSULE PO SCH ×3 (10:29→20:49)
[2020-01-18] MEDS: Insulin LISPRO 300 UNITS/3 ML VIAL SQ SCH ×6 (10:31→23:51)
[2020-01-18] MEDS: carvediloL 6.25 MG TABLET PO SCH ×3 (10:32→17:33)
[2020-01-18] MEDS: 0.9 % Sodium Chloride 1,000 ML IVC SCH (12:52)
[2020-01-18] MEDS ORDERED: Insulin DETEMIR 100 UNIT/ML X5UNITS SQ ONE (14:08)
[2020-01-19] MEDS: 0.9 % Sodium Chloride 1,000 ML IVC SCH ×3 (02:33→16:03)
[2020-01-19 02:44] LABS: White Blood Count 8.5 K/mcL (4.3-11.1)
[2020-01-19 02:45] LABS: Basophils % 0.1 %; Eosinophils # 0.2 K/mcL (0.0-0.6); Eosinophils % 2.5 %; Hematocrit 34.2 % (37.5-50.1); Hemoglobin 11.3 g/dL (12.9-16.9); Immature Granulocytes % 0.1 % (0-4); Lymphocytes # 1.7 K/mcL (0.6-4.6); Lymphocytes % 20.5 %; Mean Corpuscular Volume 87.9 fL (83.0-100.0); Mean Platelet Volume 10.7 fL (9.4-12.4); Monocytes % 11.2 %; Neutrophils # 5.5 K/mcL (1.6-8.9); Platelet Count 252 K/mcL (140-400); Red Blood Count 3.89 M/mcL (4.19-5.50); Red Cell Distribution Width 12.7 % (11.5-14.5); Segmented Neutrophils % 65.6 %
[2020-01-19] MEDS: Insulin LISPRO 300 UNITS/3 ML VIAL SQ SCH ×6 (03:01→23:03)
[2020-01-19 03:04] LABS: BUN/Creatinine Ratio 20 (6-26); Blood Urea Nitrogen 27 mg/dL (6-20); Calcium 9.1 mg/dL (8.6-10.3); Carbon Dioxide 25 mEq/L (23-29); Chloride 104 mEq/L (98-107); Creatine Kinase 138 Units/L (30-223); Glucose 205 mg/dL (70-105); Magnesium 1.9 mg/dL (1.6-2.6); Osmolality,Calculated 297 (280-300); Phosphorous 3.8 mg/dL (2.7-4.5); Potassium 3.6 mEq/L (3.5-5.1); Sodium 138 mEq/L (136-145); eGFR For African Americans > 60 (> 60); eGFR For Non-African Americans 56 (> 60)
[2020-01-19] MEDS: *HR* Heparin 5,000 UNIT/ML VIAL SQ SCH ×2 (05:19→17:15)
[2020-01-19] MEDS: Gabapentin 300 MG CAPSULE PO SCH ×3 (11:01→21:23)
[2020-01-19] MEDS: Insulin DETEMIR 100 UNIT/ML X5UNITS SQ SCH ×2 (11:01→21:23)
[2020-01-19] MEDS: carvediloL 6.25 MG TABLET PO SCH ×2 (11:02→17:15)
[2020-01-19 14:49] LABS: Adenovirus F 40/41 PCR Not detected (Not detect); Astrovirus PCR Not detected (Not detect); C.difficile Toxin A/B Gene PCR Not detected (Not detect); Campylobacter by PCR Not detected (Not detect); Cryptosporidium by PCR Not detected (Not detect); Cyclospora cayetanensis PCR Not detected (Not detect); E. coli O157 by PCR Not detected (Not detect); Entamoeba histolytica PCR Not detected (Not detect); Enteroaggregative E.coli(EAEC) Not detected (Not detect); Enteropathogenic E.coli(EPEC) Not detected (Not detect); Enterotoxigenic E.coli (ETEC) Not detected (Not detect); Giardia lamblia PCR Not detected (Not detect); Norovirus GI/GII PCR Not detected (Not detect); Plesiomonas shigelloides PCR Not detected (Not detect); Rotavirus A PCR Not detected (Not detect); Salmonella PCR Not detected (Not detect); Sapovirus PCR Not detected (Not detect); Shig/EnteroinvasiveE coli EIEC Not detected (Not detect); Shigalike tox-prod E coli STEC Not detected (Not detect); Vibrio PCR Not detected (Not detect); Vibrio cholerae PCR Not detected (Not detect); Yersinia enterocolitica PCR Not detected (Not detect)
[2020-01-20 01:35] LABS: Basophils % 0.3 %; Eosinophils # 0.3 K/mcL (0.0-0.6); Eosinophils % 3.4 %; Hemoglobin 10.9 g/dL (12.9-16.9); Immature Granulocytes % 0.3 % (0-4); Lymphocytes # 1.9 K/mcL (0.6-4.6); Lymphocytes % 25.1 %; Mean Corpuscular HGB Conc 32.1 g/dL (31.6-35.5); Mean Corpuscular Volume 87.4 fL (83.0-100.0); Mean Platelet Volume 10.4 fL (9.4-12.4); Monocytes # 0.9 K/mcL (0.0-1.3); Monocytes % 11.4 %; Neutrophils # 4.6 K/mcL (1.6-8.9); Platelet Count 282 K/mcL (140-400); Red Blood Count 3.89 M/mcL (4.19-5.50); Red Cell Distribution Width 12.5 % (11.5-14.5); Segmented Neutrophils % 59.5 %; White Blood Count 7.7 K/mcL (4.3-11.1)
[2020-01-20 01:54] LABS: BUN/Creatinine Ratio 15 (6-26); Blood Urea Nitrogen 17 mg/dL (6-20); Carbon Dioxide 28 mEq/L (23-29); Chloride 107 mEq/L (98-107); Glucose 60 mg/dL (70-105); Osmolality,Calculated 291 (280-300); Potassium 3.2 mEq/L (3.5-5.1); Sodium 141 mEq/L (136-145); eGFR For African Americans > 60 (> 60); eGFR For Non-African Americans > 60 (> 60)
[2020-01-20] MEDS: Insulin LISPRO 300 UNITS/3 ML VIAL SQ SCH ×5 (04:11→21:01)
[2020-01-20] MEDS: *HR* Heparin 5,000 UNIT/ML VIAL SQ SCH ×2 (05:01→17:59)
[2020-01-20] MEDS: 0.9 % Sodium Chloride 1,000 ML IVC SCH (05:04)
[2020-01-20] MEDS: Insulin DETEMIR 100 UNIT/ML X5UNITS SQ SCH ×2 (08:04→21:01)
[2020-01-20] MEDS: Gabapentin 300 MG CAPSULE PO SCH ×3 (08:10→21:00)
[2020-01-20] MEDS: carvediloL 6.25 MG TABLET PO SCH ×2 (08:11→16:11)
[2020-01-21] MEDS: Insulin LISPRO 300 UNITS/3 ML VIAL SQ SCH ×7 (00:33→23:25)
[2020-01-21 02:13] LABS: BUN/Creatinine Ratio 13 (6-26); Blood Urea Nitrogen 16 mg/dL (6-20); Calcium 9.2 mg/dL (8.6-10.3); Carbon Dioxide 31 mEq/L (23-29); Chloride 101 mEq/L (98-107); Glucose 166 mg/dL (70-105); Osmolality,Calculated 291 (280-300); Potassium 3.5 mEq/L (3.5-5.1); Sodium 138 mEq/L (136-145); eGFR For African Americans > 60 (> 60); eGFR For Non-African Americans > 60 (> 60)
[2020-01-21] MEDS: *HR* Heparin 5,000 UNIT/ML VIAL SQ SCH ×2 (05:32→17:28)
[2020-01-21] MEDS: Gabapentin 300 MG CAPSULE PO SCH ×3 (08:26→19:58)
[2020-01-21] MEDS: Insulin DETEMIR 100 UNIT/ML X5UNITS SQ SCH ×2 (08:26→19:57)
[2020-01-21] MEDS: carvediloL 6.25 MG TABLET PO SCH ×2 (08:26→17:27)
[2020-01-22] MEDS: Insulin LISPRO 300 UNITS/3 ML VIAL SQ SCH ×6 (03:24→23:29)
[2020-01-22] MEDS: *HR* Heparin 5,000 UNIT/ML VIAL SQ SCH ×2 (05:09→16:28)
[2020-01-22 06:07] LABS: BUN/Creatinine Ratio 14 (6-26); Blood Urea Nitrogen 16 mg/dL (6-20); Calcium 9.2 mg/dL (8.6-10.3); Carbon Dioxide 30 mEq/L (23-29); Chloride 98 mEq/L (98-107); Glucose 103 mg/dL (70-105); Osmolality,Calculated 285 (280-300); Potassium 3.7 mEq/L (3.5-5.1); Sodium 137 mEq/L (136-145); eGFR For African Americans > 60 (> 60); eGFR For Non-African Americans > 60 (> 60)
[2020-01-22] MEDS: Gabapentin 300 MG CAPSULE PO SCH ×3 (08:02→20:29)
[2020-01-22] MEDS: carvediloL 6.25 MG TABLET PO SCH ×2 (08:03→16:28)
[2020-01-22] MEDS: Insulin DETEMIR 100 UNIT/ML X5UNITS SQ SCH ×2 (08:03→20:29)
[2020-01-22] MEDS: lisinopriL 10 MG TABLET PO SCH (12:47)
[2020-01-23] MEDS: Insulin LISPRO 300 UNITS/3 ML VIAL SQ SCH ×5 (04:01→20:30)
[2020-01-23] MEDS: *HR* Heparin 5,000 UNIT/ML VIAL SQ SCH ×2 (04:56→17:15)
[2020-01-23] MEDS: lisinopriL 10 MG TABLET PO SCH (08:15)
[2020-01-23] MEDS: Gabapentin 300 MG CAPSULE PO SCH ×3 (08:15→20:30)
[2020-01-23] MEDS: carvediloL 6.25 MG TABLET PO SCH ×2 (08:15→17:14)
[2020-01-23] MEDS: Insulin DETEMIR 100 UNIT/ML X5UNITS SQ SCH ×2 (08:24→20:30)
[2020-01-23] MEDS ORDERED: 0.9 % Sodium Chloride 500 ML IV ONE (15:13)
[2020-01-23] MEDS ORDERED: Insulin DETEMIR 100 UNIT/ML X5UNITS SQ ONE (23:22)
[2020-01-24] MEDS: Insulin LISPRO 300 UNITS/3 ML VIAL SQ SCH ×7 (00:32→23:29)
[2020-01-24] MEDS: *HR* Heparin 5,000 UNIT/ML VIAL SQ SCH ×2 (04:34→17:59)
[2020-01-24] MEDS: Gabapentin 300 MG CAPSULE PO SCH ×3 (08:51→20:52)
[2020-01-24] MEDS: carvediloL 6.25 MG TABLET PO SCH ×2 (08:52→20:52)
[2020-01-24] MEDS: lisinopriL 10 MG TABLET PO SCH (08:52)
[2020-01-24] MEDS: Insulin DETEMIR 100 UNIT/ML X5UNITS SQ SCH ×2 (08:58→20:53)
[2020-01-24 09:00] LABS: Calcium 9.2 mg/dL (8.6-10.3); Potassium 4.2 mEq/L (3.5-5.1)
[2020-01-24] MEDS: 0.9 % Sodium Chloride 1,000 ML IVC SCH (18:05)
[2020-01-25] MEDS: Insulin LISPRO 300 UNITS/3 ML VIAL SQ SCH ×6 (03:42→23:12)
[2020-01-25] MEDS: 0.9 % Sodium Chloride 1,000 ML IVC SCH (05:29)
[2020-01-25] MEDS: *HR* Heparin 5,000 UNIT/ML VIAL SQ SCH ×2 (05:30→16:08)
[2020-01-25] MEDS: Gabapentin 300 MG CAPSULE PO SCH ×3 (07:47→19:58)
[2020-01-25] MEDS: carvediloL 6.25 MG TABLET PO SCH ×2 (07:47→16:08)
[2020-01-25] MEDS: lisinopriL 10 MG TABLET PO SCH (07:47)
[2020-01-25] MEDS: Insulin DETEMIR 100 UNIT/ML X5UNITS SQ SCH ×2 (07:55→19:57)
[2020-01-25 09:37] LABS: Calcium 9.6 mg/dL (8.6-10.3); Potassium 4.6 mEq/L (3.5-5.1)
[2020-01-25 10:49] LABS: Hematocrit 37.3 % (37.5-50.1); Hemoglobin 11.5 g/dL (12.9-16.9); Mean Corpuscular HGB Conc 30.8 g/dL (31.6-35.5); Mean Corpuscular Hemoglobin 27.6 pg (28.0-33.3); Mean Corpuscular Volume 89.7 fL (83.0-100.0); Mean Platelet Volume 10.2 fL (9.4-12.4); Platelet Count 411 K/mcL (140-400); Red Blood Count 4.16 M/mcL (4.19-5.50); Red Cell Distribution Width 12.3 % (11.5-14.5); White Blood Count 10.2 K/mcL (4.3-11.1)
[2020-01-26 01:50] LABS: Hematocrit 40.8 % (37.5-50.1); Hemoglobin 12.6 g/dL (12.9-16.9); Mean Corpuscular HGB Conc 30.9 g/dL (31.6-35.5); Mean Corpuscular Hemoglobin 27.8 pg (28.0-33.3); Mean Corpuscular Volume 89.9 fL (83.0-100.0); Mean Platelet Volume 10.2 fL (9.4-12.4); Platelet Count 468 K/mcL (140-400); Red Blood Count 4.54 M/mcL (4.19-5.50); Red Cell Distribution Width 12.3 % (11.5-14.5); White Blood Count 8.6 K/mcL (4.3-11.1)
[2020-01-26 02:08] LABS: Albumin 3.4 g/dL (3.5-5.7); Phosphorous 4.1 mg/dL (2.7-4.5); Uric Acid 8.1 mg/dL (2.3-7.6)
[2020-01-26 02:10] LABS: BUN/Creatinine Ratio 30 (6-26); Blood Urea Nitrogen 43 mg/dL (6-20); Calcium 9.3 mg/dL (8.6-10.3); Carbon Dioxide 28 mEq/L (23-29); Chloride 102 mEq/L (98-107); Glucose 107 mg/dL (70-105); Osmolality,Calculated 297 (280-300); Sodium 138 mEq/L (136-145); eGFR For African Americans > 60 (> 60); eGFR For Non-African Americans 52 (> 60)
[2020-01-26] MEDS: Insulin LISPRO 300 UNITS/3 ML VIAL SQ SCH ×5 (03:32→20:04)
[2020-01-26] MEDS: 0.9 % Sodium Chloride 1,000 ML IVC SCH ×3 (03:34→18:27)
[2020-01-26] MEDS: *HR* Heparin 5,000 UNIT/ML VIAL SQ SCH ×2 (05:20→18:17)
[2020-01-26] MEDS ORDERED: Nitroglycerin 0.4 MG TAB.SUBL SL PRN (07:43)
[2020-01-26] MEDS: carvediloL 6.25 MG TABLET PO SCH ×2 (08:21→18:18)
[2020-01-26] MEDS: Gabapentin 300 MG CAPSULE PO SCH ×3 (08:21→20:03)
[2020-01-26] MEDS: Insulin DETEMIR 100 UNIT/ML X5UNITS SQ SCH ×2 (09:12→20:03)
[2020-01-27] MEDS: Insulin LISPRO 300 UNITS/3 ML VIAL SQ SCH ×4 (00:15→12:12)
[2020-01-27] MEDS: *HR* Heparin 5,000 UNIT/ML VIAL SQ SCH (05:13)
[2020-01-27] MEDS: Gabapentin 300 MG CAPSULE PO SCH ×2 (08:03→15:21)
[2020-01-27] MEDS: carvediloL 6.25 MG TABLET PO SCH (08:03)
[2020-01-27] MEDS: Insulin DETEMIR 100 UNIT/ML X5UNITS SQ SCH (08:13)
[2020-01-27] MEDS: 0.9 % Sodium Chloride 1,000 ML IVC SCH (08:13)
[2020-01-27 12:12] VITALS: BP 148/81
[2020-01-27 12:14] LABS: Hemoglobin 11.6 g/dL (12.9-16.9); Mean Corpuscular HGB Conc 31.4 g/dL (31.6-35.5); Mean Corpuscular Hemoglobin 27.8 pg (28.0-33.3); Mean Corpuscular Volume 88.7 fL (83.0-100.0); Mean Platelet Volume 10.2 fL (9.4-12.4); Platelet Count 424 K/mcL (140-400); Red Blood Count 4.17 M/mcL (4.19-5.50); Red Cell Distribution Width 12.1 % (11.5-14.5); White Blood Count 7.2 K/mcL (4.3-11.1)
[2020-01-27 12:38] LABS: BUN/Creatinine Ratio 21 (6-26); Blood Urea Nitrogen 28 mg/dL (6-20); Calcium 8.9 mg/dL (8.6-10.3); Carbon Dioxide 27 mEq/L (23-29); Chloride 104 mEq/L (98-107); Glucose 306 mg/dL (70-105); Osmolality,Calculated 299 (280-300); Potassium 4.8 mEq/L (3.5-5.1); Sodium 136 mEq/L (136-145); eGFR For African Americans > 60 (> 60); eGFR For Non-African Americans 56 (> 60)
== END 2020-01-27 14:45 | disposition critical access hospital (66) | DRG 565 ==
LOC: 3BNU 09:15 → EMEROOARM 09:15 → SUATTDRO 13:57 → 3BNU 14:45
PROVIDERS: ADMIT Internal Medicine; ATTEND Nurse Practitioner Adult Health

== ENCOUNTER 2020-02-18 18:48 | Inpatient (IN) ==
[~2020-02-18 18:48] MED LIST: *HR* Etomidate 40 MG/20 ML VIAL IVP ONE; *HR* Rocuronium Bromide 50 MG/5 ML VIAL IVP ONE
[2020-02-18] MEDS ORDERED: Calcium Gluconate 1gm/50mL 1 GM/50 ML BAG IVPB ONE ×2 (18:54→19:47)
[2020-02-18] MEDS ORDERED: Calcium Gluconate 1gm/50mL BAG IVPB ONE ×2 (19:02→19:50)
[2020-02-18] MEDS ORDERED: Piperacillin/Tazobactam 3.375 GM in Water for inj. (sterile) 20 ML IVP ONE (19:06)
[2020-02-18] MEDS ORDERED: *HR* Norepinephrine 4 MG/4 ML VIAL IVC ONE (19:18)
[2020-02-18] MEDS ORDERED: 0.9 % Sodium Chloride 250 ML ONE (19:18)
[2020-02-18 19:19] LABS: ABG Base Excess -29 mEq/L (-2 to 3); ABG HCO3 4 mEq/L (21-27); ABG PCO2 24 mmHg (35-45); ABG PH 6.85 pH Units (7.32-7.45); ABG PO2 > 630 mmHg (85-104); ABG TCO2 < 5 mEq/L (20-26); Blood Gas VT 450 cc
[2020-02-18] MEDS ORDERED: Sodium Bicarbonate 150 MEQ in D5% in Water 1,000 ML IVC SCH (19:30)
[2020-02-18] MEDS: Norepinephrine 4 MG/254 ML IV.SOLN IVC SCH (19:40)
[2020-02-18 19:51] LABS: Troponin I 0.08 ng/mL (< 0.04)
[2020-02-18] MEDS: Ringers Solution, Lactated 2,000 ML IVC ONE ×2 (19:51→20:06)
[2020-02-18 20:06] LABS: Acetaminophen < 10 mcg/mL (10-20); Alanine Aminotransferase 16 Units/L (7-52); Albumin/Globulin Ratio 1.5 (1.1-2.2); Alkaline Phosphatase 161 Units/L (34-104); Aspartate Amino Transferase 11 Units/L (13-39); BUN/Creatinine Ratio 15 (6-26); Bilirubin,Direct 0.1 mg/dL (0.0-0.2); Bilirubin,Indirect 0.3 mg/dL (0.0-1.0); Bilirubin,Total 0.4 mg/dL (0.3-1.0); Blood Urea Nitrogen 62 mg/dL (6-20); Calcium 8.8 mg/dL (8.6-10.3); Carbon Dioxide < 4 mEq/L (23-29); Chloride 83 mEq/L (98-107); Creatine Kinase 145 Units/L (30-223); Ethanol < 10 mg/dL (Less than 10); Globulin 2.6 g/dL (2.4-3.5); Lipase 18 Units/L (11-82); Magnesium 3.3 mg/dL (1.6-2.6); Potassium 8.2 mEq/L (3.5-5.1); Salicylate < 2.5 mg/dL (15.0-30.0); Sodium 133 mEq/L (136-145); Total Protein 6.6 g/dL (6.4-8.9); eGFR For African Americans 18 (> 60); eGFR For Non-African Americans 15 (> 60)
[2020-02-18] MEDS ORDERED: Albuterol 2.5 MG/3 ML NEBULIZER IH ONE (20:06)
[2020-02-18 20:21] LABS: Hematocrit 45.2 % (37.5-50.1); Hemoglobin 11.8 g/dL (12.9-16.9); Mean Corpuscular HGB Conc 26.1 g/dL (31.6-35.5); Mean Corpuscular Hemoglobin 28.2 pg (28.0-33.3); Mean Corpuscular Volume 107.9 fL (83.0-100.0); Mean Platelet Volume 11.2 fL (9.4-12.4); Platelet Count 370 K/mcL (140-400); Red Blood Count 4.19 M/mcL (4.19-5.50); Red Cell Distribution Width 12.9 % (11.5-14.5)
[2020-02-18 20:22] LABS: Osmolality,Calculated 372 (280-300)
[2020-02-18 20:23] LABS: Glucose 1508 mg/dL (70-105)
[2020-02-18] MEDS ORDERED: Vancomycin 1,500 MG/265 ML IV.SOLN IVPB ONE (20:35)
[2020-02-18] MEDS: Insulin Human Regular 100 UNIT in 0.9 % Sodium Chloride 100 ML IVC SCH (20:42)
[2020-02-18 20:45] LABS: Lymphocytes # 7.4 K/mcL (0.6-4.6); Monocytes # 2.8 K/mcL (0.0-1.3)
[2020-02-18] MEDS ORDERED: Ringers Solution, Lactated 1,000 ML IVC ONE (20:45)
[2020-02-18 20:46] LABS: Acanthocytes 3+ (Not Present); Hypochromasia Present (Not Present); Ovalocytes 1+ (Not Present)
[2020-02-18] MEDS ORDERED: Ringers Solution, Lactated 1,000 ML ONE (20:46)
[2020-02-18 20:47] LABS: Platelet Estimate Normal (Normal)
[2020-02-18 20:58] LABS: Adenovirus Not Detected (Not Detect); Bordetella Pertussis Not Detected (Not Detect); Chlamydophila pneumoniae Not Detected (Not Detect); Coronavirus 229E Not Detected (Not Detect); Coronavirus HKU1 Not Detected (Not Detect); Coronavirus NL63 Not Detected (Not Detect); Coronavirus OC43 Not Detected (Not Detect); Human Metapneumovirus Not Detected (Not Detect); Human Rhinovirus/Enterovirus Not Detected (Not Detect); Influenza A Subtype 2009 H1 Not Detected (Not Detect); Influenza B Not Detected (Not Detect); Mycoplasma pneumoniae Not Detected (Not Detect); Parainfluenza Virus 1 Not Detected (Not Detect); Parainfluenza Virus 2 Not Detected (Not Detect); Parainfluenza Virus 3 Not Detected (Not Detect); Parainfluenza Virus 4 Not Detected (Not Detect); Respiratory Syncytial Virus Not Detected (Not Detect); SARS-CoV-2 Not Detected (Not Detect)
[2020-02-18] MEDS ORDERED: Ringers Solution, Lactated 1,000 ML IVC SCH (21:30)
[2020-02-18] MEDS ORDERED: Naloxone 0.4 MG/ML INJ IVP PRN (22:14)
[2020-02-18 23:00] LABS: Phosphorous 11.8 mg/dL (2.7-4.5)
[2020-02-18 23:01] LABS: Albumin 3.3 g/dL (3.5-5.7); Albumin/Globulin Ratio 1.5 (1.1-2.2); Bilirubin,Total 0.6 mg/dL (0.3-1.0); Calcium 7.8 mg/dL (8.6-10.3); Globulin 2.2 g/dL (2.4-3.5); Potassium 5.3 mEq/L (3.5-5.1); Total Protein 5.5 g/dL (6.4-8.9)
[2020-02-18] MEDS ORDERED: *HR* Dextrose 50 % in Water (Vial) 50 ML VIAL IVP PRN (23:04)
[2020-02-18] MEDS ORDERED: Insulin Regular, Human 100 UNIT/ML IV PRN (23:04)
[2020-02-18] MEDS: Midazolam HCl 50 MG/100 ML IV.SOLN IVC SCH (23:30)
[2020-02-18] MEDS: FentaNYL (PF) 1,000 MCG/100 ML IV.SOLN IVC SCH (23:30)
[2020-02-18 23:47] LABS: ABG Base Excess -20 mEq/L (-2 to 3); ABG HCO3 7 mEq/L (21-27); ABG Oxygen Saturation 93 % (95-98); ABG PCO2 22 mmHg (35-45); ABG PH 7.13 pH Units (7.32-7.45); ABG PO2 85 mmHg (85-104); ABG TCO2 8 mEq/L (20-26); Blood Gas VT 450 cc
[2020-02-19] MEDS ORDERED: Sodium Bicarbonate 75 MEQ in D5% in Water 1,000 ML IVC SCH (00:15)
[2020-02-19 00:25] LABS: Triiodothyronine (T3) Free 2.65 pg/mL (2.50-3.90)
[2020-02-19] MEDS ORDERED: Calcium Gluconate 1gm/50mL 1 GM/50 ML BAG IVPB ONE (00:50)
[2020-02-19] MEDS: Vasopressin 40 UNIT in D5% in Water 100 ML IVC SCH ×2 (01:33→05:53)
[2020-02-19 01:34] LABS: Troponin I 0.1 ng/mL (< 0.04)
[2020-02-19] MEDS ORDERED: Vancomycin 1 EACH in 0.9 % Sodium Chloride 250 ML IVPB PRN (02:00)
[2020-02-19] MEDS: Insulin Human Regular 100 UNIT in 0.9 % Sodium Chloride 100 ML IVC SCH ×3 (02:20→12:56)
[2020-02-19 02:37] LABS: Prothrombin Time 11.4 Seconds (9.4-12.1)
[2020-02-19 02:49] LABS: Basophils % 0.3 %; Hemoglobin 11.3 g/dL (12.9-16.9)
[2020-02-19 03:10] LABS: Basophils # 0.1 K/mcL (0.0-0.2); Hematocrit 40.3 % (37.5-50.1); Immature Granulocytes % 4.1 % (0-4); Lymphocytes # 1.9 K/mcL (0.6-4.6); Lymphocytes % 5.4 %; Mean Corpuscular Hemoglobin 27.6 pg (28.0-33.3); Mean Corpuscular Volume 98.5 fL (83.0-100.0); Mean Platelet Volume 11.4 fL (9.4-12.4); Monocytes # 1.4 K/mcL (0.0-1.3); Platelet Count 292 K/mcL (140-400); Red Blood Count 4.09 M/mcL (4.19-5.50); Red Cell Distribution Width 12.8 % (11.5-14.5); Segmented Neutrophils % 86.2 %
[2020-02-19 03:21] LABS: Albumin 3.1 g/dL (3.5-5.7); Albumin/Globulin Ratio 1.5 (1.1-2.2); Bilirubin,Total 0.5 mg/dL (0.3-1.0); Calcium 8.3 mg/dL (8.6-10.3); Globulin 2.1 g/dL (2.4-3.5); Potassium 2.9 mEq/L (3.5-5.1); Total Protein 5.2 g/dL (6.4-8.9)
[2020-02-19 03:25] LABS: Bilirubin,Urine Negative (Negative); Blood,Urine Small (Negative); Clarity,Urine Clear (Clear); Color,Urine Light-Yellow (Yellow); Glucose,Urine (UA) >=1000 mg/dL (Normal); Ketones,Urine 80 mg/dL (Negative); Leukocyte Esterase,Urine Negative (Negative); Mucus,Urine Few per lpf (None-Few); Nitrite,Urine Negative (Negative); Protein,Urine Trace mg/dL (Neg-Trace); RBC,Urine 0-3 per hpf (0-3); Specific Gravity,Urine 1.021 (1.010-1.025); Squamous Epithelial Cell,Urine Few per hpf (None-Few); Urobilinogen,Urine Normal (Normal); WBC,Urine 0-3 per hpf (0-3)
[2020-02-19 03:27] LABS: Neutrophils # 29.7 K/mcL (1.6-8.9)
[2020-02-19 03:29] LABS: Amphetamine Screen,Urine Negative ng/mL (Cutoff=1000); Barbiturate Screen,Urine Negative ng/mL (Cutoff=200); Benzodiazepines Screen,Urine Positive ng/mL (Cutoff=200); Cannabinoid Screen,Urine Negative ng/mL (Cutoff = 50); Cocaine Screen,Urine Negative ng/mL (Cutoff= 300); Opiate Screen,Urine Negative ng/mL (Cutoff=300); Phencyclidine Screen,Urine Negative ng/mL (Cutoff=25)
[2020-02-19 03:31] LABS: White Blood Count 34.5 K/mcL (4.3-11.1)
[2020-02-19] MEDS: Potassium Chloride 40 MEQ/200 ML BAG IVPB PRN ×6 (03:58→22:00)
[2020-02-19 04:18] LABS: Hypochromasia Present (Not Present); Platelet Estimate Normal (Normal); Poikilocytosis 1+ (Not Present)
[2020-02-19] MEDS: Norepinephrine 4 MG/254 ML IV.SOLN IVC SCH (04:30)
[2020-02-19] MEDS: Insulin Human Regular 250 UNIT in 0.9 % Sodium Chloride 250 ML IVC SCH ×2 (04:30→09:30)
[2020-02-19 04:52] LABS: ABG Base Excess -13 mEq/L (-2 to 3); ABG HCO3 10 mEq/L (21-27); ABG Oxygen Saturation 98 % (95-98); ABG PCO2 16 mmHg (35-45); ABG PH 7.39 pH Units (7.32-7.45); ABG PO2 103 mmHg (85-104); ABG TCO2 10 mEq/L (20-26); Blood Gas VT 450 cc
[2020-02-19 05:12] LABS: Lymphocytes % 4.7 %; Monocytes % 4.7 %; Segmented Neutrophils % 86.9 %
[2020-02-19 05:13] LABS: Basophils # 0.1 K/mcL (0.0-0.2); Basophils % 0.3 %; Hematocrit 37.4 % (37.5-50.1); Hemoglobin 11.4 g/dL (12.9-16.9); Immature Granulocytes % 3.4 % (0-4); Lymphocytes # 1.4 K/mcL (0.6-4.6); Mean Corpuscular HGB Conc 30.5 g/dL (31.6-35.5); Mean Corpuscular Hemoglobin 28.4 pg (28.0-33.3); Mean Corpuscular Volume 93.3 fL (83.0-100.0); Mean Platelet Volume 11.3 fL (9.4-12.4); Monocytes # 1.4 K/mcL (0.0-1.3); Neutrophils # 25.5 K/mcL (1.6-8.9); Platelet Count 269 K/mcL (140-400); Red Blood Count 4.01 M/mcL (4.19-5.50); Red Cell Distribution Width 12.9 % (11.5-14.5); White Blood Count 29.3 K/mcL (4.3-11.1)
[2020-02-19] MEDS ORDERED: *HR* Heparin 5,000 UNIT/ML VIAL IVP ONE (05:45)
[2020-02-19] MEDS ORDERED: *HR* Heparin 5,000 UNIT/ML VIAL IVP PRN ×2 (05:45)
[2020-02-19] MEDS: Sodium Bicarbonate 150 MEQ in D5% in Water 1,000 ML IVC SCH ×2 (05:54→14:25)
[2020-02-19 05:58] LABS: Magnesium 2.3 mg/dL (1.6-2.6)
[2020-02-19 05:59] LABS: Calcium 8.2 mg/dL (8.6-10.3); Potassium 2.7 mEq/L (3.5-5.1)
[2020-02-19 06:00] LABS: Troponin I 0.22 ng/mL (< 0.04)
[2020-02-19] MEDS ORDERED: *HR* Heparin 5,000 UNIT/ML VIAL SQ SCH (06:00)
[2020-02-19] MEDS ORDERED: Doxycycline 100 MG in 0.9 % Sodium Chloride Mini Bag 100 ML IVPB SCH (06:00)
[2020-02-19 06:13] LABS: Platelet Estimate Normal (Normal)
[2020-02-19] MEDS: SODIUM CHLORIDE 0.9% IVC SCH ×2 (07:15→10:15)
[2020-02-19] MEDS: INSULIN HUMAN REGULAR IVC SCH ×2 (07:15→10:15)
[2020-02-19 07:23] LABS: Calcium 8.2 mg/dL (8.6-10.3); Potassium 2.7 mEq/L (3.5-5.1)
[2020-02-19 07:43] LABS: Albumin 3.1 g/dL (3.5-5.7); Albumin/Globulin Ratio 1.6 (1.1-2.2); Bilirubin,Direct 0.1 mg/dL (0.0-0.2); Bilirubin,Indirect 0.3 mg/dL (0.0-1.0); Bilirubin,Total 0.4 mg/dL (0.3-1.0); Total Protein 5.1 g/dL (6.4-8.9)
[2020-02-19] MEDS ORDERED: Piperacillin/Tazobactam 3.375 GM in 0.9 % Sodium Chloride Mini Bag 100 ML IVPB SCH ×2 (08:00→09:00)
[2020-02-19] MEDS ORDERED: 0.9 % Sodium Chloride 1,000 ML IV ONE (08:15)
[2020-02-19] MEDS: Midazolam HCl 50 MG/100 ML IV.SOLN IVC SCH (08:20)
[2020-02-19] MEDS: Heparin 25,000UNIT/250ML 1/2NS 25,000 UNIT/250 ML IV.SOLN IVC SCH (08:30)
[2020-02-19] MEDS: Norepinephrine 8 MG in 0.9 % Sodium Chloride 250 ML IVC SCH ×2 (08:35→21:51)
[2020-02-19] MEDS ORDERED: 0.9 % Sodium Chloride 1,000 ML ONE (08:59)
[2020-02-19 09:01] LABS: Calcium 8.4 mg/dL (8.6-10.3); Potassium 2.8 mEq/L (3.5-5.1)
[2020-02-19] MEDS ORDERED: D5% in 0.45% NACL w KCl 20 MEQ/1,000 ML MLS IVC PRN (09:16)
[2020-02-19] MEDS ORDERED: Insulin Regular, Human 100 UNIT/ML IV PRN (09:16)
[2020-02-19] MEDS ORDERED: D5% in 0.45% NACL 1,000 ML IVC PRN (09:16)
[2020-02-19] MEDS ORDERED: Perflutren Lipid Microsphere 1.3 ML in 0.9 % Sodium Chloride 8.7 ML IVP PRN (09:27)
[2020-02-19] MEDS ORDERED: Insulin Human Regular 100 UNIT in 0.9 % Sodium Chloride 100 ML IVC SCH (09:30)
[2020-02-19] MEDS ORDERED: Ampicillin/Sulbactam 3,000 MG in 0.9 % Sodium Chloride Mini Bag 100 ML IVPB SCH (10:00)
[2020-02-19] MEDS: 0.9 % Sodium Chloride w KCl 20 MEQ/1,000 ML MLS IVC SCH ×7 (10:18→23:27)
[2020-02-19] MEDS: FentaNYL (PF) 1,000 MCG/100 ML IV.SOLN IVC SCH ×2 (10:43→20:15)
[2020-02-19 12:59] LABS: Calcium 7.6 mg/dL (8.6-10.3); Potassium 2.8 mEq/L (3.5-5.1)
[2020-02-19] MEDS ORDERED: *HR* Dextrose 50 % in Water (Vial) 50 ML VIAL IVP ONE (14:10)
[2020-02-19 14:59] LABS: BUN/Creatinine Ratio 15 (6-26); Blood Urea Nitrogen 45 mg/dL (6-20); Carbon Dioxide 27 mEq/L (23-29); Chloride 115 mEq/L (98-107); Glucose 287 mg/dL (70-105); Magnesium 1.7 mg/dL (1.6-2.6); Osmolality,Calculated 336 (280-300); Phosphorous < 1.0 mg/dL (2.7-4.5); Potassium 3.1 mEq/L (3.5-5.1); Sodium 152 mEq/L (136-145); eGFR For African Americans 26 (> 60); eGFR For Non-African Americans 22 (> 60)
[2020-02-19] MEDS ORDERED: Potassium Phosphate 44 MEQ in 0.9 % Sodium Chloride 250 ML IVPB ONE ×2 (15:00→15:43)
[2020-02-19 15:10] LABS: ABG Base Excess 2 mEq/L (-2 to 3); ABG HCO3 28 mEq/L (21-27); ABG Oxygen Saturation 97 % (95-98); ABG PCO2 47 mmHg (35-45); ABG PH 7.38 pH Units (7.32-7.45); ABG PO2 98 mmHg (85-104); ABG TCO2 29 mEq/L (20-26); Blood Gas Modality ASSIST CONTROL; Blood Gas VT 450 cc
[2020-02-19] MEDS ORDERED: *HR* Dextrose 50 % in Water (Vial) 50 ML VIAL ONE (15:39)
[2020-02-19] MEDS ORDERED: D10% in Water 500 ML ONE (15:43)
[2020-02-19] MEDS ORDERED: *HR* Dextrose 50 % in Water (Syg) 50 ML SYRINGE IVP ONE (15:44)
[2020-02-19] MEDS ORDERED: *HR* Dextrose 50 % in Water (Vial) 50 ML VIAL IVP PRN (16:13)
[2020-02-19] MEDS: WATER IVC SCH ×3 (16:30→22:35)
[2020-02-19] MEDS: DEXTROSE 50% IVC SCH ×3 (16:30→22:35)
[2020-02-19] MEDS: D10 IVC SCH ×3 (16:30→22:35)
[2020-02-19] MEDS ORDERED: Calcium Chloride 1,000 MG in 0.9 % Sodium Chloride 100 ML IVPB ONE (17:08)
[2020-02-19 17:14] LABS: Calcium 7.7 mg/dL (8.6-10.3); Potassium 3.5 mEq/L (3.5-5.1)
[2020-02-19] MEDS: Ampicillin/Sulbactam 3,000 MG in 0.9 % Sodium Chloride Mini Bag 100 ML IVPB SCH (17:23)
[2020-02-19 17:41] LABS: Troponin I 1.24 ng/mL (< 0.04)
[2020-02-19] MEDS ORDERED: Artificial Tears SOLN 15 ML BOTTLE BOTH EYES PRN (17:41)
[2020-02-19] MEDS ORDERED: Potassium Phosphate 44 MEQ in 0.9 % Sodium Chloride 250 ML IVPB PRN (17:44)
[2020-02-19] MEDS: Artificial Tears SOLN 15 ML BOTTLE BOTH EYES SCH (20:16)
[2020-02-19] MEDS: Chlorhexidine Rinse 15 ML MOUTHWASH MM SCH (20:16)
[2020-02-19 20:32] LABS: VBG Ionized Calcium 1.17 mmol/L (1.15-1.35)
[2020-02-19 20:48] LABS: Calcium 8.1 mg/dL (8.6-10.3); Potassium 3.3 mEq/L (3.5-5.1)
[2020-02-19 22:22] LABS: Troponin I 1.6 ng/mL (< 0.04)
[2020-02-20] MEDS: Artificial Tears SOLN 15 ML BOTTLE BOTH EYES SCH ×7 (00:04→23:32)
[2020-02-20 00:23] LABS: VBG Ionized Calcium 1.11 mmol/L (1.15-1.35)
[2020-02-20 00:41] LABS: Phosphorous 2.7 mg/dL (2.7-4.5)
[2020-02-20] MEDS: D10 IVC SCH ×5 (01:13→10:49)
[2020-02-20] MEDS: DEXTROSE 50% IVC SCH ×5 (01:13→10:49)
[2020-02-20] MEDS: WATER IVC SCH ×5 (01:13→10:49)
[2020-02-20 01:43] LABS: Magnesium 1.8 mg/dL (1.6-2.6); Potassium 3.8 mEq/L (3.5-5.1)
[2020-02-20 04:16] LABS: ABG Base Excess -1 mEq/L (-2 to 3); ABG HCO3 26 mEq/L (21-27); ABG Oxygen Saturation 97 % (95-98); ABG PCO2 55 mmHg (35-45); ABG PH 7.29 pH Units (7.32-7.45); ABG PO2 101 mmHg (85-104); ABG TCO2 28 mEq/L (20-26); Blood Gas Modality ASSIST CONTROL; Blood Gas VT 450 cc
[2020-02-20 04:31] LABS: VBG Ionized Calcium 1.09 mmol/L (1.15-1.35)
[2020-02-20 04:36] LABS: Basophils % 0.2 %
[2020-02-20 04:38] LABS: Basophils # 0.1 K/mcL (0.0-0.2); Hematocrit 34.9 % (37.5-50.1); Hemoglobin 11.5 g/dL (12.9-16.9); Immature Granulocytes % 0.6 % (0-4); Lymphocytes # 1.7 K/mcL (0.6-4.6); Lymphocytes % 6.6 %; Mean Corpuscular Hemoglobin 28.6 pg (28.0-33.3); Mean Corpuscular Volume 86.8 fL (83.0-100.0); Mean Platelet Volume 10.6 fL (9.4-12.4); Monocytes # 1.5 K/mcL (0.0-1.3); Monocytes % 5.6 %; Neutrophils # 22.9 K/mcL (1.6-8.9); Platelet Count 182 K/mcL (140-400); Red Blood Count 4.02 M/mcL (4.19-5.50); Red Cell Distribution Width 12.9 % (11.5-14.5); White Blood Count 26.3 K/mcL (4.3-11.1)
[2020-02-20] MEDS: FentaNYL (PF) 1,000 MCG/100 ML IV.SOLN IVC SCH ×3 (04:50→21:47)
[2020-02-20 05:01] LABS: Magnesium 1.7 mg/dL (1.6-2.6); Potassium 3.7 mEq/L (3.5-5.1)
[2020-02-20 05:02] LABS: Calcium 7.6 mg/dL (8.6-10.3); Phosphorous 2.4 mg/dL (2.7-4.5)
[2020-02-20] MEDS ORDERED: Potassium Phosphate 44 MEQ in 0.9 % Sodium Chloride 250 ML IVPB PRN (05:27)
[2020-02-20] MEDS ORDERED: Calcium Gluconate 1gm/50mL 1 GM/50 ML BAG IVPB PRN (05:27)
[2020-02-20] MEDS: Ampicillin/Sulbactam 3,000 MG in 0.9 % Sodium Chloride Mini Bag 100 ML IVPB SCH ×2 (05:44→18:17)
[2020-02-20 05:49] LABS: Platelet Estimate Normal (Normal); Toxic Granulation Present (Not Present)
[2020-02-20] MEDS: 0.9 % Sodium Chloride w KCl 20 MEQ/1,000 ML MLS IVC SCH ×2 (07:34→07:35)
[2020-02-20] MEDS: Heparin 25,000UNIT/250ML 1/2NS 25,000 UNIT/250 ML IV.SOLN IVC SCH (07:37)
[2020-02-20] MEDS ORDERED: Dexmedetomidine HCl 400 MCG/100 ML MLS IVC ONE (08:58)
[2020-02-20] MEDS: Dexmedetomidine HCl 400 MCG/100 ML MLS IVC SCH (09:02)
[2020-02-20] MEDS: Pantoprazole 40 MG VIAL IVP SCH (09:24)
[2020-02-20] MEDS: Chlorhexidine Rinse 15 ML MOUTHWASH MM SCH ×2 (09:24→19:26)
[2020-02-20] MEDS ORDERED: Dextrose Gel 15 GM/37.5 ML TUBE PO PRN ×2 (09:48)
[2020-02-20] MEDS ORDERED: D5% in Water 1,000 ML IVC PRN (09:48)
[2020-02-20] MEDS ORDERED: *HR* Dextrose 50 % in Water (Vial) 50 ML VIAL IVP PRN ×2 (09:48→10:15)
[2020-02-20] MEDS: Insulin DETEMIR 100 UNIT/ML X5UNITS SQ SCH ×2 (10:26→19:32)
[2020-02-20] MEDS: Insulin LISPRO 300 UNITS/3 ML VIAL SQ SCH ×5 (10:26→23:31)
[2020-02-20] MEDS ORDERED: Insulin LISPRO 300 UNITS/3 ML VIAL SQ SCH (11:30)
[2020-02-20 12:17] LABS: VBG Ionized Calcium 1.16 mmol/L (1.15-1.35)
[2020-02-20 12:33] LABS: Magnesium 2.1 mg/dL (1.6-2.6); Phosphorous 2.9 mg/dL (2.7-4.5)
[2020-02-20 12:46] LABS: Calcium 7.8 mg/dL (8.6-10.3); Potassium 4.4 mEq/L (3.5-5.1)
[2020-02-20] MEDS: Vasopressin 40 UNIT in D5% in Water 100 ML IVC SCH (19:09)
[2020-02-20] MEDS: Midazolam HCl 50 MG/100 ML IV.SOLN IVC SCH (19:10)
[2020-02-21] MEDS: Dexmedetomidine HCl 400 MCG/100 ML MLS IVC SCH (01:17)
[2020-02-21] MEDS: FentaNYL (PF) 1,000 MCG/100 ML IV.SOLN IVC SCH (03:30)
[2020-02-21] MEDS: Artificial Tears SOLN 15 ML BOTTLE BOTH EYES SCH ×2 (04:01→09:10)
[2020-02-21] MEDS: Insulin LISPRO 300 UNITS/3 ML VIAL SQ SCH ×4 (04:02→18:18)
[2020-02-21 04:25] LABS: Basophils % 0.2 %; Immature Granulocytes % 0.6 % (0-4); Red Cell Distribution Width 13.5 % (11.5-14.5)
[2020-02-21 04:27] LABS: Eosinophils # 0.1 K/mcL (0.0-0.6); Eosinophils % 0.4 %; Hematocrit 34.6 % (37.5-50.1); Immature Platelets 3.7 % (1.1-6.1); Lymphocytes # 2.1 K/mcL (0.6-4.6); Lymphocytes % 11.6 %; Mean Corpuscular HGB Conc 31.8 g/dL (31.6-35.5); Mean Corpuscular Hemoglobin 27.7 pg (28.0-33.3); Mean Corpuscular Volume 87.2 fL (83.0-100.0); Mean Platelet Volume 10.4 fL (9.4-12.4); Monocytes # 0.8 K/mcL (0.0-1.3); Monocytes % 4.4 %; Neutrophils # 14.8 K/mcL (1.6-8.9); Nucleated Red Blood Cells 0.1 /100 WBC (0); Platelet Count 124 K/mcL (140-400); Red Blood Count 3.97 M/mcL (4.19-5.50); Segmented Neutrophils % 82.8 %; White Blood Count 17.9 K/mcL (4.3-11.1)
[2020-02-21 04:43] LABS: Calcium 7.8 mg/dL (8.6-10.3); Potassium 5.4 mEq/L (3.5-5.1)
[2020-02-21] MEDS: Norepinephrine 8 MG in 0.9 % Sodium Chloride 250 ML IVC SCH (05:49)
[2020-02-21] MEDS: Ampicillin/Sulbactam 3,000 MG in 0.9 % Sodium Chloride Mini Bag 100 ML IVPB SCH ×2 (05:55→18:54)
[2020-02-21 06:06] LABS: ABG Base Excess 2 mEq/L (-2 to 3); ABG HCO3 29 mEq/L (21-27); ABG Oxygen Saturation 98 % (95-98); ABG PCO2 52 mmHg (35-45); ABG PH 7.35 pH Units (7.32-7.45); ABG PO2 112 mmHg (85-104); ABG TCO2 30 mEq/L (20-26); Blood Gas Modality AF; Blood Gas VT 500 cc
[2020-02-21] MEDS: Heparin 25,000UNIT/250ML 1/2NS 25,000 UNIT/250 ML IV.SOLN IVC SCH ×2 (06:30→09:24)
[2020-02-21] MEDS: Chlorhexidine Rinse 15 ML MOUTHWASH MM SCH ×2 (09:14→21:11)
[2020-02-21] MEDS: Pantoprazole 40 MG VIAL IVP SCH (09:15)
[2020-02-21] MEDS ORDERED: Insulin LISPRO 300 UNITS/3 ML VIAL SQ SCH (09:24)
[2020-02-21] MEDS ORDERED: *HR* LORazepam 2 MG/ML VIAL IVP ONE (12:47)
[2020-02-21] MEDS ORDERED: *HR* LORazepam 2 MG/ML VIAL ONE (12:51)
[2020-02-21 15:34] LABS: VBG Ionized Calcium 1.14 mmol/L (1.15-1.35)
[2020-02-21 15:51] LABS: Calcium 8.4 mg/dL (8.6-10.3); Magnesium 2.1 mg/dL (1.6-2.6); Phosphorous 2.8 mg/dL (2.7-4.5)
[2020-02-21] MEDS ORDERED: Valproic Acid INJ 1,000 MG in 0.9 % Sodium Chloride 100 ML IVPB ONE (16:06)
[2020-02-21] MEDS ORDERED: *HR* LORazepam 2 MG/ML VIAL IVP PRN (16:07)
[2020-02-21] MEDS: *HR* Heparin 5,000 UNIT/ML VIAL SQ SCH ×2 (16:22→21:14)
[2020-02-21] MEDS: *HR* Metoprolol 5 MG/5 ML VIAL IVP SCH (18:53)
[2020-02-21] MEDS ORDERED: Insulin DETEMIR 100 UNIT/ML X5UNITS SQ SCH (21:00)
[2020-02-22] MEDS: Ampicillin/Sulbactam 3,000 MG in 0.9 % Sodium Chloride Mini Bag 100 ML IVPB SCH ×4 (00:19→17:31)
[2020-02-22] MEDS: *HR* Metoprolol 5 MG/5 ML VIAL IVP SCH ×4 (00:19→17:27)
[2020-02-22] MEDS: Insulin LISPRO 300 UNITS/3 ML VIAL SQ SCH ×4 (00:20→17:39)
[2020-02-22] MEDS ORDERED: Valproic Acid INJ 500 MG in 0.9 % Sodium Chloride 100 ML IVPB SCH (04:00)
[2020-02-22 04:10] LABS: Hemoglobin 11.1 g/dL (12.9-16.9); Red Cell Distribution Width 13.6 % (11.5-14.5)
[2020-02-22 04:12] LABS: Hematocrit 35.9 % (37.5-50.1); Immature Platelets 5.2 % (1.1-6.1); Mean Corpuscular HGB Conc 30.9 g/dL (31.6-35.5); Mean Corpuscular Hemoglobin 27.3 pg (28.0-33.3); Mean Corpuscular Volume 88.4 fL (83.0-100.0); Mean Platelet Volume 11.3 fL (9.4-12.4); Red Blood Count 4.06 M/mcL (4.19-5.50); White Blood Count 11.6 K/mcL (4.3-11.1)
[2020-02-22 04:14] LABS: VBG Ionized Calcium 1.15 mmol/L (1.15-1.35)
[2020-02-22 04:29] LABS: Calcium 8.8 mg/dL (8.6-10.3); Magnesium 2.1 mg/dL (1.6-2.6); Phosphorous 2.7 mg/dL (2.7-4.5); Potassium 4.9 mEq/L (3.5-5.1)
[2020-02-22] MEDS: *HR* Heparin 5,000 UNIT/ML VIAL SQ SCH ×3 (05:40→20:41)
[2020-02-22] MEDS: Dexmedetomidine HCl 400 MCG/100 ML MLS IVC SCH (08:16)
[2020-02-22] MEDS: Pantoprazole 40 MG VIAL IVP SCH (09:22)
[2020-02-22] MEDS: Chlorhexidine Rinse 15 ML MOUTHWASH MM SCH (09:22)
[2020-02-22] MEDS ORDERED: D5% in Water 1,000 ML IVC PRN (12:59)
[2020-02-22] MEDS ORDERED: Dextrose Gel 15 GM/37.5 ML TUBE PO PRN ×2 (12:59)
[2020-02-22] MEDS ORDERED: Naloxone 0.4 MG/ML INJ IVP PRN (12:59)
[2020-02-22] MEDS ORDERED: *HR* LORazepam 2 MG/ML VIAL IVP PRN (12:59)
[2020-02-22] MEDS ORDERED: *HR* Dextrose 50 % in Water (Vial) 50 ML VIAL IVP PRN (12:59)
[2020-02-22 13:05] LABS: Total Protein 5.3 g/dL (6.4-8.9)
[2020-02-22] MEDS: Insulin DETEMIR 100 UNIT/ML X5UNITS SQ SCH (20:41)
[2020-02-23] MEDS: Valproic Acid INJ 500 MG in 0.9 % Sodium Chloride 100 ML IVPB SCH ×3 (00:17→16:09)
[2020-02-23] MEDS: Ampicillin/Sulbactam 3,000 MG in 0.9 % Sodium Chloride Mini Bag 100 ML IVPB SCH ×5 (00:27→23:57)
[2020-02-23] MEDS: *HR* Metoprolol 5 MG/5 ML VIAL IVP SCH ×5 (00:27→23:57)
[2020-02-23] MEDS: Insulin LISPRO 300 UNITS/3 ML VIAL SQ SCH ×4 (00:28→18:20)
[2020-02-23] MEDS: *HR* Heparin 5,000 UNIT/ML VIAL SQ SCH ×3 (06:31→21:59)
[2020-02-23] MEDS: Pantoprazole 40 MG VIAL IVP SCH (09:43)
[2020-02-23 10:33] LABS: Basophils % 0.3 %
[2020-02-23 10:35] LABS: Eosinophils # 0.1 K/mcL (0.0-0.6); Eosinophils % 1.7 %; Hematocrit 40.1 % (37.5-50.1); Hemoglobin 12.9 g/dL (12.9-16.9); Immature Granulocytes % 0.1 % (0-4); Immature Platelets 7.1 % (1.1-6.1); Lymphocytes # 1.8 K/mcL (0.6-4.6); Lymphocytes % 23.9 %; Mean Corpuscular HGB Conc 32.2 g/dL (31.6-35.5); Mean Corpuscular Hemoglobin 27.3 pg (28.0-33.3); Mean Corpuscular Volume 84.8 fL (83.0-100.0); Mean Platelet Volume 10.8 fL (9.4-12.4); Monocytes # 0.5 K/mcL (0.0-1.3); Monocytes % 6.8 %; Neutrophils # 5.1 K/mcL (1.6-8.9); Platelet Count 136 K/mcL (140-400); Red Blood Count 4.73 M/mcL (4.19-5.50); Red Cell Distribution Width 12.5 % (11.5-14.5); Segmented Neutrophils % 67.2 %; White Blood Count 7.6 K/mcL (4.3-11.1)
[2020-02-23 10:52] LABS: Alanine Aminotransferase 13 Units/L (7-52); Albumin 3.1 g/dL (3.5-5.7); Albumin/Globulin Ratio 1.2 (1.1-2.2); Alkaline Phosphatase 131 Units/L (34-104); Aspartate Amino Transferase 10 Units/L (13-39); Bilirubin,Total 0.6 mg/dL (0.3-1.0); Blood Urea Nitrogen 14 mg/dL (6-20); Calcium 8.9 mg/dL (8.6-10.3); Carbon Dioxide 26 mEq/L (23-29); Chloride 104 mEq/L (98-107); Globulin 2.6 g/dL (2.4-3.5); Glucose 159 mg/dL (70-105); Magnesium 1.8 mg/dL (1.6-2.6); Osmolality,Calculated 292 (280-300); Phosphorous 2.7 mg/dL (2.7-4.5); Potassium 3.7 mEq/L (3.5-5.1); Sodium 139 mEq/L (136-145); Total Protein 5.7 g/dL (6.4-8.9)
[2020-02-23 11:08] LABS: BUN/Creatinine Ratio 11 (6-26); eGFR For African Americans > 60 (> 60); eGFR For Non-African Americans > 60 (> 60)
[2020-02-23] MEDS ORDERED: Calcium Gluconate 1gm/50mL 1 GM/50 ML BAG IVPB ONE (17:00)
[2020-02-23] MEDS: Insulin DETEMIR 100 UNIT/ML X5UNITS SQ SCH (21:42)
[2020-02-24] MEDS: Insulin LISPRO 300 UNITS/3 ML VIAL SQ SCH ×4 (00:05→18:31)
[2020-02-24] MEDS: Valproic Acid INJ 500 MG in 0.9 % Sodium Chloride 100 ML IVPB SCH ×2 (03:25→17:05)
[2020-02-24] MEDS: *HR* Heparin 5,000 UNIT/ML VIAL SQ SCH ×3 (05:49→23:37)
[2020-02-24] MEDS: *HR* Metoprolol 5 MG/5 ML VIAL IVP SCH ×4 (05:49→23:38)
[2020-02-24] MEDS: Ampicillin/Sulbactam 3,000 MG in 0.9 % Sodium Chloride Mini Bag 100 ML IVPB SCH ×4 (05:49→23:36)
[2020-02-24 08:08] LABS: Hemoglobin 12.6 g/dL (12.9-16.9); Mean Corpuscular HGB Conc 31.5 g/dL (31.6-35.5); Mean Corpuscular Hemoglobin 27.3 pg (28.0-33.3); Mean Corpuscular Volume 86.6 fL (83.0-100.0); Mean Platelet Volume 11.1 fL (9.4-12.4); Platelet Count 180 K/mcL (140-400); Red Blood Count 4.62 M/mcL (4.19-5.50); Red Cell Distribution Width 12.5 % (11.5-14.5); White Blood Count 6.8 K/mcL (4.3-11.1)
[2020-02-24 08:13] LABS: VBG Ionized Calcium 1.09 mmol/L (1.15-1.35)
[2020-02-24 08:29] LABS: BUN/Creatinine Ratio 13 (6-26); Blood Urea Nitrogen 18 mg/dL (6-20); Calcium 8.7 mg/dL (8.6-10.3); Carbon Dioxide 20 mEq/L (23-29); Chloride 101 mEq/L (98-107); Glucose 267 mg/dL (70-105); Osmolality,Calculated 297 (280-300); Potassium 3.8 mEq/L (3.5-5.1); Sodium 138 mEq/L (136-145); eGFR For African Americans > 60 (> 60); eGFR For Non-African Americans 54 (> 60)
[2020-02-24] MEDS: Pantoprazole 40 MG VIAL IVP SCH (09:51)
[2020-02-24] MEDS: 0.9 % Sodium Chloride 1,000 ML IVC SCH ×7 (10:03→23:56)
[2020-02-24] MEDS ORDERED: Calcium Gluconate 1gm/50mL 1 GM/50 ML BAG IVPB SCH ×2 (14:00→17:30)
[2020-02-24 15:50] LABS: BUN/Creatinine Ratio 13 (6-26); Blood Urea Nitrogen 19 mg/dL (6-20); Calcium 8.3 mg/dL (8.6-10.3); Carbon Dioxide 16 mEq/L (23-29); Chloride 101 mEq/L (98-107); Glucose 282 mg/dL (70-105); Osmolality,Calculated 300 (280-300); Potassium 3.6 mEq/L (3.5-5.1); Sodium 139 mEq/L (136-145); eGFR For African Americans > 60 (> 60); eGFR For Non-African Americans 51 (> 60)
[2020-02-24 19:51] LABS: VBG HCO3 14 mEq/L (21-27); VBG PCO2 24 mmHg (41-51); VBG PH 7.39 pH Units (7.32-7.42); VBG PO2 179 mmHg (25-50)
[2020-02-24] MEDS: Insulin DETEMIR 100 UNIT/ML X5UNITS SQ SCH (20:16)
[2020-02-24] MEDS ORDERED: D5% in 0.45% NACL 1,000 ML IVC PRN (20:53)
[2020-02-24] MEDS ORDERED: D5% in 0.45% NACL w KCl 20 MEQ/1,000 ML MLS IVC PRN (20:53)
[2020-02-24] MEDS ORDERED: Insulin LISPRO 300 UNITS/3 ML VIAL SQ PRN ×2 (20:53)
[2020-02-24] MEDS ORDERED: *HR* Dextrose 50 % in Water (Vial) 50 ML VIAL IVP PRN (20:53)
[2020-02-24] MEDS ORDERED: Insulin Human Regular 100 UNIT in 0.9 % Sodium Chloride 100 ML IVC SCH (21:00)
[2020-02-24 22:49] LABS: BUN/Creatinine Ratio 14 (6-26); Blood Urea Nitrogen 20 mg/dL (6-20); Calcium 8.6 mg/dL (8.6-10.3); Carbon Dioxide 16 mEq/L (23-29); Chloride 104 mEq/L (98-107); Glucose 239 mg/dL (70-105); Osmolality,Calculated 298 (280-300); Potassium 3.8 mEq/L (3.5-5.1); Sodium 139 mEq/L (136-145); eGFR For African Americans > 60 (> 60); eGFR For Non-African Americans 50 (> 60)
[2020-02-24] MEDS: 0.9 % Sodium Chloride w KCl 20 MEQ/1,000 ML MLS IVC SCH ×2 (23:52→23:55)
[2020-02-24] MEDS: 0.45 % Sodium Chloride w/KCl 20 MEQ/1,000 ML MLS IVC SCH ×5 (23:53→23:56)
[2020-02-25] MEDS: Insulin LISPRO 300 UNITS/3 ML VIAL SQ SCH ×5 (00:21→21:59)
[2020-02-25 02:07] LABS: Basophils % 0.4 %; Eosinophils # 0.2 K/mcL (0.0-0.6); Eosinophils % 4.2 %; Hematocrit 35.7 % (37.5-50.1); Hemoglobin 11.3 g/dL (12.9-16.9); Immature Granulocytes % 0.4 % (0-4); Lymphocytes # 1.5 K/mcL (0.6-4.6); Lymphocytes % 27.1 %; Mean Corpuscular HGB Conc 31.7 g/dL (31.6-35.5); Mean Corpuscular Hemoglobin 27.7 pg (28.0-33.3); Mean Corpuscular Volume 87.5 fL (83.0-100.0); Mean Platelet Volume 10.8 fL (9.4-12.4); Monocytes # 0.5 K/mcL (0.0-1.3); Monocytes % 8.6 %; Neutrophils # 3.4 K/mcL (1.6-8.9); Platelet Count 243 K/mcL (140-400); Red Blood Count 4.08 M/mcL (4.19-5.50); Red Cell Distribution Width 12.7 % (11.5-14.5); Segmented Neutrophils % 59.3 %; White Blood Count 5.7 K/mcL (4.3-11.1)
[2020-02-25] MEDS: 0.45 % Sodium Chloride w/KCl 20 MEQ/1,000 ML MLS IVC SCH ×26 (02:13→18:16)
[2020-02-25] MEDS: 0.9 % Sodium Chloride 1,000 ML IVC SCH ×26 (02:13→18:16)
[2020-02-25] MEDS: 0.9 % Sodium Chloride w KCl 20 MEQ/1,000 ML MLS IVC SCH ×11 (02:13→18:16)
[2020-02-25 02:26] LABS: BUN/Creatinine Ratio 12 (6-26); Blood Urea Nitrogen 18 mg/dL (6-20); Calcium 8.3 mg/dL (8.6-10.3); Carbon Dioxide 18 mEq/L (23-29); Chloride 107 mEq/L (98-107); Glucose 212 mg/dL (70-105); Magnesium 1.9 mg/dL (1.6-2.6); Osmolality,Calculated 300 (280-300); Potassium 3.7 mEq/L (3.5-5.1); Sodium 141 mEq/L (136-145); eGFR For African Americans > 60 (> 60); eGFR For Non-African Americans 50 (> 60)
[2020-02-25] MEDS: Valproic Acid INJ 500 MG in 0.9 % Sodium Chloride 100 ML IVPB SCH ×2 (03:04→16:34)
[2020-02-25] MEDS: Ampicillin/Sulbactam 3,000 MG in 0.9 % Sodium Chloride Mini Bag 100 ML IVPB SCH ×3 (04:58→18:04)
[2020-02-25] MEDS: *HR* Metoprolol 5 MG/5 ML VIAL IVP SCH ×3 (04:58→18:03)
[2020-02-25] MEDS: *HR* Heparin 5,000 UNIT/ML VIAL SQ SCH ×2 (04:59→13:44)
[2020-02-25 06:18] LABS: BUN/Creatinine Ratio 13 (6-26); Blood Urea Nitrogen 17 mg/dL (6-20); Calcium 8.6 mg/dL (8.6-10.3); Carbon Dioxide 21 mEq/L (23-29); Chloride 109 mEq/L (98-107); Glucose 155 mg/dL (70-105); Magnesium 1.9 mg/dL (1.6-2.6); Osmolality,Calculated 299 (280-300); Potassium 3.4 mEq/L (3.5-5.1); Sodium 142 mEq/L (136-145); eGFR For African Americans > 60 (> 60); eGFR For Non-African Americans 55 (> 60)
[2020-02-25] MEDS ORDERED: Aspirin 325 MG TABLET PO SCH (09:15)
[2020-02-25] MEDS ORDERED: Aspirin 81 MG TAB.CHEW PO SCH (09:30)
[2020-02-25] MEDS: Pantoprazole 40 MG VIAL IVP SCH (10:01)
[2020-02-25] MEDS ORDERED: MOM Conc 10 ML UD.LIQ PO ONE (10:57)
[2020-02-25 17:45] LABS: BUN/Creatinine Ratio 11 (6-26); Blood Urea Nitrogen 14 mg/dL (6-20); Calcium 8.6 mg/dL (8.6-10.3); Carbon Dioxide 16 mEq/L (23-29); Chloride 105 mEq/L (98-107); Glucose 335 mg/dL (70-105); Osmolality,Calculated 302 (280-300); Potassium 3.9 mEq/L (3.5-5.1); Sodium 139 mEq/L (136-145); eGFR For African Americans > 60 (> 60); eGFR For Non-African Americans > 60 (> 60)
[2020-02-25] MEDS ORDERED: 0.9 % Sodium Chloride 1,000 ML IVC SCH ×2 (18:38)
[2020-02-25] MEDS ORDERED: 0.45 % Sodium Chloride w/KCl 20 MEQ/1,000 ML MLS IVC SCH ×2 (18:38)
[2020-02-25] MEDS ORDERED: *HR* HYDROcodone/Acet 5/325 mg TABLET PO PRN (18:38)
[2020-02-25] MEDS ORDERED: Acetaminophen 325 MG TABLET PO PRN (18:38)
[2020-02-25] MEDS ORDERED: Insulin DETEMIR 100 UNIT/ML X5UNITS SQ SCH (21:00)
[2020-02-25] MEDS: Gabapentin 300 MG CAPSULE PO SCH ×2 (21:59→22:35)
[2020-02-25] MEDS: Famotidine 20 MG TABLET PO SCH (22:35)
[2020-02-25] MEDS: carvediloL 6.25 MG TABLET PO SCH (22:36)
[2020-02-26] MEDS: lisinopriL 10 MG TABLET PO SCH (08:56)
[2020-02-26] MEDS: Gabapentin 300 MG CAPSULE PO SCH ×3 (08:56→22:48)
[2020-02-26] MEDS: Insulin LISPRO 300 UNITS/3 ML VIAL SQ SCH ×4 (08:56→22:49)
[2020-02-26] MEDS: Famotidine 20 MG TABLET PO SCH ×2 (08:57→22:48)
[2020-02-26] MEDS: carvediloL 6.25 MG TABLET PO SCH ×2 (08:57→16:34)
[2020-02-26] MEDS: Aspirin 81 MG TAB.CHEW PO SCH (08:58)
[2020-02-26 10:50] LABS: Hematocrit 33.9 % (37.5-50.1); Hemoglobin 10.7 g/dL (12.9-16.9); Mean Corpuscular HGB Conc 31.6 g/dL (31.6-35.5); Mean Corpuscular Hemoglobin 27.6 pg (28.0-33.3); Mean Corpuscular Volume 87.6 fL (83.0-100.0); Mean Platelet Volume 10.8 fL (9.4-12.4); Platelet Count 301 K/mcL (140-400); Red Blood Count 3.87 M/mcL (4.19-5.50); Red Cell Distribution Width 12.7 % (11.5-14.5)
[2020-02-26] MEDS ORDERED: carvediloL 6.25 MG TABLET PO ONE (11:04)
[2020-02-26 11:10] LABS: BUN/Creatinine Ratio 10 (6-26); Blood Urea Nitrogen 13 mg/dL (6-20); Calcium 8.3 mg/dL (8.6-10.3); Carbon Dioxide 22 mEq/L (23-29); Chloride 105 mEq/L (98-107); Glucose 315 mg/dL (70-105); Osmolality,Calculated 298 (280-300); Potassium 3.7 mEq/L (3.5-5.1); Sodium 138 mEq/L (136-145); eGFR For African Americans > 60 (> 60); eGFR For Non-African Americans 57 (> 60)
[2020-02-26] MEDS: Insulin DETEMIR 100 UNIT/ML X5UNITS SQ SCH (22:48)
[2020-02-27 04:24] LABS: BUN/Creatinine Ratio 11 (6-26); Blood Urea Nitrogen 14 mg/dL (6-20); Calcium 8.4 mg/dL (8.6-10.3); Carbon Dioxide 22 mEq/L (23-29); Chloride 105 mEq/L (98-107); Glucose 299 mg/dL (70-105); Osmolality,Calculated 294 (280-300); Potassium 3.4 mEq/L (3.5-5.1); Sodium 136 mEq/L (136-145); eGFR For African Americans > 60 (> 60); eGFR For Non-African Americans 57 (> 60)
[2020-02-27] MEDS: Insulin LISPRO 300 UNITS/3 ML VIAL SQ SCH ×5 (07:35→20:55)
[2020-02-27] MEDS: Famotidine 20 MG TABLET PO SCH ×2 (08:58→20:55)
[2020-02-27] MEDS: lisinopriL 10 MG TABLET PO SCH (08:58)
[2020-02-27] MEDS: Gabapentin 300 MG CAPSULE PO SCH ×3 (09:01→20:55)
[2020-02-27] MEDS: carvediloL 6.25 MG TABLET PO SCH ×2 (09:02→16:42)
[2020-02-27] MEDS: Aspirin 81 MG TAB.CHEW PO SCH (09:03)
[2020-02-27 15:18] LABS: Adenovirus Not Detected (Not Detect); Bordetella Pertussis Not Detected (Not Detect); Chlamydophila pneumoniae Not Detected (Not Detect); Coronavirus 229E Not Detected (Not Detect); Coronavirus HKU1 Not Detected (Not Detect); Coronavirus NL63 Not Detected (Not Detect); Coronavirus OC43 Not Detected (Not Detect); Human Metapneumovirus Not Detected (Not Detect); Human Rhinovirus/Enterovirus Not Detected (Not Detect); Influenza A Subtype 2009 H1 Not Detected (Not Detect); Influenza B Not Detected (Not Detect); Mycoplasma pneumoniae Not Detected (Not Detect); Parainfluenza Virus 1 Not Detected (Not Detect); Parainfluenza Virus 2 Not Detected (Not Detect); Parainfluenza Virus 3 Not Detected (Not Detect); Parainfluenza Virus 4 Not Detected (Not Detect); Respiratory Syncytial Virus Not Detected (Not Detect); SARS-CoV-2 Not Detected (Not Detect)
[2020-02-27 15:22] LABS: Hematocrit 33.2 % (37.5-50.1); Hemoglobin 10.4 g/dL (12.9-16.9); Mean Corpuscular HGB Conc 31.3 g/dL (31.6-35.5); Mean Corpuscular Hemoglobin 27.4 pg (28.0-33.3); Mean Corpuscular Volume 87.4 fL (83.0-100.0); Mean Platelet Volume 10.8 fL (9.4-12.4); Platelet Count 283 K/mcL (140-400); Red Cell Distribution Width 12.9 % (11.5-14.5); White Blood Count 5.5 K/mcL (4.3-11.1)
[2020-02-27] MEDS: Insulin DETEMIR 100 UNIT/ML X5UNITS SQ SCH (20:55)
[2020-02-28 05:56] LABS: Red Cell Distribution Width 13.2 % (11.5-14.5)
[2020-02-28 06:36] LABS: Calcium 8.2 mg/dL (8.6-10.3); Potassium 4.5 mEq/L (3.5-5.1)
[2020-02-28 06:52] LABS: Hematocrit 36.3 % (37.5-50.1); Hemoglobin 10.5 g/dL (12.9-16.9); Mean Corpuscular HGB Conc 28.9 g/dL (31.6-35.5); Mean Corpuscular Hemoglobin 27.7 pg (28.0-33.3); Mean Corpuscular Volume 95.8 fL (83.0-100.0); Platelet Count 223 K/mcL (140-400); Red Blood Count 3.79 M/mcL (4.19-5.50); White Blood Count 3.9 K/mcL (4.3-11.1)
[2020-02-28] MEDS: Famotidine 20 MG TABLET PO SCH ×2 (08:07→21:26)
[2020-02-28] MEDS: lisinopriL 10 MG TABLET PO SCH (08:09)
[2020-02-28] MEDS: carvediloL 6.25 MG TABLET PO SCH ×2 (08:10→16:53)
[2020-02-28] MEDS: Aspirin 81 MG TAB.CHEW PO SCH (08:11)
[2020-02-28] MEDS: Gabapentin 300 MG CAPSULE PO SCH ×3 (08:13→21:26)
[2020-02-28] MEDS: Insulin LISPRO 300 UNITS/3 ML VIAL SQ SCH ×7 (08:14→21:25)
[2020-02-28] MEDS ORDERED: Ringers Solution, Lactated 1,000 ML IVC ONE (08:47)
[2020-02-28] MEDS: Insulin DETEMIR 100 UNIT/ML X5UNITS SQ SCH (09:53)
[2020-02-28 10:45] LABS: Protein/Creatinine Ratio,Urine 0.22 mg/mg (0.00-0.20)
[2020-02-28 11:00] LABS: Bilirubin,Urine Negative (Negative); Blood,Urine Large (Negative); Clarity,Urine Clear (Clear); Color,Urine Light-Yellow (Yellow); Glucose,Urine (UA) >=1000 mg/dL (Normal); Hyaline Casts,Urine Many per lpf (None Seen); Ketones,Urine Negative (Negative); Leukocyte Esterase,Urine Negative (Negative); Mucus,Urine Few per lpf (None-Few); Nitrite,Urine Negative (Negative); PH,Urine 5.5 pH Units (5.0-8.0); Protein,Urine Trace mg/dL (Neg-Trace); RBC,Urine TNTC per hpf (0-3); Specific Gravity,Urine 1.025 (1.010-1.025); Sperm,Urine Present (None Seen); Urobilinogen,Urine Normal (Normal)
[2020-02-28 17:23] LABS: Calcium 8.3 mg/dL (8.6-10.3); Potassium 3.9 mEq/L (3.5-5.1)
[2020-02-28] MEDS ORDERED: Insulin DETEMIR 100 UNIT/ML X5UNITS SQ SCH (21:00)
[2020-02-29 05:29] LABS: BUN/Creatinine Ratio 13 (6-26); Blood Urea Nitrogen 16 mg/dL (6-20); Calcium 8.7 mg/dL (8.6-10.3); Carbon Dioxide 26 mEq/L (23-29); Chloride 106 mEq/L (98-107); Glucose 206 mg/dL (70-105); Osmolality,Calculated 295 (280-300); Sodium 139 mEq/L (136-145); eGFR For African Americans > 60 (> 60); eGFR For Non-African Americans > 60 (> 60)
[2020-02-29 05:32] LABS: Hemoglobin 10.3 g/dL (12.9-16.9); Mean Corpuscular HGB Conc 32.2 g/dL (31.6-35.5); Mean Corpuscular Hemoglobin 27.8 pg (28.0-33.3); Mean Platelet Volume 11.3 fL (9.4-12.4); Platelet Count 289 K/mcL (140-400); Red Blood Count 3.71 M/mcL (4.19-5.50); Red Cell Distribution Width 13.1 % (11.5-14.5); White Blood Count 4.8 K/mcL (4.3-11.1)
[2020-02-29 07:58] LABS: Mean Corpuscular Volume 86.3 fL (83.0-100.0)
[2020-02-29] MEDS: Insulin LISPRO 300 UNITS/3 ML VIAL SQ SCH ×6 (09:16→17:57)
[2020-02-29] MEDS: Aspirin 81 MG TAB.CHEW PO SCH (10:36)
[2020-02-29 10:47] VITALS: BP 115/70
[2020-02-29] MEDS: Gabapentin 300 MG CAPSULE PO SCH ×2 (10:50→16:01)
[2020-02-29] MEDS: Famotidine 20 MG TABLET PO SCH (10:50)
[2020-02-29] MEDS: carvediloL 6.25 MG TABLET PO SCH ×2 (10:50→17:57)
[2020-02-29] MEDS: lisinopriL 10 MG TABLET PO SCH (10:51)
[2020-02-29] MEDS: Insulin DETEMIR 100 UNIT/ML X5UNITS SQ SCH (11:38)
[2020-02-29] MEDS ORDERED: cefTRIAXone 1,000 MG in Water for inj. (sterile) 10 ML IVP SCH (14:00)
== END 2020-02-29 19:41 | disposition other institution (70) | DRG 871 ==
LOC: EMEROOARM 18:48 → ICNU 18:48 → OBSVTOIN 22:17 → SUATTDRO 22:17 → ICNU 23:11 → 3ANU 02-22 15:11 → ICNU 02-24 22:37 → 3ANU 02-25 20:29
PROVIDERS: ADMIT Internal Medicine; ATTEND Internal Medicine

== ENCOUNTER 2020-06-29 18:46 | Inpatient (IN) ==
[2020-06-29] MEDS ORDERED: 0.9 % Sodium Chloride 2,000 ML ONE (18:52)
[2020-06-29] MEDS ORDERED: *HR* Ticagrelor 90 MG TABLET PO ONE (18:52)
[2020-06-29] MEDS ORDERED: *HR* Heparin 5,000 UNIT/ML VIAL IVP ONE (18:52)
[2020-06-29] MEDS ORDERED: Aspirin 81 MG TAB.CHEW PO ONE (18:52)
[2020-06-29] MEDS ORDERED: Heparin 1,000 UNITS/500 mL 500 ML ONE (18:53)
[2020-06-29] MEDS ORDERED: *HR* Heparin 10,000 UNIT/10 ML VIAL ONE (18:53)
[2020-06-29] MEDS ORDERED: ISOVUE-370 200 ML INFUS..BTL ONE (18:53)
[2020-06-29] MEDS ORDERED: Nitroglycerin 1,000 MCG/10 ML VIAL IV ONE (18:53)
[2020-06-29] MEDS ORDERED: Insulin Human Regular 10 UNIT in 0.9 % Sodium Chloride 10 ML IV ONE (19:00)
[2020-06-29] MEDS ORDERED: *HR* Midazolam HCl 2 MG/2 ML VIAL ONE (19:00)
[2020-06-29] MEDS ORDERED: Calcium Gluconate 1gm/50mL 1 GM/50 ML BAG IVPB ONE (19:00)
[2020-06-29] MEDS ORDERED: 0.9 % Sodium Chloride 1,000 ML IVC ONE ×2 (19:00→19:36)
[2020-06-29] MEDS ORDERED: Albuterol 2.5 MG/3 ML NEBULIZER AER ONE (19:00)
[2020-06-29] MEDS ORDERED: *HR* FentaNYL (PF) 100 MCG/2 ML VIAL ONE (19:01)
[2020-06-29 19:15] LABS: Basophils % 0.1 %; Hematocrit 37.8 % (37.5-50.1); Hemoglobin 11.7 g/dL (12.9-16.9); Immature Granulocytes % 0.5 % (0-4); Lymphocytes # 0.6 K/mcL (0.6-4.6); Lymphocytes % 2.8 %; Mean Corpuscular Hemoglobin 27.2 pg (28.0-33.3); Mean Corpuscular Volume 87.9 fL (83.0-100.0); Monocytes # 1.1 K/mcL (0.0-1.3); Monocytes % 5.5 %; Neutrophils # 18.3 K/mcL (1.6-8.9); Platelet Count 304 K/mcL (140-400); Red Cell Distribution Width 14.6 % (11.5-14.5); Segmented Neutrophils % 91.1 %; White Blood Count 20.1 K/mcL (4.3-11.1)
[2020-06-29 19:16] LABS: INR 1.1; Prothrombin Time 12.7 Seconds (9.4-12.1)
[2020-06-29 19:18] LABS: Activated Partial Thrombo Time 34.6 Seconds (26.0-36.0)
[2020-06-29 19:35] LABS: Calcium 9.4 mg/dL (8.6-10.3); Potassium 7.2 mEq/L (3.5-5.1); Troponin I 0.05 ng/mL (< 0.04)
[2020-06-29 20:23] LABS: VBG HCO3 11 mEq/L (21-27); VBG PCO2 34 mmHg (41-51); VBG PH 7.13 pH Units (7.32-7.42); VBG PO2 105 mmHg (25-50)
[2020-06-29] MEDS: Insulin Human Regular 100 UNIT in 0.9 % Sodium Chloride 100 ML IVC SCH (20:29)
[2020-06-29 21:24] LABS: Bilirubin,Urine Negative (Negative); Blood,Urine Trace (Negative); Clarity,Urine Clear (Clear); Color,Urine Colorless (Yellow); Glucose,Urine (UA) >=1000 mg/dL (Normal); Ketones,Urine 100 mg/dL (Negative); Leukocyte Esterase,Urine Negative (Negative); Nitrite,Urine Negative (Negative); PH,Urine 5.5 pH Units (5.0-8.0); Protein,Urine Negative (Neg-Trace); RBC,Urine 0-3 per hpf (0-3); Specific Gravity,Urine 1.018 (1.010-1.025); Uric Acid Crystals,Urine Present; Urobilinogen,Urine Normal (Normal)
[2020-06-29 21:34] LABS: Amphetamine Screen,Urine Negative ng/mL (Cutoff=1000); Barbiturate Screen,Urine Negative ng/mL (Cutoff=200); Benzodiazepines Screen,Urine Negative ng/mL (Cutoff=200); Cannabinoid Screen,Urine Negative ng/mL (Cutoff = 50); Cocaine Screen,Urine Negative ng/mL (Cutoff= 300); Opiate Screen,Urine Negative ng/mL (Cutoff=300); Phencyclidine Screen,Urine Negative ng/mL (Cutoff=25)
[2020-06-29 22:09] LABS: Albumin 3.9 g/dL (3.5-5.7); Albumin/Globulin Ratio 1.3 (1.1-2.2); Bilirubin,Direct 0.1 mg/dL (0.0-0.2); Bilirubin,Indirect 0.5 mg/dL (0.0-1.0); Bilirubin,Total 0.6 mg/dL (0.3-1.0); Total Protein 6.9 g/dL (6.4-8.9)
[2020-06-29] MEDS: 0.45 % Sodium Chloride w/KCl 20 MEQ/1,000 ML MLS IVC SCH (22:11)
[2020-06-29] MEDS ORDERED: Naloxone 0.4 MG/ML INJ IVP PRN (22:12)
[2020-06-29] MEDS ORDERED: Ondansetron 4 MG/2 ML VIAL IVP PRN (22:12)
[2020-06-30 00:28] LABS: VBG HCO3 13 mEq/L (21-27); VBG PCO2 29 mmHg (41-51); VBG PH 7.27 pH Units (7.32-7.42); VBG PO2 131 mmHg (25-50)
[2020-06-30] MEDS: 0.45 % Sodium Chloride w/KCl 20 MEQ/1,000 ML MLS IVC SCH ×4 (00:39→11:40)
[2020-06-30] MEDS: Pantoprazole 40 MG VIAL IVP SCH ×2 (00:40→11:40)
[2020-06-30 00:57] LABS: Calcium 8.8 mg/dL (8.6-10.3); Magnesium 1.8 mg/dL (1.6-2.6); Potassium 5.4 mEq/L (3.5-5.1); Troponin I 0.12 ng/mL (< 0.04)
[2020-06-30] MEDS ORDERED: D5% in 0.45% NACL 1,000 ML IVC PRN (01:03)
[2020-06-30] MEDS ORDERED: *HR* Dextrose 50 % in Water (Vial) 50 ML VIAL IVP PRN ×2 (01:03→13:05)
[2020-06-30 04:14] LABS: Basophils % 0.2 %; Eosinophils % 0.1 %; Hematocrit 30.9 % (37.5-50.1); Hemoglobin 10.1 g/dL (12.9-16.9); Immature Granulocytes % 0.5 % (0-4); Lymphocytes # 1.2 K/mcL (0.6-4.6); Mean Corpuscular HGB Conc 32.7 g/dL (31.6-35.5); Mean Corpuscular Volume 82.6 fL (83.0-100.0); Mean Platelet Volume 10.3 fL (9.4-12.4); Monocytes # 1.1 K/mcL (0.0-1.3); Monocytes % 6.5 %; Neutrophils # 14.2 K/mcL (1.6-8.9); Platelet Count 298 K/mcL (140-400); Red Blood Count 3.74 M/mcL (4.19-5.50); Red Cell Distribution Width 14.3 % (11.5-14.5); Segmented Neutrophils % 85.7 %; White Blood Count 16.5 K/mcL (4.3-11.1)
[2020-06-30 04:30] LABS: Albumin 3.5 g/dL (3.5-5.7); Albumin/Globulin Ratio 1.5 (1.1-2.2); Bilirubin,Total 0.4 mg/dL (0.3-1.0); Calcium 8.8 mg/dL (8.6-10.3); Globulin 2.3 g/dL (2.4-3.5); Potassium 4.2 mEq/L (3.5-5.1); Total Protein 5.8 g/dL (6.4-8.9)
[2020-06-30] MEDS: Insulin Human Regular 100 UNIT in 0.9 % Sodium Chloride 100 ML IVC SCH (05:00)
[2020-06-30] MEDS: D5% in 0.45% NACL w KCl 20 MEQ/1,000 ML MLS IVC PRN ×2 (05:05→10:57)
[2020-06-30 06:52] LABS: VBG HCO3 21 mEq/L (21-27); VBG PCO2 28 mmHg (41-51); VBG PH 7.48 pH Units (7.32-7.42); VBG PO2 112 mmHg (25-50)
[2020-06-30 07:09] LABS: Calcium 8.8 mg/dL (8.6-10.3); Potassium 3.8 mEq/L (3.5-5.1)
[2020-06-30] MEDS ORDERED: *HR* Dextrose 50 % in Water (Vial) 50 ML VIAL IVP STA (08:46)
[2020-06-30 10:41] LABS: Calcium 8.6 mg/dL (8.6-10.3); Potassium 4.3 mEq/L (3.5-5.1)
[2020-06-30] MEDS ORDERED: Insulin LISPRO 300 UNITS/3 ML VIAL SUBQ SCH ×2 (11:30→21:00)
[2020-06-30] MEDS ORDERED: Lidocaine -MPF 2% 2 ML VIAL ONE ×2 (12:22)
[2020-06-30] MEDS ORDERED: *HR* Propofol 200 MG/20 ML VIAL IVP ONE (12:22)
[2020-06-30] MEDS ORDERED: Ondansetron 4 MG/2 ML VIAL IVP PRN (13:05)
[2020-06-30] MEDS ORDERED: Gabapentin 300 MG CAPSULE PO SCH (15:00)
[2020-06-30] MEDS ORDERED: *HR* Heparin 5,000 UNIT/ML VIAL IVP PRN ×2 (15:00)
[2020-06-30] MEDS ORDERED: Heparin 25,000UNIT/250ML 1/2NS 25,000 UNIT/250 ML IV.SOLN IVC SCH (15:00)
[2020-06-30 16:19] LABS: Hematocrit 36.2 % (37.5-50.1); Hemoglobin 11.5 g/dL (12.9-16.9); Mean Corpuscular HGB Conc 31.8 g/dL (31.6-35.5); Mean Corpuscular Hemoglobin 26.7 pg (28.0-33.3); Mean Corpuscular Volume 84.2 fL (83.0-100.0); Mean Platelet Volume 10.3 fL (9.4-12.4); Platelet Count 296 K/mcL (140-400); Red Cell Distribution Width 14.7 % (11.5-14.5); White Blood Count 22.4 K/mcL (4.3-11.1)
[2020-06-30] MEDS: Insulin LISPRO 300 UNITS/3 ML VIAL SUBQ SCH (16:19)
[2020-06-30] MEDS: Gabapentin 300 MG CAPSULE PO SCH ×3 (16:20→20:17)
[2020-06-30 16:23] LABS: Heparin anti-factor XA UFH < 0.04 IU/mL (0.30-0.70)
[2020-06-30 16:24] LABS: Prothrombin Time 11.7 Seconds (9.4-12.1)
[2020-06-30] MEDS: *HR* Metoprolol 5 MG/5 ML VIAL IVP SCH (17:58)
[2020-06-30] MEDS ORDERED: Thiamine (B-1) 100 MG in 0.9 % Sodium Chloride 50 ML IVPB STA (18:10)
[2020-06-30] MEDS: Doxycycline 100 MG in 0.9 % Sodium Chloride Mini Bag 100 ML IVPB SCH (18:28)
[2020-06-30 20:17] LABS: Albumin 3.7 g/dL (3.5-5.7); Albumin/Globulin Ratio 1.3 (1.1-2.2); Bilirubin,Direct 0.1 mg/dL (0.0-0.2); Bilirubin,Indirect 0.5 mg/dL (0.0-1.0); Bilirubin,Total 0.6 mg/dL (0.3-1.0); Globulin 2.8 g/dL (2.4-3.5); Total Protein 6.5 g/dL (6.4-8.9)
[2020-06-30] MEDS: carvediloL 6.25 MG TABLET PO SCH (20:18)
[2020-06-30] MEDS: Famotidine 20 MG TABLET PO SCH (20:19)
[2020-06-30] MEDS ORDERED: Insulin DETEMIR 100 UNIT/ML X5UNITS SUBQ SCH ×2 (21:00)
[2020-06-30] MEDS ORDERED: Famotidine 20 MG TABLET PO SCH (21:00)
[2020-06-30] MEDS ORDERED: carvediloL 6.25 MG TABLET PO SCH (21:00)
[2020-07-01] MEDS: Cefepime HCl 2,000 MG in Water for inj. (sterile) 20 ML IVP SCH ×4 (00:07→23:49)
[2020-07-01] MEDS: *HR* Metoprolol 5 MG/5 ML VIAL IVP SCH ×3 (00:07→12:13)
[2020-07-01] MEDS: Pantoprazole 40 MG VIAL IVP SCH ×2 (00:07→12:13)
[2020-07-01] MEDS: Doxycycline 100 MG in 0.9 % Sodium Chloride Mini Bag 100 ML IVPB SCH (05:03)
[2020-07-01 06:23] LABS: Basophils % 0.3 %; Eosinophils # 0.1 K/mcL (0.0-0.6); Eosinophils % 0.6 %; Hematocrit 35.3 % (37.5-50.1); Hemoglobin 11.5 g/dL (12.9-16.9); Immature Granulocytes % 0.3 % (0-4); Lymphocytes # 1.7 K/mcL (0.6-4.6); Lymphocytes % 12.4 %; Mean Corpuscular HGB Conc 32.6 g/dL (31.6-35.5); Mean Corpuscular Hemoglobin 26.8 pg (28.0-33.3); Mean Corpuscular Volume 82.3 fL (83.0-100.0); Mean Platelet Volume 9.7 fL (9.4-12.4); Monocytes # 0.8 K/mcL (0.0-1.3); Monocytes % 5.8 %; Neutrophils # 11.3 K/mcL (1.6-8.9); Platelet Count 286 K/mcL (140-400); Red Blood Count 4.29 M/mcL (4.19-5.50); Red Cell Distribution Width 14.6 % (11.5-14.5); Segmented Neutrophils % 80.6 %
[2020-07-01 06:25] LABS: VBG HCO3 24 mEq/L (21-27); VBG PCO2 41 mmHg (41-51); VBG PH 7.38 pH Units (7.32-7.42); VBG PO2 58 mmHg (25-50)
[2020-07-01 06:44] LABS: BUN/Creatinine Ratio 15 (6-26); Blood Urea Nitrogen 21 mg/dL (6-20); Calcium 9.1 mg/dL (8.6-10.3); Carbon Dioxide 23 mEq/L (23-29); Chloride 106 mEq/L (98-107); Glucose 128 mg/dL (70-105); Magnesium 1.7 mg/dL (1.6-2.6); Osmolality,Calculated 291 (280-300); Phosphorous 2.4 mg/dL (2.7-4.5); Potassium 4.1 mEq/L (3.5-5.1); Sodium 138 mEq/L (136-145); eGFR For African Americans > 60 (> 60); eGFR For Non-African Americans 52 (> 60)
[2020-07-01] MEDS: carvediloL 6.25 MG TABLET PO SCH ×2 (08:22→20:04)
[2020-07-01] MEDS: Famotidine 20 MG TABLET PO SCH ×2 (08:23→20:05)
[2020-07-01] MEDS: Insulin LISPRO 300 UNITS/3 ML VIAL SUBQ SCH ×3 (08:34→16:12)
[2020-07-01] MEDS: Insulin DETEMIR 100 UNIT/ML X5UNITS SUBQ SCH ×3 (08:39→20:13)
[2020-07-01] MEDS ORDERED: Insulin DETEMIR 100 UNIT/ML X5UNITS SUBQ SCH (09:00)
[2020-07-01] MEDS ORDERED: Aspirin Enteric Coated 81 MG Tablet PO SCH (09:00)
[2020-07-01] MEDS ORDERED: *HR* Dextrose 50 % in Water (Vial) 50 ML VIAL IVP PRN (12:57)
[2020-07-01] MEDS ORDERED: Ondansetron 4 MG/2 ML VIAL IVP PRN (12:57)
[2020-07-01] MEDS: Gabapentin 300 MG CAPSULE PO SCH ×2 (15:56→20:05)
[2020-07-01] MEDS: Doxycycline 100 MG CAPSULE PO SCH (20:06)
[2020-07-02] MEDS: Doxycycline 100 MG CAPSULE PO SCH ×2 (07:50→20:04)
[2020-07-02] MEDS: Gabapentin 300 MG CAPSULE PO SCH ×3 (07:50→20:03)
[2020-07-02] MEDS: Famotidine 20 MG TABLET PO SCH ×2 (07:50→20:04)
[2020-07-02] MEDS: carvediloL 6.25 MG TABLET PO SCH ×2 (07:50→16:19)
[2020-07-02] MEDS: Insulin LISPRO 300 UNITS/3 ML VIAL SUBQ SCH ×3 (07:51→16:20)
[2020-07-02] MEDS: Cefepime HCl 2,000 MG in Water for inj. (sterile) 20 ML IVP SCH (07:51)
[2020-07-02] MEDS: Aspirin Enteric Coated 81 MG Tablet PO SCH (07:51)
[2020-07-02] MEDS: Insulin DETEMIR 100 UNIT/ML X5UNITS SUBQ SCH ×2 (08:05→20:05)
[2020-07-03 05:09] LABS: Basophils % 0.4 %; Eosinophils # 0.2 K/mcL (0.0-0.6); Eosinophils % 2.4 %; Hematocrit 37.2 % (37.5-50.1); Hemoglobin 12.1 g/dL (12.9-16.9); Immature Granulocytes % 0.3 % (0-4); Lymphocytes # 2.6 K/mcL (0.6-4.6); Lymphocytes % 28.4 %; Mean Corpuscular HGB Conc 32.5 g/dL (31.6-35.5); Mean Corpuscular Hemoglobin 27.1 pg (28.0-33.3); Mean Corpuscular Volume 83.4 fL (83.0-100.0); Mean Platelet Volume 10.5 fL (9.4-12.4); Monocytes # 0.7 K/mcL (0.0-1.3); Monocytes % 7.5 %; Neutrophils # 5.5 K/mcL (1.6-8.9); Platelet Count 265 K/mcL (140-400); Red Blood Count 4.46 M/mcL (4.19-5.50); Red Cell Distribution Width 14.1 % (11.5-14.5); White Blood Count 9.1 K/mcL (4.3-11.1)
[2020-07-03 05:23] LABS: BUN/Creatinine Ratio 13 (6-26); Blood Urea Nitrogen 19 mg/dL (6-20); Calcium 9.2 mg/dL (8.6-10.3); Carbon Dioxide 25 mEq/L (23-29); Chloride 105 mEq/L (98-107); Glucose 144 mg/dL (70-105); Magnesium 1.8 mg/dL (1.6-2.6); Osmolality,Calculated 291 (280-300); Phosphorous 3.5 mg/dL (2.7-4.5); Potassium 3.6 mEq/L (3.5-5.1); Sodium 138 mEq/L (136-145); eGFR For African Americans > 60 (> 60); eGFR For Non-African Americans 52 (> 60)
[2020-07-03 07:05] VITALS: BP 104/54
[2020-07-03] MEDS: Insulin LISPRO 300 UNITS/3 ML VIAL SUBQ SCH ×2 (08:12→11:49)
[2020-07-03] MEDS: Insulin DETEMIR 100 UNIT/ML X5UNITS SUBQ SCH (08:12)
[2020-07-03] MEDS: Doxycycline 100 MG CAPSULE PO SCH (08:12)
[2020-07-03] MEDS: Famotidine 20 MG TABLET PO SCH (08:12)
[2020-07-03] MEDS: Gabapentin 300 MG CAPSULE PO SCH (08:12)
[2020-07-03] MEDS: carvediloL 6.25 MG TABLET PO SCH (08:12)
[2020-07-03] MEDS: Aspirin Enteric Coated 81 MG Tablet PO SCH (08:12)
== END 2020-07-03 14:05 | disposition home health service (06) | DRG 871 ==
LOC: EMEROOARM 18:46 → ICNU 18:46 → SUATTDRO 22:44 → ICNU 06-30 00:09 → SUATTDRO 06-30 08:22 → 3ANU 07-01 12:49
PROVIDERS: ADMIT Student in an Organized Health Care Education/Training Program; ATTEND Internal Medicine
PROC: ENDOEBX (2020-06-30 13:30)